=== PATIENT | female | born 1950 | race Caucasian/White ===

== ENCOUNTER 2019-08-31 13:02 | Inpatient (IN) | payer MEDICARE ==
[~2019-08-31] VITALS: Ht 172.7 cm; Wt 81.4 kg
[2019-08-31 13:49] LABS: BASO # 0.1 x10^3/uL (0.0-0.2); BASO % 1 % (0-3); EOS # 0.1 x10^3/uL (0.0-0.7); EOS % 1 % (0-3); HEMATOCRIT 40.6 % (36.0-47.0); HEMOGLOBIN 13.7 g/dL (12.0-15.5); LYMPH # 3.9 x10^3/uL (1.0-4.8); LYMPH % 36 % (24-48); MEAN CORPUSCULAR HEMOGLOBIN 31 pg (25-35); MEAN CORPUSCULAR HGB CONC 34 g/dL (31-37); MEAN CORPUSCULAR VOLUME 92 fL (79-100); MONO # 0.7 x10^3/uL (0.0-1.1); MONO % 7 % (0-9); NEUT # 5.9 x10^3uL (1.8-7.7); NEUT % 55 % (31-73); PLATELET COUNT 260 x10^3/uL (140-400); RED BLOOD COUNT 4.43 x10^6/uL (3.50-5.40); RED CELL DISTRIBUTION WIDTH 13.1 % (11.5-14.5); WHITE BLOOD COUNT 10.7 x10^3/uL (4.0-11.0)
[2019-08-31 13:56] LABS: AMPHETAMINE/METHAMPHETAMINE NEG (NEG); BARBITURATES NEG (NEG); BENZODIAZEPINES NEG (NEG); CANNABINOIDS NEG (NEG); COCAINE NEG (NEG); METHADONE NEG (NEG); OPIATES NEG (NEG); PHENCYCLIDINE NEG (NEG)
[2019-08-31 13:58] LABS: CALCIUM 10.3 mg/dL (8.5-10.1); CREATININE 0.8 mg/dL (0.6-1.0); GFR 70.9; POTASSIUM 3.7 mmol/L (3.5-5.1)
[2019-08-31 14:02] LABS: ACETAMIN < 2.0 mcg/mL (10-30); ETHANOL < 10 mg/dL (0-10); SALIC 1.2 mg/dL (2.8-20.0)
[2019-08-31 14:04] LABS: ALBUMIN 3.9 g/dL (3.4-5.0); ALBUMIN/GLOBULIN RATIO 0.9 (1.0-1.7); MAGNESIUM 2.2 mg/dL (1.8-2.4); TOTAL BILIRUBIN 0.3 mg/dL (0.2-1.0); TOTAL PROTEIN 8.4 g/dL (6.4-8.2)
[2019-08-31 14:05] LABS: BACTERIA,URINE MOD /HPF (0-FEW); BILIRUBIN,URINE NEG (NEG); CLARITY,URINE CLEAR; COLOR,URINE YELLOW; GLUCOSE,URINE NEG (NEG); NITRITE,URINE NEG (NEG); SQUAMOUS EPITHELIAL CELL,UR FEW /LPF; UROBILINOGEN,URINE 0.2 mg/dL (0.2 mg/dL); WBC,URINE 20-40 /HPF (0-4)
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
[2019-08-31] MEDS ORDERED: CIPROFLOXACIN HCL 500 MG TABLET PO ONE (14:30)
--- NOTE | 2019-08-31 15:24 | EKG ---
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
[2019-08-31] MEDS ORDERED: CETI10TA24 PO (16:41)
[2019-08-31] MEDS ORDERED: LEVO50TA5 PO (16:41)
[2019-08-31] MEDS ORDERED: OMEG1CAP50 PO (16:41)
[2019-08-31] MEDS ORDERED: GUAI100L12 PO (16:41)
[2019-08-31] MEDS ORDERED: BISA5TAB4 PO (16:41)
[2019-08-31] MEDS ORDERED: SERT50TA PO (16:41)
[2019-08-31] MEDS ORDERED: LEVE500T56 PO (16:41)
[2019-08-31] MEDS ORDERED: LEVE10007 PO (16:41)
[2019-08-31] MEDS ORDERED: QUET100T4 PO (16:41)
[2019-08-31] MEDS ORDERED: CHOL500021 PO (16:41)
[2019-08-31] MEDS ORDERED: IBUP400T18 PO (16:41)
[2019-08-31] MEDS ORDERED: CLON0.5T4 PO ×2 (16:41)
[2019-08-31] MEDS ORDERED: ALEN70TA6 PO (16:41)
[2019-08-31] MEDS ORDERED: ASPI-630 PO (16:41)
[2019-08-31] MEDS ORDERED: DONE10TA7 PO (16:41)
[2019-08-31] MEDS ORDERED: PRAV40TA2 PO (16:41)
[2019-08-31] MEDS ORDERED: ACET325T21 PO (16:41)
[2019-08-31] MEDS ORDERED: LACO150T PO (16:41)
[2019-08-31] MEDS ORDERED: HYDR25SU18 RC (16:41)
[2019-08-31] MEDS ORDERED: HYPR15DR11 OU (16:41)
[2019-08-31] MEDS ORDERED: LEVO5TAB2 PO (16:41)
[2019-08-31] MEDS ORDERED: SALI10002 MM (16:41)
[2019-08-31] MEDS ORDERED: AMLO5TAB10 PO (16:41)
[2019-08-31] MEDS ORDERED: DOCU-109 PO (16:41)
[2019-08-31 17:45] VITALS: BP 164/75
[2019-08-31] MEDS ORDERED: SALIVA SUBSTITUTION COMBO NO 9 MM PRN (18:00)
[2019-08-31] MEDS ORDERED: guaiFENesin 300 MG/15 ML LIQUID PO PRN (18:00)
[2019-08-31] MEDS ORDERED: clonazePAM 0.5 MG TABLET PO PRN (18:00)
[2019-08-31] MEDS ORDERED: HYDROCORTISONE ACETATE 25 MG SUPP.RECT RC PRN (18:00)
[2019-08-31] MEDS ORDERED: BISACODYL TAB 5 MG TABLET.DR. PO PRN (18:00)
[2019-08-31] MEDS ORDERED: METHYL SALICYLATE/MENTHOL TOPICAL OINTMENT 57GM TUBE. TP PRN (18:15)
[2019-08-31] MEDS ORDERED: MAGNESIUM HYDROXIDE 2,400 MG/30 ML ORAL.SUSP. PO PRN (18:15)
[2019-08-31] MEDS ORDERED: MAG HYDROX/AL HYDROX/SIMETH 30 ML ORAL.SUSP PO PRN (18:15)
[2019-08-31] MEDS: ATORVASTATIN CALCIUM 10 MG TABLET. PO SCH (20:37)
[2019-08-31] MEDS: QUEtiapine 100 MG TABLET. PO SCH (20:38)
[2019-08-31] MEDS: DONEPEZIL HCL 10 MG TABLET PO SCH (20:38)
[2019-08-31] MEDS: levETIRAcetam 500 MG TABLET PO SCH (20:38)
[2019-08-31] MEDS: LACOSAMIDE 50 MG TABLET PO SCH (20:39)
[2019-08-31] MEDS: POLYVINYL ALCOHOL 1.4% OPHTH SOLUTION 15ML BOTTLE. OU SCH (20:39)
--- NOTE | 2019-08-31 20:58 | PDOC ---
Exam Note: Danny Note: Please also refer to the separate dictated note~for this date of service dictated separately. Discussed the patient with Nursing staff reviewed the chart.~Reviewed interim history and current functioning. Reviewed vital signs,~Labs/ Radiology~and current medications noted below. Continue current treatment with the changes noted in the dictated addendum note Assessment: Vital Signs/I&O: Vital Signs Date Time Temp Pulse Resp B/P (MAP) Pulse Ox O2 Delivery O2 Flow Rate FiO2 08/31/19 17:45 97.3 63 18 164/75 (104) 96 Room Air Labs: Laboratory Tests Test 08/31/19 13:27 08/31/19 13:35 White Blood Count 10.7 x10^3/uL (4.0-11.0) Red Blood Count 4.43 x10^6/uL (3.50-5.40) Hemoglobin 13.7 g/dL (12.0-15.5) Hematocrit 40.6 % (36.0-47.0) Mean Corpuscular Volume 92 fL (79-100) Mean Corpuscular Hemoglobin 31 pg (25-35) Mean Corpuscular Hemoglobin Concent 34 g/dL (31-37) Red Cell Distribution Width 13.1 % (11.5-14.5) Platelet Count 260 x10^3/uL (140-400) Neutrophils (%) (Auto) 55 % (31-73) Lymphocytes (%) (Auto) 36 % (24-48) Monocytes (%) (Auto) 7 % (0-9) Eosinophils (%) (Auto) 1 % (0-3) Basophils (%) (Auto) 1 % (0-3) Neutrophils # (Auto) 5.9 x10^3uL (1.8-7.7) Lymphocytes # (Auto) 3.9 x10^3/uL (1.0-4.8) Monocytes # (Auto) 0.7 x10^3/uL (0.0-1.1) Eosinophils # (Auto) 0.1 x10^3/uL (0.0-0.7) Basophils # (Auto) 0.1 x10^3/uL (0.0-0.2) Sodium Level 141 mmol/L (136-145) Potassium Level 3.7 mmol/L (3.5-5.1) Chloride Level 102 mmol/L (98-107) Carbon Dioxide Level 26 mmol/L (21-32) Anion Gap 13 (6-14) Blood Urea Nitrogen 21 mg/dL (7-20) H Creatinine 0.8 mg/dL (0.6-1.0) Estimated GFR (Cockcroft-Gault) 70.9 BUN/Creatinine Ratio 26 (6-20) H Glucose Level 112 mg/dL (70-99) H Calcium Level 10.3 mg/dL (8.5-10.1) H Magnesium Level 2.2 mg/dL (1.8-2.4) Total Bilirubin 0.3 mg/dL (0.2-1.0) Aspartate Amino Transferase (AST) 24 U/L (15-37) Alanine Aminotransferase (ALT) 27 U/L (14-59) Alkaline Phosphatase 83 U/L (46-116) Total Protein 8.4 g/dL (6.4-8.2) H Albumin 3.9 g/dL (3.4-5.0) Albumin/Globulin Ratio 0.9 (1.0-1.7) L Salicylates Level 1.2 mg/dL (2.8-20.0) L Salicylate Last Dose Date Unknown Salicylate Last Dose Time Unknown Acetaminophen Level < 2.0 mcg/mL (10-30) L Acetaminophen Last Dose Date Unknown Acetaminophen Last Dose Time Unknown Ethyl Alcohol Level < 10 mg/dL (0-10) Urine Collection Type Unknown Urine Color Yellow Urine Clarity Clear Urine pH 7.0 Urine Specific [place] 1.015 Urine Protein Neg (NEG-TRACE) Urine Glucose (UA) Neg mg/dL (NEG) Urine Ketones (Stick) Neg mg/dL (NEG) Urine Blood Neg (NEG) Urine Nitrite Neg (NEG) Urine Bilirubin Neg (NEG) Urine Urobilinogen Dipstick 0.2 mg/dL (0.2 mg/dL) Urine Leukocyte Esterase Small (NEG) Urine RBC 1-2 /HPF (0-2) Urine WBC 20-40 /HPF (0-4) Urine Squamous Epithelial Cells Few /LPF Urine Bacteria Mod /HPF (0-FEW) Urine Opiates Screen Neg (NEG) Urine Methadone Screen Neg (NEG) Urine Barbiturates Neg (NEG) Urine Phencyclidine Screen Neg (NEG) Urine Amphetamine/Methamphetamine Neg (NEG) Urine Benzodiazepines Screen Neg (NEG) Urine Cocaine Screen Neg (NEG) Urine Cannabinoids Screen Neg (NEG) Urine Ethyl Alcohol Neg (NEG) Current Medications: Meds: Current Medications Medications (Trade) Dose Ordered Sig/Disha Route PRN Reason Start Time Stop Time Status Last Admin Dose Admin Ciprofloxacin (Cipro) 500 mg 1X ONCE PO 08/31/19 14:30 08/31/19 14:45 DC 08/31/19 14:30 Docusate Sodium (Colace) 100 mg BID PO 08/31/19 21:00 08/31/19 20:38 Donepezil HCl (Aricept) 10 mg HS PO 08/31/19 21:00 08/31/19 20:38 Quetiapine Fumarate (SEROquel) 100 mg QHS PO 08/31/19 21:00 08/31/19 20:38 Artificial Tears (Artificial Tears) 1 drop BID OU 08/31/19 21:00 08/31/19 20:39 Lacosamide (Vimpat) 150 mg BID PO 08/31/19 21:00 08/31/19 20:39 Levetiracetam (Keppra) 1,000 mg HS PO 08/31/19 21:00 08/31/19 20:38 Atorvastatin Calcium (Lipitor) 10 mg QHS PO 08/31/19 21:00 08/31/19 20:37 I have reviewed the current psychotropics carefully including drug interactions. Risk benefit ratio favors no change other than as noted in my dictated progress note. Diagnosis: Problems: (1) Aggressive behavior (2) Anxiety disorder (3) Mild cognitive impairment (4) Schizoaffective disorder, chronic condition with acute exacerbation (5) Impulse control disorder ELI RAMIREZ MD Aug 31, 2019 20:58
[2019-08-31] MEDS ORDERED: DOCUSATE SODIUM 100 MG CAPSULE PO SCH (21:00)
[2019-08-31] MEDS ORDERED: DOCUSATE SODIUM 100 MG CAPSULE PO PRN (23:45)
[2019-09-01 05:39] VITALS: BP 152/76
[2019-09-01] MEDS: LEVOTHYROXINE 50 MCG TABLET PO SCH (05:40)
[2019-09-01] MEDS ORDERED: LEVOCETIRIZINE DIHYDROCHLORIDE 5 MG PO SCH (09:00)
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
[2019-09-01] MEDS: LACOSAMIDE 50 MG TABLET PO SCH ×2 (11:21→20:22)
[2019-09-01] MEDS: POLYVINYL ALCOHOL 1.4% OPHTH SOLUTION 15ML BOTTLE. OU SCH ×2 (11:21→20:21)
[2019-09-01] MEDS: OMEGA-3 FATTY ACIDS/FISH OIL 1,000 MG CAPSULE. PO SCH (11:22)
[2019-09-01] MEDS: levETIRAcetam 500 MG TABLET PO SCH ×2 (11:22→20:21)
[2019-09-01] MEDS: SERTRALINE 50 MG TABLET. PO SCH (11:22)
[2019-09-01] MEDS: CETIRIZINE HCL 10 MG TABLET PO SCH (11:22)
[2019-09-01] MEDS: clonazePAM 0.5 MG TABLET PO SCH (11:22)
[2019-09-01] MEDS: ASPIRIN 81 MG TAB.CHEW PO SCH (11:22)
[2019-09-01] MEDS: amLODIPine BESYLATE 5 MG TABLET PO SCH (11:23)
[2019-09-01 15:35] VITALS: BP 155/78
[2019-09-01] MEDS ORDERED: CHOLECALCIFEROL (VITAMIN D3) 50,000 UNIT CAPSULE PO SCH (18:15)
[2019-09-01] MEDS: ATORVASTATIN CALCIUM 10 MG TABLET. PO SCH (20:22)
[2019-09-01] MEDS: DONEPEZIL HCL 10 MG TABLET PO SCH (20:22)
[2019-09-01] MEDS: QUEtiapine 100 MG TABLET. PO SCH (20:22)
--- NOTE | 2019-09-01 21:00 | PDOC ---
Exam Note: Danny Note: Please also refer to the separate dictated note~for this date of service dictated separately.~Patient seen individually. Discussed the patient with Nursing staff reviewed the chart.~Reviewed interim history and current functioning. Reviewed vital signs,~Labs/ Radiology~and current medications noted below. Continue current treatment with the changes noted in the dictated addendum note Assessment: Vital Signs/I&O: Vital Signs Date Time Temp Pulse Resp B/P (MAP) Pulse Ox O2 Delivery O2 Flow Rate FiO2 09/01/19 15:35 98.3 59 19 155/78 (103) 99 08/31/19 17:45 Room Air I & O 08/31/19 08/31/19 09/01/19 15:00 23:00 07:00 Intake Total 240 ml Balance 240 ml Current Medications: Meds: Current Medications Medications (Trade) Dose Ordered Sig/Disha Route PRN Reason Start Time Stop Time Status Last Admin Dose Admin Amlodipine Besylate (Norvasc) 5 mg DAILY PO 09/01/19 09:00 09/01/19 11:23 Aspirin (Children'S Aspirin) 81 mg DAILY PO 09/01/19 09:00 09/01/19 11:22 Cetirizine HCl (ZyrTEC) 10 mg DAILY PO 09/01/19 09:00 09/01/19 11:22 Clonazepam (KlonoPIN) 0.5 mg DAILY PO 09/01/19 09:00 09/01/19 11:22 Docusate Sodium (Colace) 100 mg BID PO 08/31/19 21:00 08/31/19 23:35 DC 08/31/19 20:38 Donepezil HCl (Aricept) 10 mg HS PO 08/31/19 21:00 09/01/19 20:22 Levetiracetam (Keppra) 500 mg DAILY PO 09/01/19 09:00 09/01/19 11:22 Levothyroxine Sodium (Synthroid) 50 mcg DAILY06 PO 09/01/19 06:00 09/01/19 05:40 Fish Oil (Fish Oil) 1,000 mg DAILY PO 09/01/19 09:00 09/01/19 11:22 Quetiapine Fumarate (SEROquel) 100 mg QHS PO 08/31/19 21:00 09/01/19 20:22 Sertraline HCl (Zoloft) 75 mg DAILY PO 09/01/19 09:00 09/01/19 11:22 Artificial Tears (Artificial Tears) 1 drop BID OU 08/31/19 21:00 09/01/19 20:21 Lacosamide (Vimpat) 150 mg BID PO 08/31/19 21:00 09/01/19 20:22 Levetiracetam (Keppra) 1,000 mg HS PO 08/31/19 21:00 09/01/19 20:21 Atorvastatin Calcium (Lipitor) 10 mg QHS PO 08/31/19 21:00 09/01/19 20:22 I have reviewed the current psychotropics carefully including drug interactions. Risk benefit ratio favors no change other than as noted in my dictated progress note. Diagnosis: Problems: (1) Aggressive behavior (2) Anxiety disorder (3) Mild cognitive impairment (4) Schizoaffective disorder, chronic condition with acute exacerbation (5) Impulse control disorder ELI RAMIREZ MD Sep 01, 2019 21:00
[2019-09-01 21:06] LABS: THYROXINE 6.3 ug/dL (4.5-12.0)
[2019-09-01 23:06] LABS: HEMOGLOBIN A1C 5.7 % (4.8-5.6)
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
[2019-09-02 05:12] VITALS: BP 144/67
[2019-09-02] MEDS: LEVOTHYROXINE 50 MCG TABLET PO SCH (05:22)
[2019-09-02] MEDS: ACETAMINOPHEN 325 MG TABLET PO PRN (05:23)
[2019-09-02] MEDS: LACOSAMIDE 50 MG TABLET PO SCH ×2 (07:56→19:47)
[2019-09-02] MEDS: CETIRIZINE HCL 10 MG TABLET PO SCH (07:56)
[2019-09-02] MEDS: POLYVINYL ALCOHOL 1.4% OPHTH SOLUTION 15ML BOTTLE. OU SCH ×2 (07:56→21:00)
[2019-09-02] MEDS: amLODIPine BESYLATE 5 MG TABLET PO SCH (07:57)
[2019-09-02] MEDS: clonazePAM 0.5 MG TABLET PO SCH (07:57)
[2019-09-02] MEDS: ASPIRIN 81 MG TAB.CHEW PO SCH (07:57)
[2019-09-02] MEDS: levETIRAcetam 500 MG TABLET PO SCH ×2 (07:57→19:46)
[2019-09-02] MEDS: OMEGA-3 FATTY ACIDS/FISH OIL 1,000 MG CAPSULE. PO SCH (07:57)
[2019-09-02] MEDS: SERTRALINE 50 MG TABLET. PO SCH (07:58)
[2019-09-02] MEDS: CHOLECALCIFEROL (VITAMIN D3) 50,000 UNIT CAPSULE PO SCH (08:05)
[2019-09-02 15:59] VITALS: BP 145/76
[2019-09-02] MEDS: DONEPEZIL HCL 10 MG TABLET PO SCH (19:46)
[2019-09-02] MEDS: ATORVASTATIN CALCIUM 10 MG TABLET. PO SCH (19:46)
[2019-09-02] MEDS: QUEtiapine 100 MG TABLET. PO SCH (19:46)
[2019-09-02] MEDS ORDERED: QUEtiapine 25 MG TABLET. PO ONE (20:15)
--- NOTE | 2019-09-02 21:36 | PDOC ---
Exam Note: Danny Note: Please also refer to the separate dictated note~for this date of service dictated separately.~Patient seen individually. Discussed the patient with Nursing staff reviewed the chart.~Reviewed interim history and current functioning. Reviewed vital signs,~Labs/ Radiology~and current medications noted below. Continue current treatment with the changes noted in the dictated addendum note Assessment: Vital Signs/I&O: Vital Signs Date Time Temp Pulse Resp B/P (MAP) Pulse Ox O2 Delivery O2 Flow Rate FiO2 09/02/19 15:59 98.0 65 16 145/76 (99) 96 08/31/19 17:45 Room Air I & O 09/01/19 09/01/19 09/02/19 15:00 23:00 07:00 Intake Total 720 ml 720 ml Balance 720 ml 720 ml Current Medications: Meds: Current Medications Medications (Trade) Dose Ordered Sig/Disha Route PRN Reason Start Time Stop Time Status Last Admin Dose Admin Vitamin D (Vitamin D3) 50,000 unit WEEKLY PO 09/02/19 09:00 09/02/19 08:05 I have reviewed the current psychotropics carefully including drug interactions. Risk benefit ratio favors no change other than as noted in my dictated progress note. Diagnosis: Problems: (1) Aggressive behavior (2) Anxiety disorder (3) Mild cognitive impairment (4) Schizoaffective disorder, chronic condition with acute exacerbation (5) Impulse control disorder ELI RAMIREZ MD Sep 02, 2019 21:36
--- NOTE | 2019-09-02 22:49 | CONS ---
DATE OF CONSULTATION: 09/01/2019 REFERRING PHYSICIAN: Dr. Pimentel. REASON FOR CONSULTATION: Longstanding history of seizure. HISTORY OF PRESENT ILLNESS: This is a 69-year-old right-handed female who was admitted last night on account of increased symptoms of agitation, depressions, and violent behaviors. Neuro consult was requested because the patient has had a history of seizure disorder since age of 4. According to the patient on the day of admission, she had "small seizure", described as jerking movement of the right upper extremity, lasted a few minutes. The patient did recall the event. She did not have any postictal confusion, disorientation, loss of consciousness, bowel or bladder incontinence. The etiology of her seizure is uncertain, but she thinks the seizure resulted from head injuries and brain damage. She has been followed by a neurologist at [facility] a few years back, . She has been on anticonvulsant of Keppra and Vimpat. According to the patient, last EEG performed several years ago and was normal. Her seizure usually described as "small type", consistent of jerky movements of the right upper extremity and sometimes left upper extremity, lasted few minutes without significant postictal confusion or disorientation. The patient usually did recall the events. The patient has had a longstanding history of multiple psychiatric problems, but recently at the [facility], she became violent, agitated and verbally appropriate and belligerent towards the staff. She has been admitted to the psych floor several times, but because of failure of the outpatient psychiatric care, the patient was transferred into the [facility] for further evaluation and care. PAST MEDICAL HISTORY: Significant for history of seizure disorder as described above, probably due to brain and head injuries, osteoporosis, history of osteoarthritis, and early dementia. PAST SURGICAL HISTORY: Significant osteoarthritis, hypertension, hypothyroidism, hyperlipidemia. PAST PSYCHIATRIC HISTORY: Anxiety, bipolar disorder, schizoaffective disorders. FAMILY HISTORY: Noncontributory. SOCIAL HISTORY: The patient is a [facility] resident for the last 10 years. She has been wheelchair confined secondary to frequent falls last few years. She is a former smoker. She denies alcohol drinking or illicit drug use. REVIEW OF SYSTEMS: A 10-point review of system was performed as mentioned above in history of present illness, otherwise unremarkable. CURRENT MEDICATIONS: Fosamax, vitamin D3, sertraline, fish oil, Keppra 500 mg twice daily 500 mg a.m. and 1000 mg at bedtime, Vimpat 150 mg daily. Levothyroxine as mentioned 50 mcg daily, Artificial Tears, Seroquel 100 mg daily, donepezil 10 mg at bedtime, Motrin 400 mg p.r.n. for pain, clonazepam 0.5 mg b.i.d. p.r.n. for anxiety and Tylenol 650 mg q.4 hours p.r.n. for pain. ALLERGIES: ADHESIVE TAPE, BACITRACIN, ETHER, NEOMYCIN, POLYMYXIN B, AND PROPOXYPHENE. PHYSICAL EXAMINATION: GENERAL: A well-developed, well-nourished female, not in acute distress. She weighs 77.6 kilos. VITAL SIGNS: Blood pressure 152/76, respiratory rate 16, pulse is 63, temperature 98.4, and oxygen saturation 95% on room air. HEENT: Normocephalic, atraumatic, otherwise unremarkable. NECK: Supple. Negative for carotid bruit, lymphadenopathy or thyromegaly. LUNGS: Clear to A and P. CARDIOVASCULAR: Regular rate and rhythm, normal S1, S2. There is no S3, S4 or murmurs. ABDOMEN: Soft. Bowel sounds positive. EXTREMITIES: Negative for cyanosis, clubbing, or pitting edema. NEUROLOGICAL: MENTAL STATUS: The patient is alert and oriented x 3. Speech is fluent. There is no language dysfunction. Memory, judgment, and abstracting thinking are fair. The patient denies hallucination or delusion. CRANIAL NERVES: Visual francis are full. The pupils are reactive to light and accommodation. The extraocular movements are intact. There is no nystagmus. There is no facial motor or sensory deficit. Hearing is intact bilaterally. The palate is elevated symmetrically. Sternocleidomastoid muscles are powerful bilaterally. The patient shrugs her shoulders symmetrically, protrudes her tongue in the midline without fasciculation or atrophy. MOTOR EXAMINATION: No focal muscle bulk was seen. The tone is normal. The strength is 5/5 throughout. SENSORY EXAMINATION: Revealed normal pinprick, light touch, vibratory and position senses. Deep tendon reflexes were symmetric and hypoactive with absent Achilles responses bilaterally. GAIT: The patient uses a wheelchair for ambulation, the stance is unsteady. LABORATORY DATA: CBC revealed white blood cells of 10.7 thousand, hemoglobin 13.7, hematocrit 40.6, and platelet count 260,000. Chemistry revealed sodium of 141, potassium 3.7, chloride 102, CO2 25, BUN 21, creatinine 0.8, glucose is 112. Hemoglobin A1c is 5.7, normal magnesium and iron. Lipid profile reveals high triglyceride at 310 with high cholesterol at 241 with high LDL at 124. Normal vitamin B12 at 502 with normal thyroid profile. Urinalysis revealed small urinary leukocyte esterase with white blood cells of 20-40 and moderate bacteria. Urine drug screen is negative and PRP is nonreactive and Treponema pallidum antibodies nonreactive. IMPRESSION: 1. Longstanding history of seizure described as a simple partial seizure and sometimes complex partial seizure, presented with jerky movements of the upper extremity without complete loss of consciousness, bowel or bladder incontinence or postictal confusion. 2. Multiple medical problems includes hypertension, hyperlipidemia, hypothyroidism, osteoporosis. 3. Multiple psychiatric problems include bipolar disorders, anxiety disorders, schizoaffective disorders with intermittent psychotic features. RECOMMENDATIONS: 1. We will continue with current management with current anticonvulsants, Keppra and Vimpat. 2. Continue with current medical and psychiatric care. M Elvin WEEMS MD DR: LEON/stephenie JOB#: [id number] / [id number]
--- NOTE | 2019-09-03 03:45 | PN ---
DATE: 09/01/2019 PSYCHIATRIC PROGRESS NOTE This late entry 09/01/2019 covers elements not covered in my initial note. SUBJECTIVE: I met with the patient evening of 09/01/2019. The patient slept 4-1/4 hours previous night per BLANCA Davis. She has had no behaviors, remains confused, redirectable, somewhat withdrawn in the evening. REVIEW OF SYSTEMS: No CV, , pulmonary, eye system symptoms on review. Gait unsteady, in wheelchair. Reliability poor. MENTAL STATUS EXAM: Oriented to herself. Insight, judgment, recent and remote memory, attention, concentration, fund of knowledge poor, consistent with her diagnosis mentioned in my initial note. PLAN: No change from initial note. MAN Gil RAMIREZ MD DR: LEIDY/stephenie JOB#: [id number] / [id number]
--- NOTE | 2019-09-03 03:48 | PN ---
DATE: 09/01/2019 PSYCHIATRIC PROGRESS NOTE This late entry 09/01/2019 covers elements not covered in my initial note. SUBJECTIVE: I met with the patient evening of 09/01/2019. The patient slept 8 hours previous night. She remains somewhat withdrawn, anxious with some twitching of facial muscles and we have consulted Dr. Castro. She does have a history of seizure disorder an neurology consult will be helpful. REVIEW OF SYSTEMS: Ambulation impaired, in wheelchair. No CV, , pulmonary, eye system symptoms on review. MENTAL STATUS EXAM: Reasonably oriented. Speech is coherent, abstraction fair, computation impaired, language function intact, attention span short. Mood and affect remain somewhat anxious, labile. LABORATORY DATA: Reviewed. IMPRESSION: Schizoaffective disorder, bipolar type, mixed with psychotic features; anxiety disorder, unspecified. PLAN: The patient states she was having active hallucinations before she came here and was started on Seroquel, which seemed to help the hallucinations, but she still has vague feelings of having something on her body, which makes her more agitated. Her urine has reflex to culture and this probably also account for some of her intermittent agitation. We will continue to adjust her psychotropics and treat the UTI if this is positive and Neurology consult as noted above. ELI RAMIREZ MD DR: LEIDY/stephenie JOB#: [id number] / [id number]
[2019-09-03] MEDS: LEVOTHYROXINE 50 MCG TABLET PO SCH (05:52)
[2019-09-03 06:40] VITALS: BP 145/80
[2019-09-03] MEDS: OMEGA-3 FATTY ACIDS/FISH OIL 1,000 MG CAPSULE. PO SCH (08:25)
[2019-09-03] MEDS: ASPIRIN 81 MG TAB.CHEW PO SCH (08:25)
[2019-09-03] MEDS: amLODIPine BESYLATE 5 MG TABLET PO SCH (08:25)
[2019-09-03] MEDS: SERTRALINE 50 MG TABLET. PO SCH (08:25)
[2019-09-03] MEDS: CETIRIZINE HCL 10 MG TABLET PO SCH (08:25)
[2019-09-03] MEDS: clonazePAM 0.5 MG TABLET PO SCH (08:25)
[2019-09-03] MEDS: levETIRAcetam 500 MG TABLET PO SCH ×2 (08:25→20:05)
[2019-09-03] MEDS: LACOSAMIDE 50 MG TABLET PO SCH ×2 (08:26→20:06)
[2019-09-03] MEDS: POLYVINYL ALCOHOL 1.4% OPHTH SOLUTION 15ML BOTTLE. OU SCH ×2 (08:26→20:04)
[2019-09-03 15:42] VITALS: BP 146/75
--- NOTE | 2019-09-03 16:30 | PN ---
DATE: 09/02/2019 PSYCHIATRIC PROGRESS NOTE This late entry 09/02/2019 covers the elements not covered in my initial note. SUBJECTIVE: I met with the patient in the evening. Per nursing report by Makenna RN, the patient slept 8 hours previous night. She has been cooperative with medications, had some tremors, and has been seen by Dr. aCstro, Neurology. REVIEW OF SYSTEMS: Ambulation impaired, in wheelchair. No CV, , pulmonary, eye system symptoms on review. MENTAL STATUS EXAM: Oriented to herself and situation. Speech has some latency, coherent. Abstraction fair, computation impaired, language function intact. Mood and affect, somewhat anxious, depressed at times. No suicidal ideation. The patient states the active auditory hallucination she was having in the past, seem to have been improved since she started the Seroquel. She complains of having some vague tactile hallucinations, feeling things on her skin all over her body. She has been seen by Dr. Castro, Neurology. Remains on Vimpat and Keppra for her seizures. LABORATORY DATA: Reviewed. IMPRESSION: Schizoaffective disorder, bipolar type, mixed with psychotic features; anxiety disorder, unspecified. PLAN: Increase Seroquel to 125 mg at bedtime. Maintain Klonopin p.r.n., Zoloft 75 mg a day, Aricept 10 mg a day. Rest unchanged. MAN Gil RAMIREZ MD DR: LEIDY/stephenie JOB#: [id number] / [id number]
[2019-09-03] MEDS: DONEPEZIL HCL 10 MG TABLET PO SCH (20:04)
[2019-09-03] MEDS: QUEtiapine 100 MG TABLET. PO SCH (20:05)
[2019-09-03] MEDS: ATORVASTATIN CALCIUM 10 MG TABLET. PO SCH (20:05)
[2019-09-03] MEDS: QUEtiapine 25 MG TABLET. PO SCH (20:06)
--- NOTE | 2019-09-03 20:45 | PDOC ---
Exam Note: Danny Note: Please also refer to the separate dictated note~for this date of service dictated separately.~Patient seen individually. Discussed the patient with Nursing staff reviewed the chart.~Reviewed interim history and current functioning. Reviewed vital signs,~Labs/ Radiology~and current medications noted below. Continue current treatment with the changes noted in the dictated addendum note Assessment: Vital Signs/I&O: Vital Signs Date Time Temp Pulse Resp B/P (MAP) Pulse Ox O2 Delivery O2 Flow Rate FiO2 09/03/19 15:42 98.0 69 20 146/75 (98) 98 08/31/19 17:45 Room Air I & O 09/02/19 09/02/19 09/03/19 15:00 23:00 07:00 Intake Total 960 ml 720 ml Balance 960 ml 720 ml Current Medications: Meds: Current Medications Medications (Trade) Dose Ordered Sig/Disha Route PRN Reason Start Time Stop Time Status Last Admin Dose Admin Quetiapine Fumarate (SEROquel) 100 mg QHS PO 09/03/19 21:00 09/03/19 20:05 Quetiapine Fumarate (SEROquel) 25 mg QHS PO 09/03/19 21:00 09/03/19 20:06 I have reviewed the current psychotropics carefully including drug interactions. Risk benefit ratio favors no change other than as noted in my dictated progress note. Diagnosis: Problems: (1) Aggressive behavior (2) Anxiety disorder (3) Mild cognitive impairment (4) Schizoaffective disorder, chronic condition with acute exacerbation (5) Impulse control disorder ELI RAMIREZ MD Sep 03, 2019 20:45
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
[2019-09-04] MEDS: LEVOTHYROXINE 50 MCG TABLET PO SCH (05:16)
[2019-09-04 05:49] VITALS: BP 115/68
[2019-09-04] MEDS: ALENDRONATE SODIUM 35 MG TABLET PO SCH (08:36)
[2019-09-04] MEDS: ASPIRIN 81 MG TAB.CHEW PO SCH (08:37)
[2019-09-04] MEDS: levETIRAcetam 500 MG TABLET PO SCH ×2 (08:37→19:50)
[2019-09-04] MEDS: clonazePAM 0.5 MG TABLET PO SCH (08:37)
[2019-09-04] MEDS: CETIRIZINE HCL 10 MG TABLET PO SCH (08:37)
[2019-09-04] MEDS: amLODIPine BESYLATE 5 MG TABLET PO SCH (08:37)
[2019-09-04] MEDS: OMEGA-3 FATTY ACIDS/FISH OIL 1,000 MG CAPSULE. PO SCH (08:37)
[2019-09-04] MEDS: POLYVINYL ALCOHOL 1.4% OPHTH SOLUTION 15ML BOTTLE. OU SCH ×2 (08:37→19:48)
[2019-09-04] MEDS: SERTRALINE 50 MG TABLET. PO SCH (08:38)
[2019-09-04] MEDS: LACOSAMIDE 50 MG TABLET PO SCH ×2 (08:38→19:49)
[2019-09-04 15:45] VITALS: BP 158/75
[2019-09-04] MEDS: QUEtiapine 100 MG TABLET. PO SCH (19:49)
[2019-09-04] MEDS: CEFDINIR 300 MG CAPSULE PO SCH (19:49)
[2019-09-04] MEDS: ATORVASTATIN CALCIUM 10 MG TABLET. PO SCH (19:49)
[2019-09-04] MEDS: QUEtiapine 25 MG TABLET. PO SCH (19:49)
[2019-09-04] MEDS: LACTOBACILLUS RHAMNOSUS GG 1 CAPSULE. PO SCH (19:50)
[2019-09-04] MEDS: DONEPEZIL HCL 10 MG TABLET PO SCH (19:50)
--- NOTE | 2019-09-04 21:06 | PDOC ---
Exam Note: Danny Note: Please also refer to the separate dictated note~for this date of service dictated separately.~Patient seen individually. Discussed the patient with Nursing staff reviewed the chart.~Reviewed interim history and current functioning. Reviewed vital signs,~Labs/ Radiology~and current medications noted below. Continue current treatment with the changes noted in the dictated addendum note Assessment: Vital Signs/I&O: Vital Signs Date Time Temp Pulse Resp B/P (MAP) Pulse Ox O2 Delivery O2 Flow Rate FiO2 09/04/19 15:45 97.2 52 19 158/75 (102) 96 Room Air I & O 09/03/19 09/03/19 09/04/19 15:00 23:00 07:00 Intake Total 600 ml 240 ml Balance 600 ml 240 ml Current Medications: Meds: Current Medications Medications (Trade) Dose Ordered Sig/Disha Route PRN Reason Start Time Stop Time Status Last Admin Dose Admin Alendronate Sodium (Fosamax) 70 mg WEEKLYAC PO 09/04/19 07:00 09/04/19 08:36 Cefdinir (Omnicef) 300 mg BID PO 09/04/19 21:00 09/11/19 21:00 09/04/19 19:49 Lactobacillus Rhamnosus (Culturelle) 1 cap BID PO 09/04/19 21:00 09/04/19 19:50 I have reviewed the current psychotropics carefully including drug interactions. Risk benefit ratio favors no change other than as noted in my dictated progress note. Diagnosis: Problems: (1) Aggressive behavior (2) Anxiety disorder (3) Mild cognitive impairment (4) Schizoaffective disorder, chronic condition with acute exacerbation (5) Impulse control disorder ELI RAMIREZ MD Sep 04, 2019 21:05
--- NOTE | 2019-09-04 22:33 | PN ---
DATE: 09/03/2019 PSYCHIATRIC PROGRESS NOTE This late entry 09/03/2019 covers elements not covered in my initial note. SUBJECTIVE: I met with the patient evening of 09/03/2019. The patient slept 8 hours previous night per BLANCA Tolentino. She has been pleasant. No seizure episodes noted. Cooperative with medications. REVIEW OF SYSTEMS: Ambulation impaired, in wheelchair. No CV, , pulmonary, eye, ENT system symptoms on review. MENTAL STATUS EXAM: Oriented to herself and situation. Speech has some latency, coherent. Abstraction fair, computation impaired, language function intact, attention span short. Mood and affect improved. LABORATORY DATA: Reviewed. IMPRESSION: Unchanged from initial note. PLAN: Continue current psychotropics. Seroquel has been increased to 125 mg at bedtime. Rest unchanged. MAN Gil RAMIREZ MD DR: LEIDY/stephenie JOB#: [id number] / [id number]
[2019-09-05 05:35] VITALS: BP 145/73
[2019-09-05] MEDS: LEVOTHYROXINE 50 MCG TABLET PO SCH (05:36)
[2019-09-05] MEDS: LACTOBACILLUS RHAMNOSUS GG 1 CAPSULE. PO SCH ×2 (08:52→20:10)
[2019-09-05] MEDS: CETIRIZINE HCL 10 MG TABLET PO SCH (08:52)
[2019-09-05] MEDS: LACOSAMIDE 50 MG TABLET PO SCH ×2 (08:52→20:11)
[2019-09-05] MEDS: CEFDINIR 300 MG CAPSULE PO SCH ×2 (08:52→20:10)
[2019-09-05] MEDS: OMEGA-3 FATTY ACIDS/FISH OIL 1,000 MG CAPSULE. PO SCH (08:52)
[2019-09-05] MEDS: SERTRALINE 50 MG TABLET. PO SCH (08:52)
[2019-09-05] MEDS: POLYVINYL ALCOHOL 1.4% OPHTH SOLUTION 15ML BOTTLE. OU SCH ×2 (08:53→20:10)
[2019-09-05] MEDS: levETIRAcetam 500 MG TABLET PO SCH ×2 (08:53→20:11)
[2019-09-05] MEDS: ASPIRIN 81 MG TAB.CHEW PO SCH (08:53)
[2019-09-05] MEDS: clonazePAM 0.5 MG TABLET PO SCH (08:58)
[2019-09-05] MEDS: amLODIPine BESYLATE 5 MG TABLET PO SCH (08:59)
[2019-09-05 15:43] VITALS: BP 159/71
[2019-09-05] MEDS: QUEtiapine 50 MG TABLET. PO SCH (20:10)
[2019-09-05] MEDS: ATORVASTATIN CALCIUM 10 MG TABLET. PO SCH (20:10)
[2019-09-05] MEDS: DONEPEZIL HCL 10 MG TABLET PO SCH (20:10)
[2019-09-05] MEDS: QUEtiapine 100 MG TABLET. PO SCH (20:10)
--- NOTE | 2019-09-05 21:11 | PDOC ---
Exam Note: Danny Note: Please also refer to the separate dictated note~for this date of service dictated separately.~Patient seen individually. Discussed the patient with Nursing staff reviewed the chart.~Reviewed interim history and current functioning. Reviewed vital signs,~Labs/ Radiology~and current medications noted below. Continue current treatment with the changes noted in the dictated addendum note Assessment: Vital Signs/I&O: Vital Signs Date Time Temp Pulse Resp B/P (MAP) Pulse Ox O2 Delivery O2 Flow Rate FiO2 09/05/19 15:43 98.0 52 18 159/71 (100) 94 09/04/19 15:45 Room Air I & O 09/04/19 09/04/19 09/05/19 15:00 23:00 07:00 Intake Total 720 ml 600 ml Balance 720 ml 600 ml Current Medications: Meds: Current Medications Medications (Trade) Dose Ordered Sig/Disha Route PRN Reason Start Time Stop Time Status Last Admin Dose Admin Quetiapine Fumarate (SEROquel) 50 mg QHS PO 09/05/19 21:00 09/05/19 20:10 I have reviewed the current psychotropics carefully including drug interactions. Risk benefit ratio favors no change other than as noted in my dictated progress note. Diagnosis: Problems: (1) Aggressive behavior (2) Anxiety disorder (3) Mild cognitive impairment (4) Schizoaffective disorder, chronic condition with acute exacerbation (5) Impulse control disorder ELI RAMIREZ MD Sep 05, 2019 21:11
[2019-09-05] MEDS: MELATONIN 3 MG TABLET PO PRN (21:16)
--- NOTE | 2019-09-05 21:36 | PN ---
DATE: 09/04/2019 PSYCHIATRIC PROGRESS NOTE This late entry 09/04/2019 covers elements not covered in my initial note. SUBJECTIVE: I met with the patient evening of 09/04/2019. The patient slept about 8-1/4 hours previous night, per BLANCA Lizarraga. She has been cooperative, gets a little anxious, still feels there are things all over her body, but feels the voices have subsided. REVIEW OF SYSTEMS: Ambulation impaired, in wheelchair. No CV, , pulmonary, eye system symptoms on review. MENTAL STATUS EXAM: The patient is oriented to herself and situation. Speech is coherent, abstraction fair, computation impaired, language function intact, attention span short. Mood and affect is improved. LABORATORY DATA: Reviewed. IMPRESSION: Unchanged from initial note. PLAN: No change from initial note. MAN Gil RAMIREZ MD DR: LEIDY/stephenie JOB#: [id number] / [id number]
[2019-09-06 05:44] VITALS: BP 121/52
[2019-09-06] MEDS: LEVOTHYROXINE 50 MCG TABLET PO SCH (05:53)
[2019-09-06] MEDS: LACOSAMIDE 50 MG TABLET PO SCH ×2 (08:51→20:50)
[2019-09-06] MEDS: ASPIRIN 81 MG TAB.CHEW PO SCH (08:52)
[2019-09-06] MEDS: LACTOBACILLUS RHAMNOSUS GG 1 CAPSULE. PO SCH ×2 (08:52→20:50)
[2019-09-06] MEDS: amLODIPine BESYLATE 5 MG TABLET PO SCH (08:52)
[2019-09-06] MEDS: levETIRAcetam 500 MG TABLET PO SCH ×2 (08:52→20:50)
[2019-09-06] MEDS: SERTRALINE 50 MG TABLET. PO SCH (08:52)
[2019-09-06] MEDS: CETIRIZINE HCL 10 MG TABLET PO SCH (08:53)
[2019-09-06] MEDS: OMEGA-3 FATTY ACIDS/FISH OIL 1,000 MG CAPSULE. PO SCH (08:53)
[2019-09-06] MEDS: POLYVINYL ALCOHOL 1.4% OPHTH SOLUTION 15ML BOTTLE. OU SCH ×2 (08:53→20:49)
[2019-09-06] MEDS: CEFDINIR 300 MG CAPSULE PO SCH ×2 (08:53→20:49)
[2019-09-06] MEDS: clonazePAM 0.5 MG TABLET PO SCH (09:00)
[2019-09-06 15:48] VITALS: BP 149/63
[2019-09-06] MEDS: QUEtiapine 100 MG TABLET. PO SCH (20:50)
[2019-09-06] MEDS: QUEtiapine 50 MG TABLET. PO SCH (20:50)
[2019-09-06] MEDS: ATORVASTATIN CALCIUM 10 MG TABLET. PO SCH (20:50)
[2019-09-06] MEDS: DONEPEZIL HCL 10 MG TABLET PO SCH (20:50)
--- NOTE | 2019-09-06 21:17 | PN ---
DATE: 09/05/2019 PSYCHIATRIC PROGRESS NOTE This late entry, 09/05, covers elements not covered in my initial note. SUBJECTIVE: I met with the patient evening of 09/05. Per Ryan RN, the patient slept 8-1/2 hours previous night. She has been calm, compliant, still believes there are things on her skin on her body, but the auditory hallucination seemed to have subsided. REVIEW OF SYSTEMS: Ambulation impaired, in wheelchair. No CV, , pulmonary, eye, ENT system symptoms on review. Reliability fair. MENTAL STATUS EXAM: Oriented to herself and situation. Speech is coherent, abstraction fair, computation impaired, language function intact, attention span short. Mood and affect at times somewhat withdrawn, anxious. LABORATORY DATA: Reviewed. IMPRESSION: Bipolar disorder, mixed with psychotic features, in partial remission; anxiety disorder, unspecified; seizure disorder. PLAN: The patient's auditory hallucinations have responded to the Seroquel. We will increase it from 125 mg at bedtime to 150 mg at bedtime for her tactile misperception/hallucinations she is experiencing. Continue Zoloft 75 mg a day, Keppra and Vimpat for her seizures, Klonopin 0.5 mg daily plus b.i.d. p.r.n. anxiety and Aricept 10 mg a day. Adjust further as clinically indicated. MAN Gil RAMIREZ MD DR: LEIDY/stephenie JOB#: [id number] / [id number]
--- NOTE | 2019-09-06 21:51 | PDOC ---
Exam Note: Danny Note: Please also refer to the separate dictated note~for this date of service dictated separately.~Patient seen individually. Discussed the patient with Nursing staff reviewed the chart.~Reviewed interim history and current functioning. Reviewed vital signs,~Labs/ Radiology~and current medications noted below. Continue current treatment with the changes noted in the dictated addendum note Assessment: Vital Signs/I&O: Vital Signs Date Time Temp Pulse Resp B/P (MAP) Pulse Ox O2 Delivery O2 Flow Rate FiO2 09/06/19 15:48 97.7 76 16 149/63 (91) 96 Room Air I & O 09/05/19 09/05/19 09/06/19 15:00 23:00 07:00 Intake Total 840 ml 600 ml Balance 840 ml 600 ml Current Medications: I have reviewed the current psychotropics carefully including drug interactions. Risk benefit ratio favors no change other than as noted in my dictated progress note. Diagnosis: Problems: (1) Aggressive behavior (2) Anxiety disorder (3) Mild cognitive impairment (4) Schizoaffective disorder, chronic condition with acute exacerbation (5) Impulse control disorder ELI RAMIREZ MD Sep 06, 2019 21:51
[2019-09-07] MEDS: LEVOTHYROXINE 50 MCG TABLET PO SCH (05:31)
[2019-09-07 06:16] VITALS: BP 114/61
[2019-09-07] MEDS: LACTOBACILLUS RHAMNOSUS GG 1 CAPSULE. PO SCH ×2 (08:12→19:51)
[2019-09-07] MEDS: ASPIRIN 81 MG TAB.CHEW PO SCH (08:12)
[2019-09-07] MEDS: SERTRALINE 50 MG TABLET. PO SCH (08:12)
[2019-09-07] MEDS: CETIRIZINE HCL 10 MG TABLET PO SCH (08:12)
[2019-09-07] MEDS: levETIRAcetam 500 MG TABLET PO SCH ×2 (08:12→19:53)
[2019-09-07] MEDS: OMEGA-3 FATTY ACIDS/FISH OIL 1,000 MG CAPSULE. PO SCH (08:12)
[2019-09-07] MEDS: CEFDINIR 300 MG CAPSULE PO SCH ×2 (08:12→19:52)
[2019-09-07] MEDS: amLODIPine BESYLATE 5 MG TABLET PO SCH (08:13)
[2019-09-07] MEDS: LACOSAMIDE 50 MG TABLET PO SCH ×2 (08:13→19:53)
[2019-09-07] MEDS: clonazePAM 0.5 MG TABLET PO SCH (08:14)
[2019-09-07] MEDS: POLYVINYL ALCOHOL 1.4% OPHTH SOLUTION 15ML BOTTLE. OU SCH ×2 (08:14→19:51)
[2019-09-07 15:54] VITALS: BP 146/78
[2019-09-07] MEDS: QUEtiapine 100 MG TABLET. PO SCH (19:52)
[2019-09-07] MEDS: QUEtiapine 50 MG TABLET. PO SCH (19:53)
[2019-09-07] MEDS: ATORVASTATIN CALCIUM 10 MG TABLET. PO SCH (19:53)
[2019-09-07] MEDS: DONEPEZIL HCL 10 MG TABLET PO SCH (19:53)
[2019-09-07] MEDS: MELATONIN 3 MG TABLET PO PRN (20:38)
--- NOTE | 2019-09-07 20:50 | PDOC ---
Exam Note: Danny Note: Please also refer to the separate dictated note~for this date of service dictated separately.~Patient seen individually. Discussed the patient with Nursing staff reviewed the chart.~Reviewed interim history and current functioning. Reviewed vital signs,~Labs/ Radiology~and current medications noted below. Continue current treatment with the changes noted in the dictated addendum note Assessment: Vital Signs/I&O: Vital Signs Date Time Temp Pulse Resp B/P (MAP) Pulse Ox O2 Delivery O2 Flow Rate FiO2 09/07/19 15:54 97.8 57 18 146/78 (100) 96 Room Air I & O 09/06/19 09/06/19 09/07/19 15:00 23:00 07:00 Intake Total 720 ml 720 ml Balance 720 ml 720 ml Current Medications: I have reviewed the current psychotropics carefully including drug interactions. Risk benefit ratio favors no change other than as noted in my dictated progress note. Diagnosis: Problems: (1) Aggressive behavior (2) Anxiety disorder (3) Mild cognitive impairment (4) Schizoaffective disorder, chronic condition with acute exacerbation (5) Impulse control disorder ELI RAMIREZ MD Sep 07, 2019 20:50
[2019-09-08] MEDS: ACETAMINOPHEN 325 MG TABLET PO PRN (05:38)
[2019-09-08] MEDS: LEVOTHYROXINE 50 MCG TABLET PO SCH (05:38)
[2019-09-08 05:55] VITALS: BP 121/68
[2019-09-08] MEDS: LACTOBACILLUS RHAMNOSUS GG 1 CAPSULE. PO SCH ×2 (08:15→19:48)
[2019-09-08] MEDS: levETIRAcetam 500 MG TABLET PO SCH ×2 (08:16→19:49)
[2019-09-08] MEDS: clonazePAM 0.5 MG TABLET PO SCH (08:16)
[2019-09-08] MEDS: SERTRALINE 50 MG TABLET. PO SCH (08:16)
[2019-09-08] MEDS: CEFDINIR 300 MG CAPSULE PO SCH ×2 (08:16→19:48)
[2019-09-08] MEDS: IBUPROFEN 400 MG TABLET. PO PRN ×2 (08:16→20:53)
[2019-09-08] MEDS: ASPIRIN 81 MG TAB.CHEW PO SCH (08:17)
[2019-09-08] MEDS: LACOSAMIDE 50 MG TABLET PO SCH ×2 (08:17→19:48)
[2019-09-08] MEDS: OMEGA-3 FATTY ACIDS/FISH OIL 1,000 MG CAPSULE. PO SCH (08:17)
[2019-09-08] MEDS: CETIRIZINE HCL 10 MG TABLET PO SCH (08:17)
[2019-09-08] MEDS: amLODIPine BESYLATE 5 MG TABLET PO SCH (08:18)
[2019-09-08] MEDS: POLYVINYL ALCOHOL 1.4% OPHTH SOLUTION 15ML BOTTLE. OU SCH ×2 (08:20→19:47)
--- NOTE | 2019-09-08 13:12 | PN ---
DATE: 09/06/2019 PSYCHIATRIC PROGRESS NOTE This late entry 09/06/2019 covers elements not covered in my initial note. SUBJECTIVE: I met with the patient evening of 09/06/2019. Per BLANCA Bolton, the patient slept 7-1/4 hours previous night. She has been pleasant, compliant with medications, was on the telephone with her brother in the evening and seemed less anxious overall. As I met with her individually, she still complains of having some tactile hallucinations, feels there are things on her skin and her body, but less intense. REVIEW OF SYSTEMS: Ambulation impaired, in wheelchair. No CV, , pulmonary, eye system symptoms on review. MENTAL STATUS EXAM: Reasonably oriented. Speech is coherent, has some latency. Abstraction fair, computation impaired, language function intact, attention span short. Mood and affect less anxious. No suicidal ideation. LABORATORY DATA: Reviewed. IMPRESSION: Unchanged from initial note. PLAN: No change from initial note. ELI RAMIREZ MD DR: LEIDY/stephenie JOB#: [id number] / [id number]
--- NOTE | 2019-09-08 13:29 | PN ---
DATE: 09/07/2019 PSYCHIATRIC PROGRESS NOTE This late entry 09/07/2019 covers elements not covered in my initial note. SUBJECTIVE: I met with the patient in the evening of 09/07/2019. The patient slept 7-1/4 hours previous night. Per BLANCA Davis, the patient has been doing better and has been attending groups, little more interactive and was in the music group, calm, compliant, more pleasant. REVIEW OF SYSTEMS: Ambulation impaired, in wheelchair. No CV, , pulmonary, eye system symptoms on review. MENTAL STATUS EXAM: Reasonably oriented. Speech is coherent, abstraction fair, computation impaired, language function intact, attention span short. She is less obsessed with feeling things on her body and her skin as I met with her. LABORATORY DATA: Reviewed. IMPRESSION: Schizoaffective disorder, bipolar type, mixed with psychotic features, in partial remission; anxiety disorder, unspecified; seizure disorder. Rest unchanged. PLAN: No change from initial note. ELI RAMIREZ MD DR: LEIDY/stephenie JOB#: [id number] / [id number]
[2019-09-08 16:06] VITALS: BP 149/58
[2019-09-08] MEDS: QUEtiapine 100 MG TABLET. PO SCH (19:48)
[2019-09-08] MEDS: ATORVASTATIN CALCIUM 10 MG TABLET. PO SCH (19:48)
[2019-09-08] MEDS: QUEtiapine 50 MG TABLET. PO SCH (19:48)
[2019-09-08] MEDS: MELATONIN 3 MG TABLET PO PRN (19:49)
[2019-09-08] MEDS: DONEPEZIL HCL 10 MG TABLET PO SCH (19:49)
--- NOTE | 2019-09-08 20:50 | PDOC ---
Exam Note: Danny Note: Please also refer to the separate dictated note~for this date of service dictated separately.~Patient seen individually. Discussed the patient with Nursing staff reviewed the chart.~Reviewed interim history and current functioning. Reviewed vital signs,~Labs/ Radiology~and current medications noted below. Continue current treatment with the changes noted in the dictated addendum note Assessment: Vital Signs/I&O: Vital Signs Date Time Temp Pulse Resp B/P (MAP) Pulse Ox O2 Delivery O2 Flow Rate FiO2 09/08/19 16:06 97.2 60 20 149/58 (88) 96 Room Air I & O 09/07/19 09/07/19 09/08/19 15:00 23:00 07:00 Intake Total 1430 ml 600 ml 240 ml Balance 1430 ml 600 ml 240 ml Current Medications: I have reviewed the current psychotropics carefully including drug interactions. Risk benefit ratio favors no change other than as noted in my dictated progress note. Diagnosis: Problems: (1) Aggressive behavior (2) Anxiety disorder (3) Mild cognitive impairment (4) Schizoaffective disorder, chronic condition with acute exacerbation (5) Impulse control disorder ELI RAMIREZ MD Sep 08, 2019 20:50
[2019-09-09] MEDS: LEVOTHYROXINE 50 MCG TABLET PO SCH (05:34)
[2019-09-09 05:51] VITALS: BP 130/72
[2019-09-09] MEDS: POLYVINYL ALCOHOL 1.4% OPHTH SOLUTION 15ML BOTTLE. OU SCH ×2 (08:01→19:59)
[2019-09-09] MEDS: ASPIRIN 81 MG TAB.CHEW PO SCH (08:01)
[2019-09-09] MEDS: LACTOBACILLUS RHAMNOSUS GG 1 CAPSULE. PO SCH ×2 (08:02→19:52)
[2019-09-09] MEDS: levETIRAcetam 500 MG TABLET PO SCH ×2 (08:02→19:53)
[2019-09-09] MEDS: OMEGA-3 FATTY ACIDS/FISH OIL 1,000 MG CAPSULE. PO SCH (08:02)
[2019-09-09 08:03] LABS: BASO # 0.1 x10^3/uL (0.0-0.2); BASO % 1 % (0-3); EOS # 0.3 x10^3/uL (0.0-0.7); EOS % 3 % (0-3); HEMATOCRIT 40.4 % (36.0-47.0); HEMOGLOBIN 13.3 g/dL (12.0-15.5); LYMPH # 4.4 x10^3/uL (1.0-4.8); LYMPH % 46 % (24-48); MEAN CORPUSCULAR HEMOGLOBIN 31 pg (25-35); MEAN CORPUSCULAR HGB CONC 33 g/dL (31-37); MEAN CORPUSCULAR VOLUME 93 fL (79-100); MONO # 0.9 x10^3/uL (0.0-1.1); MONO % 9 % (0-9); NEUT # 3.9 x10^3uL (1.8-7.7); NEUT % 41 % (31-73); PLATELET COUNT 226 x10^3/uL (140-400); RED BLOOD COUNT 4.35 x10^6/uL (3.50-5.40); RED CELL DISTRIBUTION WIDTH 13.9 % (11.5-14.5); WHITE BLOOD COUNT 9.5 x10^3/uL (4.0-11.0)
[2019-09-09] MEDS: LACOSAMIDE 50 MG TABLET PO SCH ×2 (08:03→19:52)
[2019-09-09] MEDS: amLODIPine BESYLATE 5 MG TABLET PO SCH (08:03)
[2019-09-09] MEDS: CEFDINIR 300 MG CAPSULE PO SCH ×2 (08:03→19:52)
[2019-09-09] MEDS: CETIRIZINE HCL 10 MG TABLET PO SCH (08:04)
[2019-09-09] MEDS: SERTRALINE 50 MG TABLET. PO SCH (08:04)
[2019-09-09] MEDS: CHOLECALCIFEROL (VITAMIN D3) 50,000 UNIT CAPSULE PO SCH (08:09)
[2019-09-09] MEDS: clonazePAM 0.5 MG TABLET PO SCH (08:09)
[2019-09-09 08:14] LABS: ALBUMIN 3.2 g/dL (3.4-5.0); ALBUMIN/GLOBULIN RATIO 0.8 (1.0-1.7); CALCIUM 9.1 mg/dL (8.5-10.1); CREATININE 0.9 mg/dL (0.6-1.0); GFR 61.9; POTASSIUM 4.4 mmol/L (3.5-5.1); TOTAL BILIRUBIN 0.2 mg/dL (0.2-1.0); TOTAL PROTEIN 7.3 g/dL (6.4-8.2)
[2019-09-09 15:20] VITALS: BP 142/72
[2019-09-09] MEDS: IBUPROFEN 400 MG TABLET. PO PRN (19:52)
[2019-09-09] MEDS: MELATONIN 3 MG TABLET PO PRN (19:53)
[2019-09-09] MEDS: QUEtiapine 50 MG TABLET. PO SCH (19:53)
[2019-09-09] MEDS: ATORVASTATIN CALCIUM 10 MG TABLET. PO SCH (19:53)
[2019-09-09] MEDS: QUEtiapine 100 MG TABLET. PO SCH (19:53)
[2019-09-09] MEDS: DONEPEZIL HCL 10 MG TABLET PO SCH (19:53)
--- NOTE | 2019-09-09 20:47 | PDOC ---
Exam Note: Danny Note: Please also refer to the separate dictated note~for this date of service dictated separately.~Patient seen individually. Discussed the patient with Nursing staff reviewed the chart.~Reviewed interim history and current functioning. Reviewed vital signs,~Labs/ Radiology~and current medications noted below. Continue current treatment with the changes noted in the dictated addendum note Assessment: Vital Signs/I&O: Vital Signs Date Time Temp Pulse Resp B/P (MAP) Pulse Ox O2 Delivery O2 Flow Rate FiO2 09/09/19 15:20 97.4 60 18 142/72 (95) 94 09/09/19 05:51 Room Air I & O 09/08/19 09/08/19 09/09/19 15:00 23:00 07:00 Intake Total 720 ml 480 ml Balance 720 ml 480 ml Labs: Laboratory Tests Test 09/09/19 07:54 White Blood Count 9.5 x10^3/uL (4.0-11.0) Red Blood Count 4.35 x10^6/uL (3.50-5.40) Hemoglobin 13.3 g/dL (12.0-15.5) Hematocrit 40.4 % (36.0-47.0) Mean Corpuscular Volume 93 fL (79-100) Mean Corpuscular Hemoglobin 31 pg (25-35) Mean Corpuscular Hemoglobin Concent 33 g/dL (31-37) Red Cell Distribution Width 13.9 % (11.5-14.5) Platelet Count 226 x10^3/uL (140-400) Neutrophils (%) (Auto) 41 % (31-73) Lymphocytes (%) (Auto) 46 % (24-48) Monocytes (%) (Auto) 9 % (0-9) Eosinophils (%) (Auto) 3 % (0-3) Basophils (%) (Auto) 1 % (0-3) Neutrophils # (Auto) 3.9 x10^3uL (1.8-7.7) Lymphocytes # (Auto) 4.4 x10^3/uL (1.0-4.8) Monocytes # (Auto) 0.9 x10^3/uL (0.0-1.1) Eosinophils # (Auto) 0.3 x10^3/uL (0.0-0.7) Basophils # (Auto) 0.1 x10^3/uL (0.0-0.2) Sodium Level 144 mmol/L (136-145) Potassium Level 4.4 mmol/L (3.5-5.1) Chloride Level 108 mmol/L (98-107) H Carbon Dioxide Level 24 mmol/L (21-32) Anion Gap 12 (6-14) Blood Urea Nitrogen 24 mg/dL (7-20) H Creatinine 0.9 mg/dL (0.6-1.0) Estimated GFR (Cockcroft-Gault) 61.9 BUN/Creatinine Ratio 27 (6-20) H Glucose Level 92 mg/dL (70-99) Calcium Level 9.1 mg/dL (8.5-10.1) Total Bilirubin 0.2 mg/dL (0.2-1.0) Aspartate Amino Transferase (AST) 16 U/L (15-37) Alanine Aminotransferase (ALT) 21 U/L (14-59) Alkaline Phosphatase 85 U/L (46-116) Total Protein 7.3 g/dL (6.4-8.2) Albumin 3.2 g/dL (3.4-5.0) L Albumin/Globulin Ratio 0.8 (1.0-1.7) L Current Medications: I have reviewed the current psychotropics carefully including drug interactions. Risk benefit ratio favors no change other than as noted in my dictated progress note. Diagnosis: Problems: (1) Aggressive behavior (2) Anxiety disorder (3) Mild cognitive impairment (4) Schizoaffective disorder, chronic condition with acute exacerbation (5) Impulse control disorder ELI RAMIREZ MD Sep 09, 2019 20:46
[2019-09-10] MEDS: LEVOTHYROXINE 50 MCG TABLET PO SCH (04:45)
[2019-09-10] MEDS: IBUPROFEN 400 MG TABLET. PO PRN ×3 (04:45→19:31)
[2019-09-10 05:36] VITALS: BP 123/73
[2019-09-10] MEDS: ASPIRIN 81 MG TAB.CHEW PO SCH (08:15)
[2019-09-10] MEDS: POLYVINYL ALCOHOL 1.4% OPHTH SOLUTION 15ML BOTTLE. OU SCH ×2 (08:15→19:29)
[2019-09-10] MEDS: LACTOBACILLUS RHAMNOSUS GG 1 CAPSULE. PO SCH ×2 (08:16→19:31)
[2019-09-10] MEDS: OMEGA-3 FATTY ACIDS/FISH OIL 1,000 MG CAPSULE. PO SCH (08:16)
[2019-09-10] MEDS: levETIRAcetam 500 MG TABLET PO SCH ×2 (08:16→19:31)
[2019-09-10] MEDS: clonazePAM 0.5 MG TABLET PO SCH (08:16)
[2019-09-10] MEDS: amLODIPine BESYLATE 5 MG TABLET PO SCH (08:17)
[2019-09-10] MEDS: CEFDINIR 300 MG CAPSULE PO SCH ×2 (08:18→19:30)
[2019-09-10] MEDS: LACOSAMIDE 50 MG TABLET PO SCH ×2 (08:18→19:32)
[2019-09-10] MEDS: CETIRIZINE HCL 10 MG TABLET PO SCH (08:19)
[2019-09-10] MEDS: SERTRALINE 50 MG TABLET. PO SCH (08:19)
[2019-09-10 15:24] VITALS: BP 167/77
[2019-09-10 16:02] LABS: C REACTIVE PROTEIN 3.9 mg/L (0-3.3); URIC ACID 5.2 mg/dL (2.6-6.0)
--- NOTE | 2019-09-10 17:47 | RAD ---
Exam: Right hand 3 views. Right wrist 3 views. INDICATION: Pain no trauma TECHNIQUE: Frontal, lateral and oblique views of the right hand and right wrist Comparisons: None FINDINGS: Hand: Bone mineralization is normal. No acute or healed fractures. Soft tissues are unremarkable. Joint spaces are well-maintained. Wrist: Bone mineralization is normal. No acute or healed fractures. Soft tissues are unremarkable. Joint spaces are well-maintained. IMPRESSION: 1. No acute osseous abnormality of the right hand. 2. No acute osseous abnormality of the right wrist. Electronically signed by: Glenda Adkins MD (09/10/2019 5:44 PM) [facility]
[2019-09-10] MEDS: ATORVASTATIN CALCIUM 10 MG TABLET. PO SCH (19:30)
[2019-09-10] MEDS: MELATONIN 3 MG TABLET PO PRN (19:30)
[2019-09-10] MEDS: QUEtiapine 100 MG TABLET. PO SCH (19:31)
[2019-09-10] MEDS: DONEPEZIL HCL 10 MG TABLET PO SCH (19:32)
[2019-09-10] MEDS: QUEtiapine 50 MG TABLET. PO SCH (19:34)
--- NOTE | 2019-09-10 20:50 | PDOC ---
Exam Note: Danny Note: Please also refer to the separate dictated note~for this date of service dictated separately.~Patient seen individually. Discussed the patient with Nursing staff reviewed the chart.~Reviewed interim history and current functioning. Reviewed vital signs,~Labs/ Radiology~and current medications noted below. Continue current treatment with the changes noted in the dictated addendum note Assessment: Vital Signs/I&O: Vital Signs Date Time Temp Pulse Resp B/P (MAP) Pulse Ox O2 Delivery O2 Flow Rate FiO2 09/10/19 15:24 98.0 61 20 167/77 (107) 97 09/09/19 05:51 Room Air I & O 09/09/19 09/09/19 09/10/19 15:00 23:00 07:00 Intake Total 600 ml 480 ml Balance 600 ml 480 ml Labs: Laboratory Tests Test 09/10/19 15:30 Erythrocyte Sedimentation Rate 45 (0-25) H Uric Acid 5.2 mg/dL (2.6-6.0) C-Reactive Protein 3.9 mg/L (0-3.3) H Current Medications: I have reviewed the current psychotropics carefully including drug interactions. Risk benefit ratio favors no change other than as noted in my dictated progress note. Diagnosis: Problems: (1) Aggressive behavior (2) Anxiety disorder (3) Mild cognitive impairment (4) Schizoaffective disorder, chronic condition with acute exacerbation (5) Impulse control disorder ELI RAMIREZ MD Sep 10, 2019 20:50
--- NOTE | 2019-09-10 23:11 | PN ---
DATE: 09/09/2019 PSYCHIATRIC PROGRESS NOTE. This late entry of 09/09/2019 covers the elements not covered in my initial note. SUBJECTIVE: I met with the patient in the evening of 09/09/2019. The patient slept 7-1/2 hours previous night. She has been fairly cooperative on the unit, less delusional about her tactile hallucinations. REVIEW OF SYSTEMS: Ambulation impaired, in wheelchair. No CV, , pulmonary, eye system symptoms on review. MENTAL STATUS EXAM: Reasonably oriented. Speech is coherent, abstraction fair, computation impaired, language function intact, attention span short. Mood and affect, less anxious, less labile. LABORATORY DATA: Reviewed. IMPRESSION: Unchanged from initial note. PLAN: No change from initial note. ELI RAMIREZ MD DR: LEIDY/stephenie JOB#: [id number] / [id number]
--- NOTE | 2019-09-10 23:34 | PN ---
DATE: 09/08/2019 PSYCHIATRIC PROGRESS NOTE This late entry, 09/08, covers elements not covered in my initial note. SUBJECTIVE: I met with the patient evening of 09/08. Per BLANCA Davis, the patient slept 7-3/4 hours previous night. She has been less anxious, restless, less delusional about things being painted on her skin. REVIEW OF SYSTEMS: Ambulation impaired, in wheelchair. No CV, , pulmonary, eye system symptoms on review. MENTAL STATUS EXAMINATION: Oriented to herself and situation. Speech is coherent, abstraction fair, computation impaired, language function intact. Mood and affect is improved. LABORATORY DATA: Reviewed. IMPRESSION: Unchanged from initial note. PLAN: No change from initial note. MAN Gil RAMIREZ MD DR: LEIDY/stephenie JOB#: [id number] / [id number]
[2019-09-11] MEDS: LEVOTHYROXINE 50 MCG TABLET PO SCH (05:37)
[2019-09-11] MEDS: ALENDRONATE SODIUM 35 MG TABLET PO SCH (05:38)
[2019-09-11 05:55] VITALS: BP 123/68
[2019-09-11] MEDS: POLYVINYL ALCOHOL 1.4% OPHTH SOLUTION 15ML BOTTLE. OU SCH ×2 (08:09→19:57)
[2019-09-11] MEDS: levETIRAcetam 500 MG TABLET PO SCH ×2 (08:10→19:49)
[2019-09-11] MEDS: CEFDINIR 300 MG CAPSULE PO SCH ×2 (08:10→19:48)
[2019-09-11] MEDS: ASPIRIN 81 MG TAB.CHEW PO SCH (08:10)
[2019-09-11] MEDS: LACTOBACILLUS RHAMNOSUS GG 1 CAPSULE. PO SCH ×2 (08:10→19:48)
[2019-09-11] MEDS: OMEGA-3 FATTY ACIDS/FISH OIL 1,000 MG CAPSULE. PO SCH (08:10)
[2019-09-11] MEDS: clonazePAM 0.5 MG TABLET PO SCH (08:10)
[2019-09-11] MEDS: amLODIPine BESYLATE 5 MG TABLET PO SCH (08:10)
[2019-09-11] MEDS: LACOSAMIDE 50 MG TABLET PO SCH ×2 (08:11→19:48)
[2019-09-11] MEDS: CETIRIZINE HCL 10 MG TABLET PO SCH (08:11)
[2019-09-11] MEDS: SERTRALINE 50 MG TABLET. PO SCH (08:11)
[2019-09-11 15:50] VITALS: BP 165/77
[2019-09-11] MEDS: QUEtiapine 100 MG TABLET. PO SCH (19:49)
[2019-09-11] MEDS: DONEPEZIL HCL 10 MG TABLET PO SCH (19:49)
[2019-09-11] MEDS: ATORVASTATIN CALCIUM 10 MG TABLET. PO SCH (19:49)
[2019-09-11] MEDS: QUEtiapine 50 MG TABLET. PO SCH (19:49)
[2019-09-11] MEDS: MELATONIN 3 MG TABLET PO PRN (19:53)
--- NOTE | 2019-09-11 20:45 | PDOC ---
Exam Note: Danyn Note: Please also refer to the separate dictated note~for this date of service dictated separately.~Patient seen individually. Discussed the patient with Nursing staff reviewed the chart.~Reviewed interim history and current functioning. Reviewed vital signs,~Labs/ Radiology~and current medications noted below. Continue current treatment with the changes noted in the dictated addendum note Assessment: Vital Signs/I&O: Vital Signs Date Time Temp Pulse Resp B/P (MAP) Pulse Ox O2 Delivery O2 Flow Rate FiO2 09/11/19 15:50 97.4 56 16 165/77 (106) 94 09/09/19 05:51 Room Air I & O 09/10/19 09/10/19 09/11/19 15:00 23:00 07:00 Intake Total 840 ml 460 ml 100 ml Balance 840 ml 460 ml 100 ml Current Medications: I have reviewed the current psychotropics carefully including drug interactions. Risk benefit ratio favors no change other than as noted in my dictated progress note. Diagnosis: Problems: (1) Aggressive behavior (2) Anxiety disorder (3) Mild cognitive impairment (4) Schizoaffective disorder, chronic condition with acute exacerbation (5) Impulse control disorder ELI RAMIREZ MD Sep 11, 2019 20:45
--- NOTE | 2019-09-11 23:26 | PN ---
DATE: 09/10/2019 PSYCHIATRIC PROGRESS NOTE This late entry 09/10/2019 covers elements not covered in my initial note. SUBJECTIVE: I met with the patient in the evening. The patient slept 8-3/4 hours previous night per Karely. She has had a good day, has a swollen right hand. Labs and x-ray were unremarkable. Reportedly, she scraped her left third toe. REVIEW OF SYSTEMS: Ambulation impaired. No CV, , PULMONARY, EYE system symptoms on review. MENTAL STATUS EXAM: Reasonably oriented. Speech is coherent, abstraction fair, computation impaired, language function intact, attention span short. Mood and affect was improved, tactile, hallucinations are improved. LABORATORY DATA: Reviewed. IMPRESSION: Schizoaffective disorder, bipolar type, mixed with psychotic features, seizure disorder. Rest unchanged. PLAN: Continue current psychotropics. May need to increase Zoloft in due course. Maintain Seroquel, Aricept along with Klonopin p.r.n. and melatonin. ELI RAMIREZ MD DR: LEIDY/stephenie JOB#: [id number] / [id number]
[2019-09-12] MEDS: LEVOTHYROXINE 50 MCG TABLET PO SCH (05:15)
[2019-09-12 06:05] VITALS: BP 126/73
[2019-09-12] MEDS: OMEGA-3 FATTY ACIDS/FISH OIL 1,000 MG CAPSULE. PO SCH (08:42)
[2019-09-12] MEDS: POLYVINYL ALCOHOL 1.4% OPHTH SOLUTION 15ML BOTTLE. OU SCH ×2 (08:42→20:53)
[2019-09-12] MEDS: LACOSAMIDE 50 MG TABLET PO SCH ×2 (08:42→20:53)
[2019-09-12] MEDS: SERTRALINE 100 MG TABLET. PO SCH (08:42)
[2019-09-12] MEDS: levETIRAcetam 500 MG TABLET PO SCH ×2 (08:42→20:54)
[2019-09-12] MEDS: ASPIRIN 81 MG TAB.CHEW PO SCH (08:42)
[2019-09-12] MEDS: CETIRIZINE HCL 10 MG TABLET PO SCH (08:42)
[2019-09-12] MEDS: amLODIPine BESYLATE 5 MG TABLET PO SCH (08:43)
[2019-09-12] MEDS: clonazePAM 0.5 MG TABLET PO SCH (08:43)
[2019-09-12] MEDS: LACTOBACILLUS RHAMNOSUS GG 1 CAPSULE. PO SCH ×2 (08:43→20:53)
[2019-09-12] MEDS: ACETAMINOPHEN 325 MG TABLET PO PRN (08:47)
[2019-09-12 16:11] VITALS: BP 145/74
--- NOTE | 2019-09-12 20:51 | PDOC ---
Exam Note: Danny Note: Please also refer to the separate dictated note~for this date of service dictated separately.~Patient seen individually. Discussed the patient with Nursing staff reviewed the chart.~Reviewed interim history and current functioning. Reviewed vital signs,~Labs/ Radiology~and current medications noted below. Continue current treatment with the changes noted in the dictated addendum note Assessment: Vital Signs/I&O: Vital Signs Date Time Temp Pulse Resp B/P (MAP) Pulse Ox O2 Delivery O2 Flow Rate FiO2 09/12/19 16:11 98.4 60 16 145/74 (97) 97 Room Air I & O 09/11/19 09/11/19 09/12/19 15:00 23:00 07:00 Intake Total 960 ml 480 ml Balance 960 ml 480 ml Current Medications: Meds: Current Medications Medications (Trade) Dose Ordered Sig/Disha Route PRN Reason Start Time Stop Time Status Last Admin Dose Admin Sertraline HCl (Zoloft) 100 mg DAILY PO 09/12/19 09:00 09/12/19 08:42 I have reviewed the current psychotropics carefully including drug interactions. Risk benefit ratio favors no change other than as noted in my dictated progress note. Diagnosis: Problems: (1) Aggressive behavior (2) Anxiety disorder (3) Mild cognitive impairment (4) Schizoaffective disorder, chronic condition with acute exacerbation (5) Impulse control disorder ELI RAMIREZ MD Sep 12, 2019 20:51
[2019-09-12] MEDS: DONEPEZIL HCL 10 MG TABLET PO SCH (20:54)
[2019-09-12] MEDS: QUEtiapine 100 MG TABLET. PO SCH (20:54)
[2019-09-12] MEDS: QUEtiapine 25 MG TABLET. PO SCH (20:54)
[2019-09-12] MEDS: MELATONIN 3 MG TABLET PO PRN (20:54)
[2019-09-12] MEDS: ATORVASTATIN CALCIUM 10 MG TABLET. PO SCH (20:54)
--- NOTE | 2019-09-13 01:58 | PN ---
DATE: 09/11/2019 PSYCHIATRIC PROGRESS NOTE This late entry 09/11/2019 covers elements not covered in my initial note. SUBJECTIVE: I met with the patient evening of 09/11/2019. Per nursing report, the patient slept 8-1/4 hours previous night per Ms. ____. She states she has had some recurrence of tactile hallucinations, feeling there are things on her arms and legs when there is nothing there. She urinated in bed in the morning, was quite agitated in the morning and described by nursing staff as a "rough morning." She was cursing at staff. REVIEW OF SYSTEMS: Ambulation impaired, in wheelchair. No CV, , pulmonary, eye system symptoms on review. Tactile hallucinations as noted above. MENTAL STATUS EXAM: Reasonably oriented. Speech has some latency, coherent. Abstraction fair, computation impaired, language function intact, attention span short. Mood and affect remains intermittently labile. LABORATORY DATA: Reviewed. IMPRESSION: Schizoaffective disorder, bipolar type, mixed with psychotic features; psychotic disorder, unspecified; mild cognitive impairment. Rest unchanged. PLAN: Increase Seroquel from 150 mg at bedtime to 175 mg at bedtime, Zoloft from 75 mg a day to 100 mg a day. The patient remains on Aricept 10 mg a day, Keppra and Vimpat for her seizures, Klonopin 0.5 mg daily plus p.r.n., melatonin at bedtime. Rest unchanged for now. ELI RAMIREZ MD DR: LEIDY/stephenie JOB#: [id number] / [id number]
[2019-09-13 04:57] VITALS: BP 134/72
[2019-09-13] MEDS: LEVOTHYROXINE 50 MCG TABLET PO SCH (05:59)
[2019-09-13] MEDS: ASPIRIN 81 MG TAB.CHEW PO SCH (08:56)
[2019-09-13] MEDS: OMEGA-3 FATTY ACIDS/FISH OIL 1,000 MG CAPSULE. PO SCH (08:56)
[2019-09-13] MEDS: SERTRALINE 100 MG TABLET. PO SCH (08:56)
[2019-09-13] MEDS: POLYVINYL ALCOHOL 1.4% OPHTH SOLUTION 15ML BOTTLE. OU SCH ×2 (08:56→20:57)
[2019-09-13] MEDS: CETIRIZINE HCL 10 MG TABLET PO SCH (08:56)
[2019-09-13] MEDS: levETIRAcetam 500 MG TABLET PO SCH ×2 (08:56→20:56)
[2019-09-13] MEDS: clonazePAM 0.5 MG TABLET PO SCH (08:56)
[2019-09-13] MEDS: LACTOBACILLUS RHAMNOSUS GG 1 CAPSULE. PO SCH ×2 (08:56→20:57)
[2019-09-13] MEDS: LACOSAMIDE 50 MG TABLET PO SCH ×2 (08:56→20:56)
[2019-09-13] MEDS: amLODIPine BESYLATE 5 MG TABLET PO SCH (08:57)
[2019-09-13 15:49] VITALS: BP 155/84
--- NOTE | 2019-09-13 20:47 | PDOC ---
Exam Note: Danny Note: Please also refer to the separate dictated note~for this date of service dictated separately.~Patient seen individually. Discussed the patient with Nursing staff reviewed the chart.~Reviewed interim history and current functioning. Reviewed vital signs,~Labs/ Radiology~and current medications noted below. Continue current treatment with the changes noted in the dictated addendum note Assessment: Vital Signs/I&O: Vital Signs Date Time Temp Pulse Resp B/P (MAP) Pulse Ox O2 Delivery O2 Flow Rate FiO2 09/13/19 15:49 98.6 57 17 155/84 (107) 98 09/13/19 04:57 Room Air I & O 09/12/19 09/12/19 09/13/19 14:59 22:59 06:59 Intake Total 1080 ml 480 ml Balance 1080 ml 480 ml Current Medications: Meds: Current Medications Medications (Trade) Dose Ordered Sig/Disha Route PRN Reason Start Time Stop Time Status Last Admin Dose Admin Quetiapine Fumarate (SEROquel) 75 mg QHS PO 09/12/19 21:00 09/12/19 20:54 I have reviewed the current psychotropics carefully including drug interactions. Risk benefit ratio favors no change other than as noted in my dictated progress note. Diagnosis: Problems: (1) Aggressive behavior (2) Anxiety disorder (3) Mild cognitive impairment (4) Schizoaffective disorder, chronic condition with acute exacerbation (5) Impulse control disorder ELI RAMIREZ MD Sep 13, 2019 20:47
[2019-09-13] MEDS: QUEtiapine 25 MG TABLET. PO SCH (20:56)
[2019-09-13] MEDS: QUEtiapine 100 MG TABLET. PO SCH (20:56)
[2019-09-13] MEDS: MELATONIN 3 MG TABLET PO PRN (20:56)
[2019-09-13] MEDS: ATORVASTATIN CALCIUM 10 MG TABLET. PO SCH (20:57)
[2019-09-13] MEDS: DONEPEZIL HCL 10 MG TABLET PO SCH (20:57)
--- NOTE | 2019-09-13 23:00 | PN ---
DATE: 09/13/2019 PSYCHIATRIC PROGRESS NOTE This late entry 09/12/2019 covers elements not covered in my initial note. SUBJECTIVE: I met with the patient in the evening. Per BLANCA Sanchez, the patient slept 8 hours previous night. She has been interactive, more compliant with medications, but when I met with her, she said she was still having some tactile hallucinations, feeling there were things on her body less so than before. REVIEW OF SYSTEMS: Ambulation impaired, in wheelchair. No CV, , pulmonary, eye system symptoms on review. MENTAL STATUS EXAM: Reasonably oriented. Speech has some latency, coherent. Abstraction fair, computation impaired, language function intact. Mood and affect somewhat withdrawn. LABORATORY DATA: Reviewed. IMPRESSION: Schizoaffective disorder, bipolar type, mixed with psychotic features. Rest unchanged. PLAN: No change from initial note. MAN Gil RAMIREZ MD DR: LEIDY/stephenie JOB#: [id number] / [id number]
[2019-09-14] MEDS: LEVOTHYROXINE 50 MCG TABLET PO SCH (06:02)
[2019-09-14 06:21] VITALS: BP 118/70
[2019-09-14] MEDS: SERTRALINE 100 MG TABLET. PO SCH (08:54)
[2019-09-14] MEDS: LACTOBACILLUS RHAMNOSUS GG 1 CAPSULE. PO SCH ×2 (08:54→19:43)
[2019-09-14] MEDS: levETIRAcetam 500 MG TABLET PO SCH ×2 (08:54→19:43)
[2019-09-14] MEDS: ASPIRIN 81 MG TAB.CHEW PO SCH (08:54)
[2019-09-14] MEDS: POLYVINYL ALCOHOL 1.4% OPHTH SOLUTION 15ML BOTTLE. OU SCH ×2 (08:54→19:44)
[2019-09-14] MEDS: OMEGA-3 FATTY ACIDS/FISH OIL 1,000 MG CAPSULE. PO SCH (08:55)
[2019-09-14] MEDS: clonazePAM 0.5 MG TABLET PO SCH (08:55)
[2019-09-14] MEDS: amLODIPine BESYLATE 5 MG TABLET PO SCH (08:55)
[2019-09-14] MEDS: CETIRIZINE HCL 10 MG TABLET PO SCH (08:55)
[2019-09-14] MEDS: LACOSAMIDE 50 MG TABLET PO SCH ×2 (08:55→19:43)
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
[2019-09-14 16:09] VITALS: BP 147/64
--- NOTE | 2019-09-14 19:36 | PN ---
DATE: 09/13/2019 PSYCHIATRIC PROGRESS NOTE This late entry 09/13/2019 covers elements not covered in my initial note. SUBJECTIVE: I met with the patient in the evening of 09/13/2019. Per BLANCA Sanchez, the patient slept 7-1/4 hours previous night. She has been calm, pleasant, cooperative, states that tactile hallucinations, feeling something on her body is better. REVIEW OF SYSTEMS: Ambulation impaired, in wheelchair. No CV, , pulmonary, eye, ENT system symptoms on review. MENTAL STATUS EXAM: Reasonably oriented. Speech is coherent, abstraction fair, computation impaired, language function intact, attention span short. Mood and affect is improved, less labile, anxious. LABORATORY DATA: Reviewed. IMPRESSION: Schizoaffective disorder, bipolar type features, in partial remission; anxiety disorder, unspecified. PLAN: Continue Seroquel 175 mg at bedtime, Zoloft 100 mg a day. Rest unchanged. Consider transition to a lower level of care in the next day or two. ELI RAMIREZ MD DR: LEIDY/stephenie JOB#: [id number] / [id number]
[2019-09-14] MEDS: QUEtiapine 100 MG TABLET. PO SCH (19:43)
[2019-09-14] MEDS: ATORVASTATIN CALCIUM 10 MG TABLET. PO SCH (19:43)
[2019-09-14] MEDS: DONEPEZIL HCL 10 MG TABLET PO SCH (19:43)
[2019-09-14] MEDS: QUEtiapine 25 MG TABLET. PO SCH (19:43)
--- NOTE | 2019-09-14 20:58 | PDOC ---
Exam Note: Danny Note: Please also refer to the separate dictated note~for this date of service dictated separately.~Patient seen individually. Discussed the patient with Nursing staff reviewed the chart.~Reviewed interim history and current functioning. Reviewed vital signs,~Labs/ Radiology~and current medications noted below. Continue current treatment with the changes noted in the dictated addendum note Assessment: Vital Signs/I&O: Vital Signs Date Time Temp Pulse Resp B/P (MAP) Pulse Ox O2 Delivery O2 Flow Rate FiO2 09/14/19 16:09 98.3 54 16 147/64 (91) 97 09/14/19 06:21 Room Air I & O 09/13/19 09/13/19 09/14/19 15:00 23:00 07:00 Intake Total 960 ml 480 ml Balance 960 ml 480 ml Current Medications: I have reviewed the current psychotropics carefully including drug interactions. Risk benefit ratio favors no change other than as noted in my dictated progress note. Diagnosis: Problems: (1) UTI (urinary tract infection) (2) Aggressive behavior (3) Anxiety disorder (4) Mild cognitive impairment (5) Schizoaffective disorder, chronic condition with acute exacerbation (6) Impulse control disorder ELI RAMIREZ MD Sep 14, 2019 20:58
[2019-09-15] MEDS ORDERED: QUET50TA PO (01:02)
[2019-09-15] MEDS ORDERED: MELA3TAB43 PO (01:19)
[2019-09-15] MEDS ORDERED: MAG30ORA2 PO (01:20)
[2019-09-15] MEDS ORDERED: MAGN400O7 PO (01:20)
[2019-09-15] MEDS ORDERED: LACT1CAP21 PO (01:21)
[2019-09-15] MEDS ORDERED: METH28OI2 TP (01:22)
[2019-09-15] MEDS: LEVOTHYROXINE 50 MCG TABLET PO SCH (05:29)
[2019-09-15 06:07] VITALS: BP 159/75
[2019-09-15 08:19] VITALS: BP 159/75
[2019-09-15] MEDS: clonazePAM 0.5 MG TABLET PO SCH (08:19)
[2019-09-15] MEDS: LACOSAMIDE 50 MG TABLET PO SCH (08:19)
[2019-09-15] MEDS: CETIRIZINE HCL 10 MG TABLET PO SCH (08:19)
[2019-09-15] MEDS: amLODIPine BESYLATE 5 MG TABLET PO SCH (08:19)
[2019-09-15] MEDS: LACTOBACILLUS RHAMNOSUS GG 1 CAPSULE. PO SCH (08:19)
[2019-09-15] MEDS: ASPIRIN 81 MG TAB.CHEW PO SCH (08:19)
[2019-09-15] MEDS: POLYVINYL ALCOHOL 1.4% OPHTH SOLUTION 15ML BOTTLE. OU SCH (08:19)
[2019-09-15] MEDS: OMEGA-3 FATTY ACIDS/FISH OIL 1,000 MG CAPSULE. PO SCH (08:20)
[2019-09-15] MEDS: levETIRAcetam 500 MG TABLET PO SCH (08:20)
[2019-09-15] MEDS: SERTRALINE 100 MG TABLET. PO SCH (08:20)
--- NOTE | 2019-09-15 20:55 | PDOC ---
Exam Note: Danny Note: Please also refer to the separate dictated note~for this date of service dictated separately.~Patient seen individually. Discussed the patient with Nursing staff reviewed the chart.~Reviewed interim history and current functioning. Reviewed vital signs,~Labs/ Radiology~and current medications noted below. Continue current treatment with the changes noted in the dictated addendum note Assessment: Vital Signs/I&O: Vital Signs Date Time Temp Pulse Resp B/P (MAP) Pulse Ox O2 Delivery O2 Flow Rate FiO2 09/15/19 08:19 76 159/75 09/15/19 06:07 97.8 16 95 09/14/19 06:21 Room Air I & O 09/14/19 09/14/19 09/15/19 15:00 23:00 07:00 Intake Total 960 ml 240 ml 240 ml Balance 960 ml 240 ml 240 ml Current Medications: I have reviewed the current psychotropics carefully including drug interactions. Risk benefit ratio favors no change other than as noted in my dictated progress note. Diagnosis: Problems: (1) Anxiety disorder (2) Mild cognitive impairment (3) Schizoaffective disorder, chronic condition with acute exacerbation (4) Impulse control disorder ELI RAMIREZ MD Sep 15, 2019 20:55
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
--- NOTE | 2019-09-15 22:22 | PN ---
DATE: 09/14/2019 PSYCHIATRIC PROGRESS NOTE This late entry 09/14/2019 covers the elements not covered in my initial note. SUBJECTIVE: I met with the patient in the evening of 09/14/2019 and staffed at a treatment team meeting with the entire team in the morning. The patient is sleeping average 7 hours. Overall, much more cooperative. Psychotic symptoms with auditory hallucinations are improved, but she still complains of some tactile hallucinations as I questioned her at length in the evening. REVIEW OF SYSTEMS: Ambulation impaired, in wheelchair. No CV, , pulmonary, eye system symptoms on review. Reliability is fair. MENTAL STATUS EXAM: Reasonably oriented. Speech is coherent, has some latency. Abstraction fair, computation impaired, language function intact. Mood and affect is less labile. LABORATORY DATA: Reviewed. IMPRESSION: Unchanged from initial note. PLAN: No change from initial note, but her Seroquel may need to be increased once she returns to the [facility] with the symptoms persist. Tentative discharge on 09/15/2019. ELI RAMIREZ MD DR: LEIDY/stephenie JOB#: [id number] / [id number]
[2019-09-23] MEDS ORDERED: CHOLECALCIFEROL (VITAMIN D3) 50,000 UNIT CAPSULE PO SCH (09:00)
== END 2019-09-15 15:09 | DRG 885 ==
LOC: ER 13:02 → GEROPSY 17:33
PROVIDERS: ADMIT Psychiatry & Neurology Psychiatry; ATTEND Psychiatry & Neurology Psychiatry
DX: F31.64 Bipolar disorder, current episode mixed, severe, with psychotic features (principal); G40.209 Localization-related (focal) (partial) symptomatic epilepsy and epileptic syndromes with complex partial seizures, not intractable, without status epilepticus; N39.0 Urinary tract infection, site not specified; K21.9 Gastro-esophageal reflux disease without esophagitis; M19.90 Unspecified osteoarthritis, unspecified site; F03.90 Unspecified dementia, unspecified severity, without behavioral disturbance, psychotic disturbance, mood disturbance, and anxiety; F41.9 Anxiety disorder, unspecified; E03.9 Hypothyroidism, unspecified; E78.5 Hyperlipidemia, unspecified; M81.0 Age-related osteoporosis without current pathological fracture; H04.129 Dry eye syndrome of unspecified lacrimal gland; I10 Essential (primary) hypertension; F63.9 Impulse disorder, unspecified; F79 Unspecified intellectual disabilities; K59.09 Other constipation; R13.10 Dysphagia, unspecified; Z91.81 History of falling; Z99.3 Dependence on wheelchair; Z87.891 Personal history of nicotine dependence; Z91.048 Other nonmedicinal substance allergy status; Z88.8 Allergy status to other drugs, medicaments and biological substances
CPT/HCPCS: 36415; 73110; 73130; 80053; 80061; 80307; 80329; 81001; 82306; 82607; 83036; 83540; 83550; 83735; 84436; 84443; 84480; 84550; 85025; 85651; 86140; 86592; 87086; 87186; 93005; G0480; 82003; 97110; 97116; 97535; 99285-25

== ENCOUNTER 2021-12-17 13:47 | Inpatient (IN) | payer MEDICARE, MEDICAID ==
[~2021-12-17] VITALS: Ht 172.7 cm; Wt 90.5 kg
--- NOTE | 2021-12-17 13:45 | NUR ---
Admission Note with Justification for Admission to [facility] Patient admitted to [facility] for protective oversight for emergency stabilization of acute psychiatric crisis. Pt admitted from: [facility] Mode of arrival: Secure Transport Accompanied By: Secure Transport Precipitating behaviors that initiated intake and admission: expresses she doesn't like "this Felicia", agitation, screaming, crying hysterically, labile, mood, expresses she hopes the staff "fucking ", depressed, anxious, name calling, threatening to punch peer Description of failure of out patient attempts at stabilization in previous setting list behavior and medication trials: increased meds, out pt psychiatry, clonazepam, remeron, seroquel, zoloft, redirection Behaviors and assessment findings upon admission: Pt very pleasant and cooperative upon admission. She is A&Ox4, states "this is my 7th day of crying. I see a commercial, I cry. I look at my roommate, I cry. I'm so tired of crying!" Pt denies pain, depression, SI & HI, though she reports that she gets angry easier and "attempts to scare people" into letting her get her way. Skin is intact. Pt expressed her excitement in coming back to our facility as she "knows all the aids here and the food is 10x better." She became upset when she learned she would have to stay on the admissions hallway for a few days before she was able to participate in group therapy and go to the dining room for meals. Pt accepted our new policies d/t COVID. Will continue to monitor. Plan: Admit for protective oversight for adjustment and stabilization of medications, behaviors and mood. Intense treatment regimen including groups, medication adjustments, therapy, consistent regimen for ADL's, self care, and sleep hygiene. Daily monitoring by Inpatient staff, Psychiatry, and Medical Physician.
[~2021-12-17 13:47] MED LIST: ACET325T21 PO; ALEN70TA71 PO; AMLO-186 PO; ASPI-630 PO; BISA5TAB4 PO; CETI10TA74 PO; CHOL500021 PO; CLON0.5T4 PO; DOCU-109 PO; DONE10TA7 PO; GUAI100L12 PO; HYDR25SU18 RC; HYPR15DR11 OU; IBUP400T18 PO; LACO150T PO; LACT1CAP21 PO; LEVE10007 PO; LEVE500T56 PO; LEVO50TA5 PO; LEVO5TAB2 PO; MAG30ORA2 PO; MAGN400O7 PO; MELA3TAB43 PO; METH28OI2 TP; OMEG1CAP50 PO; PRAV40TA2 PO; QUET100T4 PO; QUET50TA3 PO; SALI10002 MM; SERT50TA PO
[2021-12-17] MEDS ORDERED: MAG HYDROX/AL HYDROX/SIMETH 30 ML ORAL.SUSP PO PRN ×2 (14:15→16:30)
[2021-12-17] MEDS ORDERED: MAGNESIUM HYDROXIDE 2,400 MG/30 ML ORAL.SUSP. PO PRN ×2 (14:15→16:30)
[2021-12-17] MEDS ORDERED: ACETAMINOPHEN 325 MG TABLET PO PRN (14:15)
[2021-12-17] MEDS ORDERED: METHYL SALICYLATE/MENTHOL TOPICAL OINTMENT 57GM TUBE. TP PRN (14:15)
[2021-12-17 14:29] VITALS: BP 156/76
[2021-12-17] MEDS ORDERED: QUET100T4 PO (14:38)
[2021-12-17] MEDS ORDERED: LACO200T PO (14:38)
[2021-12-17] MEDS ORDERED: CHOL500021 PO (14:38)
[2021-12-17] MEDS ORDERED: MIRT-37 PO (14:38)
[2021-12-17] MEDS ORDERED: IBUP400T18 PO (14:38)
[2021-12-17] MEDS ORDERED: LOSA50TA86 PO (14:38)
[2021-12-17] MEDS ORDERED: LORA10TA3 PO (14:38)
[2021-12-17] MEDS ORDERED: METH114C3 TP (14:38)
[2021-12-17] MEDS ORDERED: LOPE2TAB27 PO (14:38)
[2021-12-17 14:59] LABS: BACTERIA,URINE 0 /HPF (0-FEW); CLARITY,URINE CLEAR; COLOR,URINE YELLOW; GLUCOSE,URINE NEG (NEG); NITRITE,URINE NEG (NEG); RBC,URINE 0 /HPF (0-2); SQUAMOUS EPITHELIAL CELL,UR FEW /LPF; UROBILINOGEN,URINE 0.2 mg/dL (0.2 mg/dL); WBC,URINE OCC /HPF (0-4)
[2021-12-17 15:48] LABS: BASO % 1 % (0-3); EOS # 0.4 x10^3/uL (0.0-0.7); EOS % 4 % (0-3); HEMATOCRIT 40.2 % (36.0-47.0); HEMOGLOBIN 13.5 g/dL (12.0-15.5); LYMPH # 3.9 x10^3/uL (1.0-4.8); LYMPH % 39 % (24-48); MEAN CORPUSCULAR HEMOGLOBIN 32 pg (25-35); MEAN CORPUSCULAR HGB CONC 34 g/dL (31-37); MEAN CORPUSCULAR VOLUME 95 fL (79-100); MONO # 0.8 x10^3/uL (0.0-1.1); MONO % 8 % (0-9); NEUT # 4.9 x10^3uL (1.8-7.7); NEUT % 49 % (31-73); PLATELET COUNT 251 x10^3/uL (140-400); RED BLOOD COUNT 4.25 x10^6/uL (3.50-5.40); RED CELL DISTRIBUTION WIDTH 13.1 % (11.5-14.5)
[2021-12-17 16:00] LABS: ALBUMIN 3.6 g/dL (3.4-5.0); ALBUMIN/GLOBULIN RATIO 0.8 (1.0-1.7); CALCIUM 9.6 mg/dL (8.5-10.1); GFR 54.5; MAGNESIUM 2.2 mg/dL (1.8-2.4); POTASSIUM 4.3 mmol/L (3.5-5.1); TOTAL BILIRUBIN 0.3 mg/dL (0.2-1.0); TOTAL PROTEIN 7.9 g/dL (6.4-8.2)
[2021-12-17] MEDS ORDERED: MENTHOL TP PRN (16:30)
[2021-12-17] MEDS ORDERED: clonazePAM 0.5 MG TABLET PO PRN (16:30)
[2021-12-17] MEDS ORDERED: CAMPHOR TP PRN (16:30)
[2021-12-17] MEDS ORDERED: BISACODYL TAB 5 MG TABLET.DR. PO PRN (16:30)
[2021-12-17] MEDS ORDERED: METHYL SALICYLATE TP PRN (16:30)
[2021-12-17] MEDS ORDERED: LOPERAMIDE 2 MG CAPSULE PO PRN (17:00)
[2021-12-17] MEDS ORDERED: MELATONIN 3 MG TABLET PO PRN (17:00)
[2021-12-17] MEDS: DONEPEZIL HCL 10 MG TABLET PO SCH (21:21)
[2021-12-17] MEDS: LACTOBACILLUS RHAMNOSUS GG 1 CAPSULE. PO SCH (21:21)
[2021-12-17] MEDS: POLYVINYL ALCOHOL/POVIDONE/PF OPHTH SOLUTION DROPERETTE. OU SCH (21:21)
[2021-12-17] MEDS: ATORVASTATIN CALCIUM 10 MG TABLET. PO SCH (21:22)
[2021-12-17] MEDS: clonazePAM 0.5 MG TABLET PO SCH (21:22)
[2021-12-17] MEDS: MIRTAZAPINE 15 MG TABLET PO SCH (21:22)
[2021-12-17] MEDS: LACOSAMIDE 50 MG TABLET PO SCH (21:24)
[2021-12-17] MEDS: QUEtiapine 100 MG TABLET. PO SCH (21:24)
[2021-12-17] MEDS: levETIRAcetam 500 MG TABLET PO SCH (21:25)
--- NOTE | 2021-12-17 21:33 | PDOC ---
Exam Note: Danny Note: Please also refer to the separate dictated note~for this date of service dictated separately.~Patient seen individually. Discussed the patient with Nursing staff reviewed the chart.~Reviewed interim history and current functioning. Reviewed vital signs,~Labs/ Radiology~and current medications noted below. Continue current treatment with the changes noted in the dictated addendum note Assessment: Vital Signs/I&O: Vital Signs Date Time Temp Pulse Resp B/P (MAP) Pulse Ox O2 Delivery O2 Flow Rate FiO2 12/17/21 14:29 97.1 60 20 156/76 (102) 95 Room Air Labs: Laboratory Tests Test 12/17/21 14:00 12/17/21 15:33 Urine Collection Type Unknown Urine Color Yellow Urine Clarity Clear Urine pH 6.0 Urine Specific [place] 1.010 Urine Protein Neg (NEG-TRACE) Urine Glucose (UA) Neg mg/dL (NEG) Urine Ketones (Stick) Neg mg/dL (NEG) Urine Blood Neg (NEG) Urine Nitrite Neg (NEG) Urine Bilirubin Neg (NEG) Urine Urobilinogen Dipstick 0.2 mg/dL (0.2 mg/dL) Urine Leukocyte Esterase Neg (NEG) Urine RBC 0 /HPF (0-2) Urine WBC Occ /HPF (0-4) Urine Squamous Epithelial Cells Few /LPF Urine Bacteria 0 /HPF (0-FEW) White Blood Count 10.0 x10^3/uL (4.0-11.0) Red Blood Count 4.25 x10^6/uL (3.50-5.40) Hemoglobin 13.5 g/dL (12.0-15.5) Hematocrit 40.2 % (36.0-47.0) Mean Corpuscular Volume 95 fL (79-100) Mean Corpuscular Hemoglobin 32 pg (25-35) Mean Corpuscular Hemoglobin Concent 34 g/dL (31-37) Red Cell Distribution Width 13.1 % (11.5-14.5) Platelet Count 251 x10^3/uL (140-400) Neutrophils (%) (Auto) 49 % (31-73) Lymphocytes (%) (Auto) 39 % (24-48) Monocytes (%) (Auto) 8 % (0-9) Eosinophils (%) (Auto) 4 % (0-3) H Basophils (%) (Auto) 1 % (0-3) Neutrophils # (Auto) 4.9 x10^3uL (1.8-7.7) Lymphocytes # (Auto) 3.9 x10^3/uL (1.0-4.8) Monocytes # (Auto) 0.8 x10^3/uL (0.0-1.1) Eosinophils # (Auto) 0.4 x10^3/uL (0.0-0.7) Basophils # (Auto) 0.0 x10^3/uL (0.0-0.2) D-Dimer (Samantha) 0.44 mg/L (0.00-0.50) Sodium Level 137 mmol/L (136-145) Potassium Level 4.3 mmol/L (3.5-5.1) Chloride Level 103 mmol/L (98-107) Carbon Dioxide Level 28 mmol/L (21-32) Anion Gap 6 (6-14) Blood Urea Nitrogen 25 mg/dL (7-20) H Creatinine 1.0 mg/dL (0.6-1.0) Estimated GFR (Cockcroft-Gault) 54.5 BUN/Creatinine Ratio 25 (6-20) H Glucose Level 99 mg/dL (70-99) Calcium Level 9.6 mg/dL (8.5-10.1) Magnesium Level 2.2 mg/dL (1.8-2.4) Total Bilirubin 0.3 mg/dL (0.2-1.0) Aspartate Amino Transferase (AST) 18 U/L (15-37) Alanine Aminotransferase (ALT) 28 U/L (14-59) Alkaline Phosphatase 78 U/L (46-116) Total Protein 7.9 g/dL (6.4-8.2) Albumin 3.6 g/dL (3.4-5.0) Albumin/Globulin Ratio 0.8 (1.0-1.7) L Current Medications: Meds: Current Medications Medications (Trade) Dose Ordered Sig/Disha Route PRN Reason Start Time Stop Time Status Last Admin Dose Admin Clonazepam (KlonoPIN) 0.5 mg BID PO 12/17/21 21:00 12/17/21 21:22 Donepezil HCl (Aricept) 10 mg HS PO 12/17/21 21:00 12/17/21 21:21 Levetiracetam (Keppra) 1,500 mg BID PO 12/17/21 21:00 12/17/21 21:25 Mirtazapine (Remeron) 15 mg QHS PO 12/17/21 21:00 12/17/21 21:22 Quetiapine Fumarate (SEROquel) 150 mg QHS PO 12/17/21 21:00 12/17/21 21:24 Artificial Tears (Refresh Classic) 1 drop BID OU 12/17/21 21:00 12/17/21 21:21 Lacosamide (Vimpat) 200 mg BID PO 12/17/21 21:00 12/17/21 21:24 Lactobacillus Rhamnosus (Culturelle) 1 cap BID PO 12/17/21 21:00 12/17/21 21:21 Atorvastatin Calcium (Lipitor) 10 mg HS PO 12/17/21 21:00 12/17/21 21:22 I have reviewed the current psychotropics carefully including drug interactions. Risk benefit ratio favors no change other than as noted in my dictated progress note. Diagnosis: Problems: (1) Anxiety disorder (2) Mild cognitive impairment (3) Schizoaffective disorder, chronic condition with acute exacerbation (4) Impulse control disorder ELI RAMIREZ MD Dec 17, 2021 21:32
--- NOTE | 2021-12-17 22:25 | HP ---
DATE OF SERVICE: 12/17/2021 ADMIT DATE: 12/17/2021 PSYCHIATRIC ADMISSION HISTORY/EVALUATION This note covers elements not covered in my initial note, 12/17. I met with the patient on the evening of 12/17 for this evaluation. Previously discussed with nursing staff, BLANCA Luis and prior to that with creative services coordinator, Mariluz Canales to review information from [facility] in [place], [place]. IDENTIFYING DATA: The patient is a 71-year-old female referred to us from the above long term by her primary care physician on account of an acute exacerbation of her schizoaffective disorder versus bipolar disorder with psychotic features. She has been agitated, screaming, crying hysterically, depressed, expressed that she does not like the way she is "this Felicia." She has a labile mood, was making statement that she hopes the staff "fucking ." She is depressed, anxious, name calling, threatening to punch a peer. She had failed outpatient psychiatric interventions and she had been hospitalized here once before about 2 years back. Behaviors were deemed dangerous, unmanageable at the facility resulting in this referral. CHIEF COMPLAINT: "I just can't stop crying. I am depressed." HISTORY OF PRESENT ILLNESS: The patient has a history of bipolar disorder versus schizoaffective disorder, bipolar type. She has been stable for the last 2 years since she was last inpatient here with us, but over the past several days, she has had worsening mood swings, crying, paranoid, agitated, aggressive, disruptive with sleep and appetite changes, marked insomnia, threatening behaviors as noted above. No active homicidal ideation. Cognitively, she is reasonably intact. PAST PSYCHIATRIC HISTORY: As above. MEDICAL HISTORY: GERD, dysphagia, chronic constipation, seizure disorder, hypothyroidism, hyperlipidemia, hypertension, osteoporosis. CURRENT PSYCHOTROPICS: Keppra 1500 mg b.i.d., Aricept 10 mg a day, Klonopin 0.5 mg daily, Remeron 15 mg at bedtime, Seroquel 100 mg a.m. and 150 at bedtime, lacosamide 200 mg b.i.d., Zoloft 125 mg a day. FAMILY HISTORY: Noncontributory. SOCIAL HISTORY: No history of alcohol, drug abuse, physical, sexual, elder abuse history is noted. She is not known to be a perpetrator. REACTION TO HOSPITALIZATION: The patient is accepting of this. ASSETS: Supportive living at the above long term. REVIEW OF SYSTEMS: Ambulation impaired, in wheelchair. No CV, , pulmonary, eye, ENT system symptoms on review. CODE STATUS: She is a full code. ACCU-CHEKS: None. DIET: Regular. Takes medications whole. Ambulates in wheelchair, self propels, transfer, assist 1 person. MENTAL STATUS EXAM: The patient is oriented to herself, situation. Speech is coherent, has some latency. Abstraction fair. Computation impaired. Language function intact. Attention span short. Mood and affect labile, depressed, anxious. She is quite distractible. No active suicidal or homicidal ideation. LABORATORY DATA: Reviewed. IMPRESSION: Schizoaffective disorder, bipolar type, mixed, with psychotic features versus bipolar 1 disorder, depressed, with psychotic features; anxiety disorder, unspecified; impulse control disorder, unspecified. Rest as above. PLAN: Admit to Geropsychiatry Unit at [facility]. I will see the patient daily individually from a psychiatric standpoint, medical followup, Dr. Stearns/Dr. Krishnan. Continue patient on her current psychotropics. Observe baseline. Obtain records from her last hospitalization to determine what psychotropics did best for her stabilization for the bipolar disorder. We will adjust psychotropics thereafter. ESTIMATED LENGTH OF STAY: 10-12 days. DISPOSITION PLANS: Back to long term when stable. NISA DR: Juliet TID: [id number]
[2021-12-18 01:09] LABS: THYROXINE 5.3 ug/dL (4.5-12.0)
[2021-12-18 03:10] LABS: HEMOGLOBIN A1C 6.5 % (4.8-5.6)
--- NOTE | 2021-12-18 03:27 | NUR ---
Felicia was in a w/c in the hallway when med pass and assessment were completed. She was alert, oriented x 4, denied pain. Denied SI/HI thoughts. Pleasant affect. Stated she was tired and ready for bed. Compliant in taking HS medications. While two staff assisted Felicia to the bathroom, pt's legs gave out and was lowered to the floor. Assisted back to bed without issue. Addendum: 12/18/21 at 0605 by DORY MANCERA RN Pt requested Motrin for knee pain rated 5/10. Given at 0550.
[2021-12-18] MEDS: IBUPROFEN 200 MG TABLET PO PRN ×2 (05:46→06:01)
[2021-12-18] MEDS: LEVOTHYROXINE 50 MCG TABLET PO SCH (06:11)
[2021-12-18 06:33] VITALS: BP 166/73
[2021-12-18] MEDS: CETIRIZINE HCL 10 MG TABLET PO SCH (07:53)
[2021-12-18] MEDS: LACTOBACILLUS RHAMNOSUS GG 1 CAPSULE. PO SCH ×2 (07:53→20:54)
[2021-12-18] MEDS: levETIRAcetam 500 MG TABLET PO SCH ×2 (07:53→20:54)
[2021-12-18] MEDS: ASPIRIN CHEWABLE 81 MG TABLET. PO SCH (07:53)
[2021-12-18] MEDS: IBUPROFEN 400 MG TABLET. PO SCH (07:53)
[2021-12-18] MEDS: clonazePAM 0.5 MG TABLET PO SCH ×2 (07:54→20:54)
[2021-12-18] MEDS: LACOSAMIDE 50 MG TABLET PO SCH ×2 (07:54→20:54)
[2021-12-18] MEDS: QUEtiapine 100 MG TABLET. PO SCH ×2 (07:54→20:53)
[2021-12-18] MEDS: SERTRALINE 50 MG TABLET. PO SCH (07:54)
[2021-12-18] MEDS: POLYVINYL ALCOHOL/POVIDONE/PF OPHTH SOLUTION DROPERETTE. OU SCH ×3 (07:54→20:53)
[2021-12-18] MEDS: OMEGA-3 FATTY ACIDS/FISH OIL 1,000 MG CAPSULE. PO SCH (07:55)
[2021-12-18] MEDS: LOSARTAN 50 MG TABLET. PO SCH (07:55)
[2021-12-18] MEDS: amLODIPine BESYLATE 10 MG TABLET PO SCH (07:55)
--- NOTE | 2021-12-18 09:05 | NUR ---
Pt A&Ox4, denies SI/HI/VH/AH/pain when asked. She is compliant with whole medications and is receptive to education provided. She is absent of disruptive behaviors on the unit. She presents as a good role model for her peers; encouraging others to to follow unit rules, to follow requests from staff, and she has even been observed encouraging resistant peers to be medication compliant. Pt enjoys listening to music on the tablet. Plan of care continues, will pass to next shift.
--- NOTE | 2021-12-18 10:14 | NUR ---
WEEKLY ACTIVITY THERAPY NOTE Date of Admission: 12/18/21 Date of AT Assessment: TBD Precipitating behaviors that initiated intake and admission:expresses she doesn't like "this Felicia", agitation, screaming, crying hysterically, labile, mood, expresses she hopes the staff "fucking ", depressed, anxious, name calling, threatening to punch peer Goal aimed: TBD Initial Goal: TBD Weekly progress towards goal: NA Group participation level:NA Weekly highlights: arrived on [facility] Behaviors observed: Plan: meet/assess pt Beneficial adaptations: TBD
--- NOTE | 2021-12-18 11:40 | NUR ---
ACTIVITY THERAPY ASSESSMENT completed based on notes, observation and interview. Pt was in the hallway amongst peers and staff. Pt was pleasant and social during assessment. Pt ambulates with a wheelchair at all times. SANDWICH AND DRINK CART OPERATOR oriented pt to unit and also talked about her previous stay. Pt was aware of her surroundings and structure of unit from her previous admission. Pt was able to answer orientation questions accurately and said that she was here because "I wasn't feeling like myself." Pt said she enjoys coloring(adult coloring books), helping others, socializing, and bingo. Pt talked about her facilities child care centre director and how she kept things like medicine cups and newspapers for her to use for activities. Pt did not report any stress during assessment but said to cope with stress she just cries. Pt said that she had cried for seven days straight. She also vignesh with stress by talking to others. Pt reports that she has a good support system at her facility and has people to talk to there. Pt was listening to music on the chris and had requested coloring pages earlier this morning. Pt was content with the leisure items she had. Per notes pt is compliant and cooperative with staff. Initial goal aimed to support socialization and engagement. Pt will participate in at least five Activity Therapy sessions per week.
--- NOTE | 2021-12-18 12:55 | NUR ---
Treatment team update: Pt is eating 25% of meals and slept roughly 5 hours. Pt is A/O x 4, pleasant, calm and cooperative with all assessments. Pt remembers a significant number of staff from her previous stay and asked if they will be working with her during this stay. SW and Activities will complete her assessment later today or tomorrow. ELOS for the end of next week or the early part of the week after.
[2021-12-18 15:42] VITALS: BP 141/62
[2021-12-18] MEDS: DONEPEZIL HCL 10 MG TABLET PO SCH (20:53)
[2021-12-18] MEDS: MIRTAZAPINE 15 MG TABLET PO SCH (20:54)
[2021-12-18] MEDS: ATORVASTATIN CALCIUM 10 MG TABLET. PO SCH (20:54)
[2021-12-18 20:57] LABS: CHOLESTEROL/HDL RATIO 5.2; HDLC 46 mg/dL (40-60); TRIGLYCERIDES 597 mg/dL (0-150); VLDLC 119 mg/dL (0-40)
[2021-12-18 20:58] LABS: THYROID STIM HORMONE (TSH) 1.328 uIU/mL (0.358-3.740)
--- NOTE | 2021-12-18 22:09 | PDOC ---
Exam Note: Danny Note: Please also refer to the separate dictated note~for this date of service dictated separately.~Patient seen individually. Discussed the patient with Nursing staff reviewed the chart.~Reviewed interim history and current functioning. Reviewed vital signs,~Labs/ Radiology~and current medications noted below. Continue current treatment with the changes noted in the dictated addendum note Assessment: Vital Signs/I&O: Vital Signs Date Time Temp Pulse Resp B/P (MAP) Pulse Ox O2 Delivery O2 Flow Rate FiO2 12/18/21 15:42 98.1 68 16 141/62 (88) 99 12/18/21 06:33 Room Air I & O 12/17/21 12/17/21 12/18/21 15:00 23:00 07:00 Intake Total 180 ml Balance 180 ml Current Medications: Meds: Current Medications Medications (Trade) Dose Ordered Sig/Disha Route PRN Reason Start Time Stop Time Status Last Admin Dose Admin Amlodipine Besylate (Norvasc) 10 mg DAILY PO 12/18/21 09:00 12/18/21 07:55 Aspirin (Aspirin Chewable) 81 mg DAILY PO 12/18/21 09:00 12/18/21 07:53 Ibuprofen (Motrin) 400 mg DAILY PO 12/18/21 09:00 12/18/21 07:53 Levothyroxine Sodium (Synthroid) 50 mcg DAILY06 PO 12/18/21 06:00 12/18/21 06:11 Losartan Potassium (Cozaar) 75 mg DAILY PO 12/18/21 09:00 12/18/21 07:55 Quetiapine Fumarate (SEROquel) 100 mg DAILY PO 12/18/21 09:00 12/18/21 07:54 Sertraline HCl (Zoloft) 125 mg DAILY PO 12/18/21 09:00 12/18/21 07:54 Cetirizine HCl (ZyrTEC) 10 mg DAILY PO 12/18/21 09:00 12/18/21 07:53 Fish Oil (Fish Oil) 2,000 mg DAILY PO 12/18/21 09:00 12/18/21 07:55 I have reviewed the current psychotropics carefully including drug interactions. Risk benefit ratio favors no change other than as noted in my dictated progress note. Diagnosis: Problems: (1) Schizoaffective disorder, bipolar type (2) Bipolar disorder, current episode mixed, severe, with psychotic features (3) Anxiety disorder (4) Mild cognitive impairment (5) Schizoaffective disorder, chronic condition with acute exacerbation (6) Impulse control disorder ELI RAMIREZ MD Dec 18, 2021 22:09
--- NOTE | 2021-12-18 23:42 | NUR ---
Pt sitting up in w/c in the hallway when approached. Pt A/O x4, calm, pleasant, and interactive. Pt cooperative with assessment and compliant with medications administered whole. No adverse behaviors noted thus far this shift.
--- NOTE | 2021-12-19 00:46 | CONS ---
DATE OF CONSULTATION: 12/18/2021 ATTENDING PHYSICIAN: Dr. Ramirez We are asked to see this patient for medical consultation. HISTORY OF PRESENT ILLNESS: The patient is a 71-year-old female well known to us. She was here in the inpatient unit about 2 years ago. She has underlying dementia with schizoaffective disorder. She is having some agitation, screaming and crying. No suicidal ideation, but she has talked about hoping the staff would let her . She was here for adjustment of her medication. PAST MEDICAL HISTORY: Significant for the dementia, gastroesophageal reflux disease, dysphagia, chronic constipation, history of seizure disorder, schizoaffective disorder, bipolar disorder and hypothyroidism, on replacement. ALLERGIES: SHE HAS SEVERAL ALLERGIES INCLUDING ADHESIVE TAPE, BACITRACIN, ETHER, NEOMYCIN, POLYMYXIN AND DARVOCET, MANY OF THESE MEDS ARE NO LONGER AVAILABLE. CURRENT SCHEDULED MEDICINE: Includes acetaminophen, amlodipine, Artificial Tears, aspirin, Lipitor, Dulcolax, Zyrtec, Klonopin, Aricept, fish oil, ibuprofen, Vimpat, lactobacillus, Keppra, Synthroid, loperamide, losartan, magnesium hydroxide, Remeron, Seroquel, Zoloft, and vitamin D. SOCIAL HISTORY: She is a nonsmoker, nondrinker. FAMILY HISTORY: Unobtainable. REVIEW OF SYSTEMS: Unobtainable. PHYSICAL EXAMINATION: GENERAL: When I saw her, this is a pleasant elderly female who was cooperative. VITAL SIGNS: Initial vital signs showed a blood pressure of 156/76 mmHg, pulse is 60 and regular. She was afebrile, oxygen saturation 95% on room air. HEENT: Head is without trauma. The pupils are reactive. Sclerae nonicteric. Oropharynx clear. NECK: Supple. No stridor. LUNGS: Otherwise clear to auscultation. CARDIOVASCULAR: Regular heart tones. No obvious gallops. Peripheral pulses are palpable and full. ABDOMEN: Obese, protuberant. No guarding or rebound tenderness. EXTREMITIES: Show trace edema. NEUROLOGIC: Pleasantly confused, but cooperative. SKIN: Warm and dry. PERTINENT LABORATORY STUDIES: The hemoglobin is 13.5 g/dL with a white count of 10,000. Electrolytes were within normal range. The creatinine is 1.0 mg percent. Hemoglobin A1c is 6.5. Transaminases are all normal. Urinalysis was clear. ASSESSMENT: 1. This 71-year-old female has some behavioral issues related to her dementia. 2. History of schizoaffective disorder. 3. Gastroesophageal reflux disease. 4. Hypothyroidism, on replacement. 5. Bipolar 2 disorder. RECOMMENDATIONS: 1. This patient is stable from medical standpoint. 2. I reviewed her medications and these should be continued without any changes. Thank you again for asking me to see the patient in consultation. We should gladly follow along during her inpatient stay. GEENA DR: Socrates TID: [id number] CC: ELI RAMIREZ MD
[2021-12-19] MEDS: LEVOTHYROXINE 50 MCG TABLET PO SCH (05:23)
[2021-12-19 07:01] VITALS: BP 136/60
--- NOTE | 2021-12-19 08:57 | PDOC ---
Exam Note: Danny Note: This note is a late entry for 12/18/2021 covers elements not covered in my initial note. Subjective: The patient was reviewed at treatment team meeting individually in the morning on 12/18/2021 with Annmarie Chavez, Mariluz Koroma, and Melody aMn (director social service), Erna, activity therapy, and Cherelle RIOS, discussed and reviewed the chart. The patient slept 6-3/4 hours previous night. The patient is alert and oriented reasonably, somewhat pleasant at night. She has a history of seizure disorder. Discussed with Margo RIOS in the evening. I met with her in the hallway outside her room. Review of Systems: No CV, , pulmonary, eye, ENT system symptoms on review. She is in a wheelchair. Mental Status Exam: Patient is oriented to x4. Speech coherent. Abstraction fair. Computation impaired. Language function intact. Attention span fair. Mood and affect improved, less labile. No suicidal or homicidal ideation. Laboratory Data: Reviewed. Impression: Bipolar disorder, depressed with psychotic features. Schizoaffective disorder, bipolar type, mixed with psychotic features. Anxiety disorder unspecified. Impulse control disorder unspecified. Plan: Continue current psychotropics unchanged. Reviewed drug interactions, risk-benefit ratio. I have reviewed discharge medications from the last time she was here. At that time she was stabilized on Klonopin 0.5 mg twice a day instead of current once a day and the rest medications were the same as present including Aricept 10 mg a day, Keppra 1500 mg twice a day, Remeron 15 mg at night, Seroquel 100 mg daily, 150 mg at night. Also currently she is on Zoloft 125 mg day and discharge from our service 2 years ago she was on Zoloft 50 mg a day. Additionally she is on Lacosamide 200 mg b.i.d. now which is new. We will continue to monitor her moods and behaviors. Adjust psychotropics as clinically indicated. Assessment: Vital Signs/I&O: Vital Signs Date Time Temp Pulse Resp B/P (MAP) Pulse Ox O2 Delivery O2 Flow Rate FiO2 12/19/21 07:01 97.9 61 18 136/60 (85) 92 Room Air I & O 12/18/21 12/18/21 12/19/21 15:00 23:00 07:00 Intake Total 840 ml 600 ml Balance 840 ml 600 ml Current Medications: Meds: Current Medications Medications (Trade) Dose Ordered Sig/Disha Route PRN Reason Start Time Stop Time Status Last Admin Dose Admin Amlodipine Besylate (Norvasc) 10 mg DAILY PO 12/18/21 09:00 12/18/21 07:55 Aspirin (Aspirin Chewable) 81 mg DAILY PO 12/18/21 09:00 12/18/21 07:53 Ibuprofen (Motrin) 400 mg DAILY PO 12/18/21 09:00 12/18/21 07:53 Losartan Potassium (Cozaar) 75 mg DAILY PO 12/18/21 09:00 12/18/21 07:55 Quetiapine Fumarate (SEROquel) 100 mg DAILY PO 12/18/21 09:00 12/18/21 07:54 Sertraline HCl (Zoloft) 125 mg DAILY PO 12/18/21 09:00 12/18/21 07:54 Cetirizine HCl (ZyrTEC) 10 mg DAILY PO 12/18/21 09:00 12/18/21 07:53 Fish Oil (Fish Oil) 2,000 mg DAILY PO 12/18/21 09:00 12/18/21 07:55 I have reviewed the current psychotropics carefully including drug interactions. Risk benefit ratio favors no change other than as noted in my dictated progress note. Diagnosis: Problems: (1) Schizoaffective disorder, bipolar type (2) Bipolar disorder, current episode mixed, severe, with psychotic features (3) Anxiety disorder (4) Mild cognitive impairment (5) Schizoaffective disorder, chronic condition with acute exacerbation (6) Impulse control disorder ELI RAMIREZ MD Dec 19, 2021 08:57
[2021-12-19] MEDS: levETIRAcetam 500 MG TABLET PO SCH ×2 (10:39→20:33)
[2021-12-19] MEDS: ASPIRIN CHEWABLE 81 MG TABLET. PO SCH (10:39)
[2021-12-19] MEDS: LOSARTAN 50 MG TABLET. PO SCH (10:40)
[2021-12-19] MEDS: clonazePAM 0.5 MG TABLET PO SCH ×2 (10:40→20:33)
[2021-12-19] MEDS: QUEtiapine 100 MG TABLET. PO SCH ×2 (10:40→20:34)
[2021-12-19] MEDS: SERTRALINE 50 MG TABLET. PO SCH (10:40)
[2021-12-19] MEDS: LACOSAMIDE 50 MG TABLET PO SCH ×2 (10:40→20:33)
[2021-12-19] MEDS: CETIRIZINE HCL 10 MG TABLET PO SCH (10:41)
[2021-12-19] MEDS: POLYVINYL ALCOHOL/POVIDONE/PF OPHTH SOLUTION DROPERETTE. OU SCH ×2 (10:41→20:33)
[2021-12-19] MEDS: amLODIPine BESYLATE 10 MG TABLET PO SCH (10:41)
[2021-12-19] MEDS: LACTOBACILLUS RHAMNOSUS GG 1 CAPSULE. PO SCH ×2 (10:41→20:33)
[2021-12-19] MEDS: OMEGA-3 FATTY ACIDS/FISH OIL 1,000 MG CAPSULE. PO SCH (10:41)
[2021-12-19] MEDS: IBUPROFEN 400 MG TABLET. PO SCH (10:41)
--- NOTE | 2021-12-19 12:15 | NUR ---
PSYCHOSOCIAL ASSESSMENT ADMISSION DATE: 12/17/21 CONTACT INFORMATION: DPOA/Guardian Contact Name: Aristeo Kyle Contact Address: [place], [place] Contact Phone #: ETHNIC ORIGIN: REASONS FOR ADMISSION: ADDITIONAL ADMISSION COMMENTS: According to the intake, pt expressed that she doesn't "like this Felicia", agitated, screaming, crying hysterically, labile mood, expresses she hopes the staff "fucking ", depressed, anxious, name calling and threatening to punch a peer REASON FOR ADMISSION IN PATIENT/FAMILY'S OWN WORDS: "She does this when she needs a break. She keeps it up and they will kick her out". PATIENT/FAMILY EXPECTATIONS FOR ADMISSION: Medication and behavioral management LIVING SITUATION: Patient lives with: Shelter Other living arrangements: Contact Name: [facility] Contact Address: [facility] [address] [facility]; [place] [address] Contact Phone #: Contact Fax #: FAMILY RELATIONS: Marital Status: Single # of Marriages: 0 # of Children: 0 [facility] Family Support: Cooperative Involved in DC Planning Additional Comments r/t Family: Pt has never been dn does not have any children. Pt brother does report that pt had episodes of promiscuity in high school, but other than that, no major relationships or dating history noted. SIGNIFICANT PSYCHIATRIC/MEDICAL HISTORY: Psychiatric/Treatment History: [facility], years before it became a museum. From there she spent quite a bit of time in a [facility]. Pt has hx of Dementia, MDD, Anxiety, and Schizoaffective D/O Pertinent Family History: Pt brother reports that their maternal grandmother committed suicide. He believes this caused depression in his mother, but she never dealt with hit as she was continuously "dealing with Felicia". HISTORICAL DATA: Childhood Environment: Stressful Supportive Childhood Environment Additional Comments: Pt was born and raised in [place], as a "normal child". Pt had tonsilitis with a high fever but no concerns at that time. Then roughly around the age of 7 pt had a clothing line pole fall her and hit her head. Behavioral changes were noted, as well as pt began to have seizures. Pt mother stayed at home to care for her and her father owned a clothing store. Pt brother reports that he was they were very protective of her after that incident. Both parents have passed, and her brother Aristeo has DPOA for pt. Trauma History: None Is Trauma: Additional Comments: None that pt brother is aware. Drug Abuse History last 12 months: No Comment: PERSONAL HISTORY: Vocational history: Pt has never worked due to her ongoing behaviors. service: N Pt father was a ([employer]) Confucianism background: None Sexual orientation: heterosexual Educational Level: Pt was in and out of school with her behaviors. At one point and time, pt attended the [employer] [facility] [place], [place]. Pt during school had multiple "psych stays" and pt brother is not sure if she finished. Past/Present Interests/Hobbies: Nothing. "she never had a life enough to know what she liked or didn't like". Financial support/resources: SS Disability Monthly income: Person handling finances: Pt brother cares for pt finances Do you have a history of legal problems: N Cultural considerations: None SOCIAL RELATIONSHIPS-CURRENT/PAST: Psychiatrist: Dr. Mcelroy PCP: Dr. Pierre Counselor/Therapist: None Veterans' Administration: None Support Group: None Corrections Caseworker/Silk Blocker: Mylene at [facility] Other relationships: staff at [facility] STRENGTHS & WEAKNESSES: Patient's strengths: Good family support Good verbal skills Approachable Other patient strengths: Patient's weaknesses: Impulsive Other patient weaknesses: long hx of behaviors/mental health PRELIMINARY PLAN OF TREATMENT: Preliminary plan: Dec. Anxiety/Panic Dec. Symp. Depression Improved Social Skills Medication Stabilization Dec. Outbursts Other preliminary treatment comments: DISCHARGE PLANNING: Discharge planning/disposition: Shelter Additional discharge needs identified: Potential need for behavioral plan for return to [facility] ADDITIONAL INFORMATION: Other Pertinent Data: PSA was completed by the previous admission in September 11, 2019. SW to contact pt brother to follow up on updates and also contact [facility] with updates.
[2021-12-19 17:22] VITALS: BP 142/65
[2021-12-19] MEDS: NYSTATIN TOPICAL POWDER 15GM BOTTLE. TP SCH (20:33)
[2021-12-19] MEDS: DONEPEZIL HCL 10 MG TABLET PO SCH (20:33)
[2021-12-19] MEDS: ATORVASTATIN CALCIUM 10 MG TABLET. PO SCH (20:33)
[2021-12-19] MEDS: MIRTAZAPINE 15 MG TABLET PO SCH (20:34)
--- NOTE | 2021-12-19 21:40 | PDOC ---
Exam Note: Danny Note: Please also refer to the separate dictated note~for this date of service dictated separately.~Patient seen individually. Discussed the patient with Nursing staff reviewed the chart.~Reviewed interim history and current functioning. Reviewed vital signs,~Labs/ Radiology~and current medications noted below. Continue current treatment with the changes noted in the dictated addendum note Assessment: Vital Signs/I&O: Vital Signs Date Time Temp Pulse Resp B/P (MAP) Pulse Ox O2 Delivery O2 Flow Rate FiO2 12/19/21 17:22 97.5 61 20 142/65 (90) 93 12/19/21 07:01 Room Air I & O 12/18/21 12/18/21 12/19/21 15:00 23:00 07:00 Intake Total 840 ml 600 ml Balance 840 ml 600 ml Current Medications: Meds: Current Medications Medications (Trade) Dose Ordered Sig/Disha Route PRN Reason Start Time Stop Time Status Last Admin Dose Admin Acetaminophen (Tylenol) 650 mg PRN Q6HRS PRN PO MILD PAIN / TEMP > 100.3'F 12/17/21 14:15 Cancel Multi-Ingredient Ointment (Analgesic [place]) 1 paz PRN QID PRN TP MUSCLE PAIN 12/17/21 14:15 Al Hydroxide/Mg Hydroxide (Mylanta Plus Xs) 15 ml PRN AFTMEALHC PRN PO DYSPEPSIA 12/17/21 14:15 Cancel Magnesium Hydroxide (Milk Of Magnesia) 2,400 mg PRN QHS PRN PO CONSTIPATION 12/17/21 14:15 Cancel Acetaminophen (Tylenol) 650 mg PRN Q4HRS PRN PO MILD PAIN / TEMP > 100.3'F 12/17/21 16:30 Amlodipine Besylate (Norvasc) 10 mg DAILY PO 12/18/21 09:00 12/19/21 10:41 Aspirin (Aspirin Chewable) 81 mg DAILY PO 12/18/21 09:00 12/19/21 10:39 Bisacodyl (Dulcolax Tab) 10 mg PRN DAILY PRN PO 2ND CHOICE CONSTIPATION 12/17/21 16:30 Vitamin D (Vitamin D3) 50,000 unit QMONTH PO 12/21/21 09:00 Vitamin D (Vitamin D3) 50,000 unit QMONTH PO 01/16/22 09:00 UNV Clonazepam (KlonoPIN) 0.5 mg BID PO 12/17/21 21:00 12/19/21 20:33 Clonazepam (KlonoPIN) 0.5 mg PRN DAILY PRN PO SEIZURE 12/17/21 16:30 Donepezil HCl (Aricept) 10 mg HS PO 12/17/21 21:00 12/19/21 20:33 Ibuprofen (Motrin) 200 mg PRN DAILY PRN PO INFLAMMATION/MOD PAIN 12/17/21 17:00 12/18/21 05:46 Ibuprofen (Motrin) 400 mg DAILY PO 12/18/21 09:00 12/19/21 10:41 Levetiracetam (Keppra) 1,500 mg BID PO 12/17/21 21:00 12/19/21 20:33 Levothyroxine Sodium (Synthroid) 50 mcg DAILY06 PO 12/18/21 06:00 12/19/21 05:23 Losartan Potassium (Cozaar) 75 mg DAILY PO 12/18/21 09:00 12/19/21 10:40 Al Hydroxide/Mg Hydroxide (Mylanta Plus Xs) 30 ml PRN Q6HRS PRN PO DYSPEPSIA 12/17/21 16:30 Magnesium Hydroxide (Milk Of Magnesia) 2,400 mg PRN QHS PRN PO 1ST CHOICE CONSTIPATION 12/17/21 16:30 Mirtazapine (Remeron) 15 mg QHS PO 12/17/21 21:00 12/19/21 20:34 Quetiapine Fumarate (SEROquel) 100 mg DAILY PO 12/18/21 09:00 12/19/21 10:40 Quetiapine Fumarate (SEROquel) 150 mg QHS PO 12/17/21 21:00 12/19/21 20:34 Sertraline HCl (Zoloft) 125 mg DAILY PO 12/18/21 09:00 12/19/21 10:40 Artificial Tears (Refresh Classic) 1 drop BID OU 12/17/21 21:00 12/19/21 20:33 Lacosamide (Vimpat) 200 mg BID PO 12/17/21 21:00 12/19/21 20:33 Lactobacillus Rhamnosus (Culturelle) 1 cap BID PO 12/17/21 21:00 12/19/21 20:33 Loperamide HCl (Imodium) 2 mg PRN Q6HRS PRN PO LOOSE STOOLS 12/17/21 17:00 Cetirizine HCl (ZyrTEC) 10 mg DAILY PO 12/18/21 09:00 12/19/21 10:41 Melatonin (Melatonin) 6 mg PRN QHS PRN PO INSOMNIA 12/17/21 17:00 Non-Formulary Medication (Methyl Salicylate/Menth/ Camph (Muscle Rub Ultra Str Cream)) 114 gm BID PRN TP MUSCLE PAIN 12/17/21 16:30 UNV Atorvastatin Calcium (Lipitor) 10 mg HS PO 12/17/21 21:00 12/19/21 20:33 Fish Oil (Fish Oil) 2,000 mg DAILY PO 12/18/21 09:00 12/19/21 10:41 Nystatin (Nystop) 1 paz BID TP 12/19/21 21:00 12/19/21 20:33 Current Medications Medications (Trade) Dose Ordered Sig/Disha Route PRN Reason Start Time Stop Time Status Last Admin Dose Admin Nystatin (Nystop) 1 paz BID TP 12/19/21 21:00 12/19/21 20:33 I have reviewed the current psychotropics carefully including drug interactions. Risk benefit ratio favors no change other than as noted in my dictated progress note. Diagnosis: Problems: (1) Schizoaffective disorder, bipolar type (2) Bipolar disorder, current episode mixed, severe, with psychotic features (3) Anxiety disorder (4) Mild cognitive impairment (5) Impulse control disorder ELI RAMIREZ MD Dec 19, 2021 21:40
--- NOTE | 2021-12-20 00:54 | NUR ---
Pt sitting quietly in her w/c in the hallway when approached. Pt A/O x4, calm, pleasant, and appropriate. Pt cooperative with assessment and compliant with medications administered whole. No adverse behaviors noted thus far this shift.
[2021-12-20] MEDS: LEVOTHYROXINE 50 MCG TABLET PO SCH (05:30)
[2021-12-20 06:22] VITALS: BP 102/61
--- NOTE | 2021-12-20 09:07 | PDOC ---
Exam Note: Danny Note: This note is a late entry for 12/19/2021 covers elements not covered in my initial note. Subjective: The patient was seen individually on 12/19/2021, discussed and reviewed the chart with Milana RIOS. The patient slept 7 hours previous night. The patient has been fairly cooperative, spends much time in bed but this evening as I met with her she was in the hallway, listening to country music on the iPad provided to her. Review of Systems: No CV, , pulmonary, eye, ENT system symptoms on review. Ambulation impaired, in wheelchair. Mental Status Exam: Patient is reasonably oriented. Speech coherent. Abstraction fair. Computation impaired. Language function intact. Mood and affect improved. No suicidal or homicidal ideation. Laboratory Data: Reviewed. Impression: Bipolar disorder, depressed with psychotic features. Schizoaffective disorder, bipolar type, mixed with psychotic features. Anxiety disorder unspecified. Impulse control disorder unspecified. Plan: Continue current psychotropics unchanged. Reviewed drug interactions, risk-benefit ratio. We may add BuSpar for anxiety but for now she is doing quite well. Assessment: Vital Signs/I&O: Vital Signs Date Time Temp Pulse Resp B/P (MAP) Pulse Ox O2 Delivery O2 Flow Rate FiO2 12/20/21 06:22 97.8 57 16 102/61 (75) 92 12/19/21 07:01 Room Air I & O 12/19/21 12/19/21 12/20/21 15:00 23:00 07:00 Intake Total 490 ml 600 ml Balance 490 ml 600 ml Current Medications: Meds: Current Medications Medications (Trade) Dose Ordered Sig/Disha Route PRN Reason Start Time Stop Time Status Last Admin Dose Admin Nystatin (Nystop) 1 paz BID TP 12/19/21 21:00 12/19/21 20:33 I have reviewed the current psychotropics carefully including drug interactions. Risk benefit ratio favors no change other than as noted in my dictated progress note. Diagnosis: Problems: (1) Schizoaffective disorder, bipolar type (2) Bipolar disorder, current episode mixed, severe, with psychotic features (3) Anxiety disorder (4) Mild cognitive impairment (5) Impulse control disorder ELI RAMIREZ MD Dec 20, 2021 09:07
[2021-12-20] MEDS: POLYVINYL ALCOHOL/POVIDONE/PF OPHTH SOLUTION DROPERETTE. OU SCH ×2 (09:15→20:47)
[2021-12-20] MEDS: LACTOBACILLUS RHAMNOSUS GG 1 CAPSULE. PO SCH ×2 (09:16→20:47)
[2021-12-20] MEDS: OMEGA-3 FATTY ACIDS/FISH OIL 1,000 MG CAPSULE. PO SCH (09:16)
[2021-12-20] MEDS: LACOSAMIDE 50 MG TABLET PO SCH ×2 (09:16→20:47)
[2021-12-20] MEDS: clonazePAM 0.5 MG TABLET PO SCH ×2 (09:17→20:47)
[2021-12-20] MEDS: ASPIRIN CHEWABLE 81 MG TABLET. PO SCH (09:17)
[2021-12-20] MEDS: IBUPROFEN 400 MG TABLET. PO SCH (09:18)
[2021-12-20] MEDS: CETIRIZINE HCL 10 MG TABLET PO SCH (09:18)
[2021-12-20] MEDS: QUEtiapine 100 MG TABLET. PO SCH ×2 (09:18→20:48)
[2021-12-20] MEDS: NYSTATIN TOPICAL POWDER 15GM BOTTLE. TP SCH ×2 (09:19→20:47)
[2021-12-20] MEDS: SERTRALINE 50 MG TABLET. PO SCH (09:19)
[2021-12-20] MEDS: amLODIPine BESYLATE 10 MG TABLET PO SCH (09:20)
[2021-12-20] MEDS: levETIRAcetam 500 MG TABLET PO SCH ×2 (09:21→20:47)
[2021-12-20] MEDS: LOSARTAN 50 MG TABLET. PO SCH (09:23)
--- NOTE | 2021-12-20 15:39 | TX PLAN ---
Interdisciplinary Tx Plan Admission Information Dec 17, 2021 at 13:47 Legal Status (on Admission): Voluntary DPOA/Guardian Name: Aristeo Kyle Contact Other Contact Name: [facility] Other Contact Verified Code Status: Full Code Allergies: Coded Allergies: adhesive tape (Verified Allergy, Unknown, 08/31/19) bacitracin (Verified Allergy, Unknown, 08/31/19) ether (Verified Allergy, Unknown, 08/31/19) neomycin (Verified Allergy, Unknown, 08/31/19) polymyxin B (Verified Allergy, Unknown, 08/31/19) propoxyphene (Verified Allergy, Unknown, 08/31/19) Diagnoses Primary Diagnosis: Schizoaffective D/O, Bipolar type Reasons for Admission: Agitated, Depressed, Anxiety/Panic, Poor impulse co ntrol, Other Problem in Patient's Words: "She does this when she needs a break. She keeps it up and they will kick her out". Additional Admission Comments: According to the intake, pt expressed that she doesn't "like this Felicia", agitated, screaming, crying hysterically, labile mood, expresses she hopes the staff "fucking ", depressed, anxious, name calling and threatening to punch a peer Problems Active Problems: Attention-seeking Inactive Problems: Medication compliant Pleasant Interactive Pt Strengths/Limitations Ability for [place]: Poor Cognitive Functioning/Ability: Fair Communication Skills/Ability: Fair Financial Resources: Fair Insight/Judgement: Poor Intellectual Ability: Fair Physical Health: Fair Social Skills: Poor Stability in Family: Fair Stability in School/Work: Poor Verbal Skills: Fair Discharge Criteria Discharge Criteria: No need for close observ., Adequate arrangements @DC, Improved behavior, Improved mood/thought Preliminary Discharge Plan Preliminary DC Plan: [facility] Special Precautions Fall Risk: Moderate Initial D/C Plan Pt to return to [facility] Identified Discharge Needs: Potential need for behavioral plan for return to [facility] Currently Utilized Resources Currently Utilized Resources/P: PCP, Psychiatrist Identified Problems/Hx/Goals Objectives/Short-Term Goals Short Term Goals: Dec. Anxiety/Panic, Dec. Outbursts, Dec. Symp. Depression, Improved Social Skills, Medication Stabilization Short Term Goals in Patient's: N/A Interventions/Frequency Staff Interventions/Frequency&: Psychiatrist to assess pt at least 3x per week for medication management. Social work to assess pt t least 2x per week to identify barriers to care and finalize dc plans. Nursing to assess medication effects, behavior modification and complete 15 minute checks daily. Encourage participation in group activities (if applicable) or 1:1 engagement based off Activity Dept goals. History Vocational History: Pt has never worked due to her ongoing behaviors. Education: Pt was in and out of school with her behaviors. At one point and time, pt attended the [employer] [place], [place]. Pt during school had multiple "psych stays" and pt brother is not sure if she finished. Community Follow-up PCP, Psychiatry Treatment Plan Explained Patient/Mold Breaker had this treatment plan explained to him/her as indicated by the signature below and has been given the opportunity to ask questions and make suggestions: Date: Patient/Mold Breaker Signature: Patient/Mold Breaker Decline: No (Pt brother is active in pt care.) JAMES BOLIVAR Dec 20, 2021 15:39
[2021-12-20 15:46] VITALS: BP 126/88
--- NOTE | 2021-12-20 17:31 | NUR ---
pt transferred to room 205 this shift from 226. pt was compliant with all meds and cooperative. no behaviors noted
[2021-12-20] MEDS: MIRTAZAPINE 15 MG TABLET PO SCH (20:47)
[2021-12-20] MEDS: ATORVASTATIN CALCIUM 10 MG TABLET. PO SCH (20:47)
[2021-12-20] MEDS: DONEPEZIL HCL 10 MG TABLET PO SCH (20:47)
--- NOTE | 2021-12-20 21:51 | PDOC ---
Exam Note: Danny Note: Please also refer to the separate dictated note~for this date of service dictated separately.~Patient seen individually. Discussed the patient with Nursing staff reviewed the chart.~Reviewed interim history and current functioning. Reviewed vital signs,~Labs/ Radiology~and current medications noted below. Continue current treatment with the changes noted in the dictated addendum note Assessment: Vital Signs/I&O: Vital Signs Date Time Temp Pulse Resp B/P (MAP) Pulse Ox O2 Delivery O2 Flow Rate FiO2 12/20/21 15:46 98.6 67 16 126/88 (101) 94 12/19/21 07:01 Room Air I & O 12/19/21 12/19/21 12/20/21 15:00 23:00 07:00 Intake Total 490 ml 600 ml Balance 490 ml 600 ml Labs: Laboratory Tests Test 12/20/21 15:10 POC SARS CoV-2 Antigen Negative (NEGATIVE) Current Medications: Meds: Laboratory Tests Test 12/20/21 15:10 POC SARS CoV-2 Antigen Negative Current Medications Medications (Trade) Dose Ordered Sig/Disha Route PRN Reason Start Time Stop Time Status Last Admin Dose Admin Acetaminophen (Tylenol) 650 mg PRN Q6HRS PRN PO MILD PAIN / TEMP > 100.3'F 12/17/21 14:15 Cancel Multi-Ingredient Ointment (Analgesic [place]) 1 paz PRN QID PRN TP MUSCLE PAIN 12/17/21 14:15 Al Hydroxide/Mg Hydroxide (Mylanta Plus Xs) 15 ml PRN AFTMEALHC PRN PO DYSPEPSIA 12/17/21 14:15 Cancel Magnesium Hydroxide (Milk Of Magnesia) 2,400 mg PRN QHS PRN PO CONSTIPATION 12/17/21 14:15 Cancel Acetaminophen (Tylenol) 650 mg PRN Q4HRS PRN PO MILD PAIN / TEMP > 100.3'F 12/17/21 16:30 Amlodipine Besylate (Norvasc) 10 mg DAILY PO 12/18/21 09:00 12/20/21 09:20 Aspirin (Aspirin Chewable) 81 mg DAILY PO 12/18/21 09:00 12/20/21 09:17 Bisacodyl (Dulcolax Tab) 10 mg PRN DAILY PRN PO 2ND CHOICE CONSTIPATION 12/17/21 16:30 Vitamin D (Vitamin D3) 50,000 unit QMONTH PO 12/21/21 09:00 Vitamin D (Vitamin D3) 50,000 unit QMONTH PO 01/16/22 09:00 UNV Clonazepam (KlonoPIN) 0.5 mg BID PO 12/17/21 21:00 12/20/21 20:47 Clonazepam (KlonoPIN) 0.5 mg PRN DAILY PRN PO SEIZURE 12/17/21 16:30 Donepezil HCl (Aricept) 10 mg HS PO 12/17/21 21:00 12/20/21 20:47 Ibuprofen (Motrin) 200 mg PRN DAILY PRN PO INFLAMMATION/MOD PAIN 12/17/21 17:00 12/18/21 05:46 Ibuprofen (Motrin) 400 mg DAILY PO 12/18/21 09:00 12/20/21 09:18 Levetiracetam (Keppra) 1,500 mg BID PO 12/17/21 21:00 12/20/21 20:47 Levothyroxine Sodium (Synthroid) 50 mcg DAILY06 PO 12/18/21 06:00 12/20/21 05:30 Losartan Potassium (Cozaar) 75 mg DAILY PO 12/18/21 09:00 12/20/21 09:23 Al Hydroxide/Mg Hydroxide (Mylanta Plus Xs) 30 ml PRN Q6HRS PRN PO DYSPEPSIA 12/17/21 16:30 Magnesium Hydroxide (Milk Of Magnesia) 2,400 mg PRN QHS PRN PO 1ST CHOICE CONSTIPATION 12/17/21 16:30 Mirtazapine (Remeron) 15 mg QHS PO 12/17/21 21:00 12/20/21 20:47 Quetiapine Fumarate (SEROquel) 100 mg DAILY PO 12/18/21 09:00 12/20/21 09:18 Quetiapine Fumarate (SEROquel) 150 mg QHS PO 12/17/21 21:00 12/20/21 20:48 Sertraline HCl (Zoloft) 125 mg DAILY PO 12/18/21 09:00 12/20/21 09:19 Artificial Tears (Refresh Classic) 1 drop BID OU 12/17/21 21:00 12/20/21 20:47 Lacosamide (Vimpat) 200 mg BID PO 12/17/21 21:00 12/20/21 20:47 Lactobacillus Rhamnosus (Culturelle) 1 cap BID PO 12/17/21 21:00 12/20/21 20:47 Loperamide HCl (Imodium) 2 mg PRN Q6HRS PRN PO LOOSE STOOLS 12/17/21 17:00 Cetirizine HCl (ZyrTEC) 10 mg DAILY PO 12/18/21 09:00 12/20/21 09:18 Melatonin (Melatonin) 6 mg PRN QHS PRN PO INSOMNIA 12/17/21 17:00 Non-Formulary Medication (Methyl Salicylate/Menth/ Camph (Muscle Rub Ultra Str Cream)) 114 gm BID PRN TP MUSCLE PAIN 12/17/21 16:30 UNV Atorvastatin Calcium (Lipitor) 10 mg HS PO 12/17/21 21:00 12/20/21 20:47 Fish Oil (Fish Oil) 2,000 mg DAILY PO 12/18/21 09:00 12/20/21 09:16 Nystatin (Nystop) 1 paz BID TP 12/19/21 21:00 12/20/21 20:47 I have reviewed the current psychotropics carefully including drug interactions. Risk benefit ratio favors no change other than as noted in my dictated progress note. Diagnosis: Problems: (1) Schizoaffective disorder, bipolar type (2) Bipolar disorder, current episode mixed, severe, with psychotic features (3) Anxiety disorder (4) Mild cognitive impairment (5) Impulse control disorder ELI RAMIREZ MD Dec 20, 2021 21:51
--- NOTE | 2021-12-20 22:20 | NUR ---
Pt up in hallway, sitting quietly when approached. Pt A/O x4, calm, pleasant, and appropriate. Pt cooperative with assessment and compliant with medications administered whole. No disruptive behaviors noted thus far this shift.
[2021-12-21] MEDS: IBUPROFEN 200 MG TABLET PO PRN (00:32)
[2021-12-21] MEDS: LEVOTHYROXINE 50 MCG TABLET PO SCH (05:50)
[2021-12-21 06:20] VITALS: BP 137/67
[2021-12-21] MEDS: IBUPROFEN 400 MG TABLET. PO SCH (08:42)
[2021-12-21] MEDS: levETIRAcetam 500 MG TABLET PO SCH ×2 (08:43→20:54)
[2021-12-21] MEDS: ASPIRIN CHEWABLE 81 MG TABLET. PO SCH (08:43)
[2021-12-21] MEDS: LOSARTAN 50 MG TABLET. PO SCH (08:43)
[2021-12-21] MEDS: SERTRALINE 50 MG TABLET. PO SCH (08:43)
[2021-12-21] MEDS: LACTOBACILLUS RHAMNOSUS GG 1 CAPSULE. PO SCH ×2 (08:44→20:54)
[2021-12-21] MEDS: CETIRIZINE HCL 10 MG TABLET PO SCH (08:44)
[2021-12-21] MEDS: NYSTATIN TOPICAL POWDER 15GM BOTTLE. TP SCH ×2 (08:44→20:54)
[2021-12-21] MEDS: amLODIPine BESYLATE 10 MG TABLET PO SCH (08:44)
[2021-12-21] MEDS: OMEGA-3 FATTY ACIDS/FISH OIL 1,000 MG CAPSULE. PO SCH (08:44)
[2021-12-21] MEDS: clonazePAM 0.5 MG TABLET PO SCH ×2 (08:44→20:56)
[2021-12-21] MEDS: QUEtiapine 100 MG TABLET. PO SCH ×2 (08:45→20:54)
[2021-12-21] MEDS: POLYVINYL ALCOHOL/POVIDONE/PF OPHTH SOLUTION DROPERETTE. OU SCH ×2 (08:45→20:56)
[2021-12-21] MEDS ORDERED: CHOLECALCIFEROL (VITAMIN D3) 50,000 UNIT CAPSULE PO SCH (09:00)
[2021-12-21] MEDS: LACOSAMIDE 50 MG TABLET PO SCH ×2 (09:00→20:57)
--- NOTE | 2021-12-21 10:37 | NUR ---
Nursing note PT in dinning room, verbalized no pain and was able to state her birthday and the date of today. Assessments done, medications administered per doctors orders. PT eating breakfast and verbalized no other needs. Wheelchair lucked.
[2021-12-21 15:41] VITALS: BP 133/73
[2021-12-21] MEDS: ATORVASTATIN CALCIUM 10 MG TABLET. PO SCH (20:54)
[2021-12-21] MEDS: MIRTAZAPINE 15 MG TABLET PO SCH (20:54)
[2021-12-21] MEDS: DONEPEZIL HCL 10 MG TABLET PO SCH (20:54)
--- NOTE | 2021-12-21 21:31 | PDOC ---
Exam Note: Danny Note: Please also refer to the separate dictated note~for this date of service dictated separately.~Patient seen individually. Discussed the patient with Nursing staff reviewed the chart.~Reviewed interim history and current functioning. Reviewed vital signs,~Labs/ Radiology~and current medications noted below. Continue current treatment with the changes noted in the dictated addendum note Assessment: Vital Signs/I&O: Vital Signs Date Time Temp Pulse Resp B/P (MAP) Pulse Ox O2 Delivery O2 Flow Rate FiO2 12/21/21 15:41 98.6 56 18 133/73 (93) 93 Room Air I & O 12/20/21 12/20/21 12/21/21 15:00 23:00 07:00 Intake Total 840 ml 720 ml Balance 840 ml 720 ml Current Medications: Meds: Current Medications Medications (Trade) Dose Ordered Sig/Disha Route PRN Reason Start Time Stop Time Status Last Admin Dose Admin Acetaminophen (Tylenol) 650 mg PRN Q6HRS PRN PO MILD PAIN / TEMP > 100.3'F 12/17/21 14:15 Cancel Multi-Ingredient Ointment (Analgesic [place]) 1 paz PRN QID PRN TP MUSCLE PAIN 12/17/21 14:15 Al Hydroxide/Mg Hydroxide (Mylanta Plus Xs) 15 ml PRN AFTMEALHC PRN PO DYSPEPSIA 12/17/21 14:15 Cancel Magnesium Hydroxide (Milk Of Magnesia) 2,400 mg PRN QHS PRN PO CONSTIPATION 12/17/21 14:15 Cancel Acetaminophen (Tylenol) 650 mg PRN Q4HRS PRN PO MILD PAIN / TEMP > 100.3'F 12/17/21 16:30 Amlodipine Besylate (Norvasc) 10 mg DAILY PO 12/18/21 09:00 12/21/21 08:44 Aspirin (Aspirin Chewable) 81 mg DAILY PO 12/18/21 09:00 12/21/21 08:43 Bisacodyl (Dulcolax Tab) 10 mg PRN DAILY PRN PO 2ND CHOICE CONSTIPATION 12/17/21 16:30 Vitamin D (Vitamin D3) 50,000 unit QMONTH PO 12/21/21 09:00 12/21/21 08:42 Vitamin D (Vitamin D3) 50,000 unit QMONTH PO 01/16/22 09:00 UNV Clonazepam (KlonoPIN) 0.5 mg BID PO 12/17/21 21:00 12/21/21 20:56 Clonazepam (KlonoPIN) 0.5 mg PRN DAILY PRN PO SEIZURE 12/17/21 16:30 Donepezil HCl (Aricept) 10 mg HS PO 12/17/21 21:00 12/21/21 20:54 Ibuprofen (Motrin) 200 mg PRN DAILY PRN PO INFLAMMATION/MOD PAIN 12/17/21 17:00 12/21/21 00:32 Ibuprofen (Motrin) 400 mg DAILY PO 12/18/21 09:00 12/21/21 08:42 Levetiracetam (Keppra) 1,500 mg BID PO 12/17/21 21:00 12/21/21 20:54 Levothyroxine Sodium (Synthroid) 50 mcg DAILY06 PO 12/18/21 06:00 12/21/21 05:50 Losartan Potassium (Cozaar) 75 mg DAILY PO 12/18/21 09:00 12/21/21 08:43 Al Hydroxide/Mg Hydroxide (Mylanta Plus Xs) 30 ml PRN Q6HRS PRN PO DYSPEPSIA 12/17/21 16:30 Magnesium Hydroxide (Milk Of Magnesia) 2,400 mg PRN QHS PRN PO 1ST CHOICE CONSTIPATION 12/17/21 16:30 Mirtazapine (Remeron) 15 mg QHS PO 12/17/21 21:00 12/21/21 20:54 Quetiapine Fumarate (SEROquel) 100 mg DAILY PO 12/18/21 09:00 12/21/21 08:45 Quetiapine Fumarate (SEROquel) 150 mg QHS PO 12/17/21 21:00 12/21/21 20:54 Sertraline HCl (Zoloft) 125 mg DAILY PO 12/18/21 09:00 12/21/21 20:53 DC 12/21/21 08:43 Artificial Tears (Refresh Classic) 1 drop BID OU 12/17/21 21:00 12/21/21 20:56 Lacosamide (Vimpat) 200 mg BID PO 12/17/21 21:00 12/21/21 20:57 Lactobacillus Rhamnosus (Culturelle) 1 cap BID PO 12/17/21 21:00 12/21/21 20:54 Loperamide HCl (Imodium) 2 mg PRN Q6HRS PRN PO LOOSE STOOLS 12/17/21 17:00 Cetirizine HCl (ZyrTEC) 10 mg DAILY PO 12/18/21 09:00 12/21/21 08:44 Melatonin (Melatonin) 6 mg PRN QHS PRN PO INSOMNIA 12/17/21 17:00 Non-Formulary Medication (Methyl Salicylate/Menth/ Camph (Muscle Rub Ultra Str Cream)) 114 gm BID PRN TP MUSCLE PAIN 12/17/21 16:30 UNV Atorvastatin Calcium (Lipitor) 10 mg HS PO 12/17/21 21:00 12/21/21 20:54 Fish Oil (Fish Oil) 2,000 mg DAILY PO 12/18/21 09:00 12/21/21 08:44 Nystatin (Nystop) 1 paz BID TP 12/19/21 21:00 12/21/21 20:54 Sertraline HCl (Zoloft) 150 mg DAILY PO 12/22/21 09:00 Current Medications Medications (Trade) Dose Ordered Sig/Disha Route PRN Reason Start Time Stop Time Status Last Admin Dose Admin Vitamin D (Vitamin D3) 50,000 unit QMONTH PO 12/21/21 09:00 12/21/21 08:42 I have reviewed the current psychotropics carefully including drug interactions. Risk benefit ratio favors no change other than as noted in my dictated progress note. Diagnosis: Problems: (1) Schizoaffective disorder, bipolar type (2) Bipolar disorder, current episode mixed, severe, with psychotic features (3) Anxiety disorder (4) Mild cognitive impairment (5) Impulse control disorder ELI RAMIREZ MD December 21, 2021 21:31
--- NOTE | 2021-12-21 23:58 | NUR ---
Pt located in the hallway this evening. Pt calm, cooperative and very pleasant. A/O x4. Compliant with whole medications. Pt states that she is here because she is crying all of the time. Pt states that she is not depressed; she just cries for no reason. States that she is not the "normal Felicia" right now.
[2021-12-22] MEDS: IBUPROFEN 200 MG TABLET PO PRN (00:11)
[2021-12-22] MEDS: LEVOTHYROXINE 50 MCG TABLET PO SCH (06:05)
[2021-12-22 06:11] VITALS: BP 160/72
--- NOTE | 2021-12-22 06:49 | PDOC ---
Exam Note: Danny Note: This note is a late entry for 12/20/2021 covers elements not covered in my initial note. Subjective: The patient was seen individually on 12/20/2021, discussed and reviewed the chart with Margo RIOS. The patient slept 6 hours previous night. The patient has been pleasant, cooperative, not aggressive, minimizes being depressed. Review of Systems: No CV, , pulmonary, eye, ENT system symptoms on review. Ambulation impaired, in wheelchair. Mental Status Exam: Patient is reasonably oriented. Speech coherent. Abstraction fair. Computation impaired. Language function intact. Mood and affect improved. No suicidal or homicidal ideation. Laboratory Data: Reviewed. Impression: Bipolar disorder, depressed with psychotic features. Schizoaffective disorder, bipolar type, mixed with psychotic features. Anxiety disorder unspecified. Impulse control disorder unspecified. Plan: Continue current psychotropics unchanged. Reviewed drug interactions, risk-benefit ratio. We may consider increasing Zoloft if depressive symptoms are evident. Assessment: Vital Signs/I&O: Vital Signs Date Time Temp Pulse Resp B/P (MAP) Pulse Ox O2 Delivery O2 Flow Rate FiO2 12/22/21 06:11 96.9 58 18 160/72 (101) 91 12/21/21 15:41 Room Air I & O 0 12/21/21 12/21/21 12/22/21 14:59 22:59 06:59 Intake Total 600 ml 720 ml Balance 600 ml 720 ml Current Medications: Meds: Current Medications Medications (Trade) Dose Ordered Sig/Disha Route PRN Reason Start Time Stop Time Status Last Admin Dose Admin Vitamin D (Vitamin D3) 50,000 unit QMONTH PO 12/21/21 09:00 12/21/21 08:42 I have reviewed the current psychotropics carefully including drug interactions. Risk benefit ratio favors no change other than as noted in my dictated progress note. Diagnosis: Problems: (1) Schizoaffective disorder, bipolar type (2) Bipolar disorder, current episode mixed, severe, with psychotic features (3) Anxiety disorder (4) Mild cognitive impairment (5) Impulse control disorder ELI RAMIREZ MD December 22, 2021 06:49
--- NOTE | 2021-12-22 07:02 | PDOC ---
Exam Note: Danny Note: This note is a late entry for 12/21/2021 covers elements not covered in my initial note. Subjective: The patient was seen individually on 12/21/2021, discussed and reviewed the chart with Shelley RIOS. The patient slept 7 hours previous night. The patient is compliant with her medications, calm, admits to having crying spells at times for no reason. Nursing staff have not observed it. I met with her at length in the hallway. Review of Systems: No CV, , pulmonary, eye, ENT system symptoms on review. Ambulation impaired, in wheelchair. Mental Status Exam: Patient is reasonably oriented. Speech coherent. Abstraction fair. Computation impaired. Language function intact. Mood and affect improved. No suicidal or homicidal ideation. Laboratory Data: Reviewed. Impression: Bipolar disorder, depressed with psychotic features. Schizoaffective disorder, bipolar type, mixed with psychotic features. Anxiety disorder unspecified. Impulse control disorder unspecified. Plan: Continue current psychotropics unchanged. Reviewed drug interactions, risk-benefit ratio. We will increase Zoloft to 150 mg a day consequent to her mood symptoms. Assessment: Vital Signs/I&O: Vital Signs Date Time Temp Pulse Resp B/P (MAP) Pulse Ox O2 Delivery O2 Flow Rate FiO2 12/22/21 06:11 96.9 58 18 160/72 (101) 91 12/21/21 15:41 Room Air I & O 12/21/21 12/21/21 12/22/21 15:00 23:00 07:00 Intake Total 600 ml 720 ml Balance 600 ml 720 ml Current Medications: Meds: Current Medications Medications (Trade) Dose Ordered Sig/Disha Route PRN Reason Start Time Stop Time Status Last Admin Dose Admin Vitamin D (Vitamin D3) 50,000 unit QMONTH PO 12/21/21 09:00 12/21/21 08:42 I have reviewed the current psychotropics carefully including drug interactions. Risk benefit ratio favors no change other than as noted in my dictated progress note. Diagnosis: Problems: (1) Schizoaffective disorder, bipolar type (2) Bipolar disorder, current episode mixed, severe, with psychotic features (3) Anxiety disorder (4) Mild cognitive impairment (5) Impulse control disorder ELI RAMIREZ MD December 22, 2021 07:02
[2021-12-22] MEDS: IBUPROFEN 400 MG TABLET. PO SCH (08:30)
[2021-12-22] MEDS: ASPIRIN CHEWABLE 81 MG TABLET. PO SCH (08:30)
[2021-12-22] MEDS: amLODIPine BESYLATE 10 MG TABLET PO SCH (08:30)
[2021-12-22] MEDS: levETIRAcetam 500 MG TABLET PO SCH ×2 (08:30→20:59)
[2021-12-22] MEDS: LACTOBACILLUS RHAMNOSUS GG 1 CAPSULE. PO SCH ×2 (08:30→20:59)
[2021-12-22] MEDS: QUEtiapine 100 MG TABLET. PO SCH ×2 (08:31→21:02)
[2021-12-22] MEDS: SERTRALINE 50 MG TABLET. PO SCH (08:31)
[2021-12-22] MEDS: LACOSAMIDE 50 MG TABLET PO SCH ×2 (08:31→21:02)
[2021-12-22] MEDS: CETIRIZINE HCL 10 MG TABLET PO SCH (08:31)
[2021-12-22] MEDS: LOSARTAN 50 MG TABLET. PO SCH (08:31)
[2021-12-22] MEDS: clonazePAM 0.5 MG TABLET PO SCH ×2 (08:31→21:00)
[2021-12-22] MEDS: POLYVINYL ALCOHOL/POVIDONE/PF OPHTH SOLUTION DROPERETTE. OU SCH ×2 (08:32→20:59)
[2021-12-22] MEDS: NYSTATIN TOPICAL POWDER 15GM BOTTLE. TP SCH ×2 (08:32→21:02)
[2021-12-22] MEDS: OMEGA-3 FATTY ACIDS/FISH OIL 1,000 MG CAPSULE. PO SCH (08:32)
--- NOTE | 2021-12-22 10:48 | NUR ---
Nursing note: Pt in dining room at time of AM med pass and assessment. She is pleasant, med compliant and cooperative. She c/o pain in her waist and knees that is relieved with scheduled ibuprofen. Pt denies having any other concerns. She is currently sitting quietly in the day room. Will continue to monitor.
[2021-12-22 15:41] VITALS: BP 167/82
--- NOTE | 2021-12-22 16:20 | NUR ---
SW met with pt to see how she felt she was doing overall. Pt reports that she spoke with her brother who told her that if she continued this behavior, [facility] have no option but to kick her out. Pt got sad and stated "I don't want to go anywhere else". SW confirmed that this was not a decision made lightly, but they cannot maintain her if she continues to display these behaviors. SW questioned if it was staff, other residents or what makes her act out. Pt stated that she just wasn't feeling herself; especially after she and a peer had a verbal altercation. "She called me an old bitch and I told her 'no, I'm a young bitch" followed by a laugh. SW questioned if pt had a counselor to meet with and she noted that she used to but was not sure why it stopped. She would be willing to see a counselor again. Pt also stated that they doctor she sees noted that she may need a new antidepressant and she is fine with that as well. SW noted that she would be talking to her brother Aristeo and the facility to see what options are available to hopefully make pt return to them successful.
[2021-12-22] MEDS: DONEPEZIL HCL 10 MG TABLET PO SCH (20:59)
[2021-12-22] MEDS: MIRTAZAPINE 15 MG TABLET PO SCH (21:00)
[2021-12-22] MEDS: ATORVASTATIN CALCIUM 10 MG TABLET. PO SCH (21:00)
--- NOTE | 2021-12-22 21:33 | PDOC ---
Exam Note: Danny Note: Please also refer to the separate dictated note~for this date of service dictated separately.~Patient seen individually. Discussed the patient with Nursing staff reviewed the chart.~Reviewed interim history and current functioning. Reviewed vital signs,~Labs/ Radiology~and current medications noted below. Continue current treatment with the changes noted in the dictated addendum note Assessment: Vital Signs/I&O: Vital Signs Date Time Temp Pulse Resp B/P (MAP) Pulse Ox O2 Delivery O2 Flow Rate FiO2 12/22/21 15:41 97.5 62 16 167/82 (110) 94 12/21/21 15:41 Room Air I & O 12/21/21 12/21/21 12/22/21 15:00 23:00 07:00 Intake Total 600 ml 720 ml Balance 600 ml 720 ml Current Medications: Meds: Current Medications Medications (Trade) Dose Ordered Sig/Disha Route PRN Reason Start Time Stop Time Status Last Admin Dose Admin Acetaminophen (Tylenol) 650 mg PRN Q6HRS PRN PO MILD PAIN / TEMP > 100.3'F 12/17/21 14:15 Cancel Multi-Ingredient Ointment (Analgesic [place]) 1 paz PRN QID PRN TP MUSCLE PAIN 12/17/21 14:15 Al Hydroxide/Mg Hydroxide (Mylanta Plus Xs) 15 ml PRN AFTMEALHC PRN PO DYSPEPSIA 12/17/21 14:15 Cancel Magnesium Hydroxide (Milk Of Magnesia) 2,400 mg PRN QHS PRN PO CONSTIPATION 12/17/21 14:15 Cancel Acetaminophen (Tylenol) 650 mg PRN Q4HRS PRN PO MILD PAIN / TEMP > 100.3'F 12/17/21 16:30 Amlodipine Besylate (Norvasc) 10 mg DAILY PO 12/18/21 09:00 12/22/21 08:30 Aspirin (Aspirin Chewable) 81 mg DAILY PO 12/18/21 09:00 12/22/21 08:30 Bisacodyl (Dulcolax Tab) 10 mg PRN DAILY PRN PO 2ND CHOICE CONSTIPATION 12/17/21 16:30 Vitamin D (Vitamin D3) 50,000 unit QMONTH PO 12/21/21 09:00 12/21/21 08:42 Vitamin D (Vitamin D3) 50,000 unit QMONTH PO 01/16/22 09:00 UNV Clonazepam (KlonoPIN) 0.5 mg BID PO 12/17/21 21:00 12/22/21 21:00 Clonazepam (KlonoPIN) 0.5 mg PRN DAILY PRN PO SEIZURE 12/17/21 16:30 Donepezil HCl (Aricept) 10 mg HS PO 12/17/21 21:00 12/22/21 20:59 Ibuprofen (Motrin) 200 mg PRN DAILY PRN PO INFLAMMATION/MOD PAIN 12/17/21 17:00 12/22/21 00:11 Ibuprofen (Motrin) 400 mg DAILY PO 12/18/21 09:00 12/22/21 08:30 Levetiracetam (Keppra) 1,500 mg BID PO 12/17/21 21:00 12/22/21 20:59 Levothyroxine Sodium (Synthroid) 50 mcg DAILY06 PO 12/18/21 06:00 12/22/21 06:05 Losartan Potassium (Cozaar) 75 mg DAILY PO 12/18/21 09:00 12/22/21 08:31 Al Hydroxide/Mg Hydroxide (Mylanta Plus Xs) 30 ml PRN Q6HRS PRN PO DYSPEPSIA 12/17/21 16:30 Magnesium Hydroxide (Milk Of Magnesia) 2,400 mg PRN QHS PRN PO 1ST CHOICE CONSTIPATION 12/17/21 16:30 Mirtazapine (Remeron) 15 mg QHS PO 12/17/21 21:00 12/22/21 21:00 Quetiapine Fumarate (SEROquel) 100 mg DAILY PO 12/18/21 09:00 12/22/21 08:31 Quetiapine Fumarate (SEROquel) 150 mg QHS PO 12/17/21 21:00 12/22/21 21:02 Sertraline HCl (Zoloft) 125 mg DAILY PO 12/18/21 09:00 12/21/21 20:53 DC 12/21/21 08:43 Artificial Tears (Refresh Classic) 1 drop BID OU 12/17/21 21:00 12/22/21 20:59 Lacosamide (Vimpat) 200 mg BID PO 12/17/21 21:00 12/22/21 21:02 Lactobacillus Rhamnosus (Culturelle) 1 cap BID PO 12/17/21 21:00 12/22/21 20:59 Loperamide HCl (Imodium) 2 mg PRN Q6HRS PRN PO LOOSE STOOLS 12/17/21 17:00 Cetirizine HCl (ZyrTEC) 10 mg DAILY PO 12/18/21 09:00 12/22/21 08:31 Melatonin (Melatonin) 6 mg PRN QHS PRN PO INSOMNIA 12/17/21 17:00 Non-Formulary Medication (Methyl Salicylate/Menth/ Camph (Muscle Rub Ultra Str Cream)) 114 gm BID PRN TP MUSCLE PAIN 12/17/21 16:30 UNV Atorvastatin Calcium (Lipitor) 10 mg HS PO 12/17/21 21:00 12/22/21 21:00 Fish Oil (Fish Oil) 2,000 mg DAILY PO 12/18/21 09:00 12/22/21 08:32 Nystatin (Nystop) 1 paz BID TP 12/19/21 21:00 12/22/21 21:02 Sertraline HCl (Zoloft) 150 mg DAILY PO 12/22/21 09:00 12/22/21 08:31 Current Medications Medications (Trade) Dose Ordered Sig/Disha Route PRN Reason Start Time Stop Time Status Last Admin Dose Admin Sertraline HCl (Zoloft) 150 mg DAILY PO 12/22/21 09:00 12/22/21 08:31 I have reviewed the current psychotropics carefully including drug interactions. Risk benefit ratio favors no change other than as noted in my dictated progress note. Diagnosis: Problems: (1) Schizoaffective disorder, bipolar type (2) Bipolar disorder, current episode mixed, severe, with psychotic features (3) Anxiety disorder (4) Mild cognitive impairment (5) Impulse control disorder ELI RAMIREZ MD December 22, 2021 21:33
[2021-12-23] MEDS: ACETAMINOPHEN 325 MG TABLET PO PRN (01:03)
--- NOTE | 2021-12-23 01:12 | NUR ---
Felicia was sitting in the dining room for med pass and assessment. She was alert, pleasant and cooperative. Rated pain in knees 5/10. Compliant in taking HS medications. Woke up in the night complaining of knee and hip pain rated 7/10 after using the restroom and was given Tylenol 650 mg at 0103. Resting quietly at this time.
[2021-12-23] MEDS: LEVOTHYROXINE 50 MCG TABLET PO SCH (06:10)
[2021-12-23 06:11] VITALS: BP 137/73
[2021-12-23] MEDS: CETIRIZINE HCL 10 MG TABLET PO SCH (08:30)
[2021-12-23] MEDS: amLODIPine BESYLATE 10 MG TABLET PO SCH (08:30)
[2021-12-23] MEDS: levETIRAcetam 500 MG TABLET PO SCH ×2 (08:30→20:08)
[2021-12-23] MEDS: QUEtiapine 100 MG TABLET. PO SCH ×2 (08:30→20:09)
[2021-12-23] MEDS: ASPIRIN CHEWABLE 81 MG TABLET. PO SCH (08:30)
[2021-12-23] MEDS: SERTRALINE 50 MG TABLET. PO SCH (08:30)
[2021-12-23] MEDS: LACTOBACILLUS RHAMNOSUS GG 1 CAPSULE. PO SCH ×2 (08:31→20:08)
[2021-12-23] MEDS: IBUPROFEN 400 MG TABLET. PO SCH (08:31)
[2021-12-23] MEDS: LOSARTAN 50 MG TABLET. PO SCH (08:31)
[2021-12-23] MEDS: OMEGA-3 FATTY ACIDS/FISH OIL 1,000 MG CAPSULE. PO SCH (08:31)
[2021-12-23] MEDS: clonazePAM 0.5 MG TABLET PO SCH ×2 (08:31→20:08)
[2021-12-23] MEDS: POLYVINYL ALCOHOL/POVIDONE/PF OPHTH SOLUTION DROPERETTE. OU SCH ×2 (08:32→20:08)
[2021-12-23] MEDS: NYSTATIN TOPICAL POWDER 15GM BOTTLE. TP SCH ×2 (08:32→20:07)
[2021-12-23] MEDS: LACOSAMIDE 50 MG TABLET PO SCH ×2 (08:32→20:08)
--- NOTE | 2021-12-23 10:03 | PDOC ---
Exam Note: Danny Note: This note is a late entry for 12/22/2021 covers elements not covered in my initial note. Subjective: The patient was seen individually on 12/22/2021, discussed and reviewed the chart with Candace RIOS. The patient slept 7-1/4 hours previous night. Overall she has done much better, much less depressed. No crying spells, verbal, interactive, smiling as I met with her. Review of Systems: Ambulation impaired, in wheelchair. No CV, , pulmonary, eye, ENT system symptoms on review. Mental Status Exam: Patient is well oriented. Speech is little pressured at times, anxious. Abstraction fair. Computation impaired. Language function intact. Attention span short. Mood and affect improved. No suicidal or homicidal ideation. Laboratory Data: Reviewed. Impression: Bipolar disorder, depressed with psychotic features. Schizoaffective disorder, bipolar type, mixed with psychotic features. Anxiety disorder unspecified. Impulse control disorder unspecified. Plan: Continue current psychotropics unchanged. Reviewed drug interactions, risk-benefit ratio. Assessment: Vital Signs/I&O: Vital Signs Date Time Temp Pulse Resp B/P (MAP) Pulse Ox O2 Delivery O2 Flow Rate FiO2 12/23/21 08:31 65 137/73 12/23/21 06:11 97.8 18 90 Room Air I & O 12/22/21 12/22/21 12/23/21 15:00 23:00 07:00 Intake Total 840 ml 390 ml Balance 840 ml 390 ml Current Medications: I have reviewed the current psychotropics carefully including drug interactions. Risk benefit ratio favors no change other than as noted in my dictated progress note. Diagnosis: Problems: (1) Schizoaffective disorder, bipolar type (2) Bipolar disorder, current episode mixed, severe, with psychotic features (3) Anxiety disorder (4) Mild cognitive impairment (5) Impulse control disorder ELI RAMIREZ MD December 23, 2021 10:03
--- NOTE | 2021-12-23 10:54 | NUR ---
Nursing note: Pt in dining room at time of AM med pass and assessment. She is pleasant, med compliant and cooperative. She c/o pain in her waist and knees that is relieved by scheduled ibuprofen. Pt has been very social with her roommate and peers. She is currently in the day room for group. Will continue to monitor.
[2021-12-23] MEDS: MIRTAZAPINE 15 MG TABLET PO SCH (20:08)
[2021-12-23] MEDS: DONEPEZIL HCL 10 MG TABLET PO SCH (20:08)
[2021-12-23] MEDS: ATORVASTATIN CALCIUM 10 MG TABLET. PO SCH (20:08)
--- NOTE | 2021-12-23 21:44 | PDOC ---
Exam Note: Danny Note: Please also refer to the separate dictated note~for this date of service dictated separately.~Patient seen individually. Discussed the patient with Nursing staff reviewed the chart.~Reviewed interim history and current functioning. Reviewed vital signs,~Labs/ Radiology~and current medications noted below. Continue current treatment with the changes noted in the dictated addendum note Assessment: Vital Signs/I&O: Vital Signs Date Time Temp Pulse Resp B/P (MAP) Pulse Ox O2 Delivery O2 Flow Rate FiO2 12/23/21 08:31 65 137/73 12/23/21 06:11 97.8 18 90 Room Air I & O 12/22/21 12/22/21 12/23/21 15:00 23:00 07:00 Intake Total 840 ml 390 ml Balance 840 ml 390 ml Current Medications: Meds: Current Medications Medications (Trade) Dose Ordered Sig/Disha Route PRN Reason Start Time Stop Time Status Last Admin Dose Admin Acetaminophen (Tylenol) 650 mg PRN Q6HRS PRN PO MILD PAIN / TEMP > 100.3'F 12/17/21 14:15 Cancel Multi-Ingredient Ointment (Analgesic [place]) 1 paz PRN QID PRN TP MUSCLE PAIN 12/17/21 14:15 Al Hydroxide/Mg Hydroxide (Mylanta Plus Xs) 15 ml PRN AFTMEALHC PRN PO DYSPEPSIA 12/17/21 14:15 Cancel Magnesium Hydroxide (Milk Of Magnesia) 2,400 mg PRN QHS PRN PO CONSTIPATION 12/17/21 14:15 Cancel Acetaminophen (Tylenol) 650 mg PRN Q4HRS PRN PO MILD PAIN / TEMP > 100.3'F 12/17/21 16:30 12/23/21 01:03 Amlodipine Besylate (Norvasc) 10 mg DAILY PO 12/18/21 09:00 12/23/21 08:30 Aspirin (Aspirin Chewable) 81 mg DAILY PO 12/18/21 09:00 12/23/21 08:30 Bisacodyl (Dulcolax Tab) 10 mg PRN DAILY PRN PO 2ND CHOICE CONSTIPATION 12/17/21 16:30 Vitamin D (Vitamin D3) 50,000 unit QMONTH PO 12/21/21 09:00 12/21/21 08:42 Vitamin D (Vitamin D3) 50,000 unit QMONTH PO 01/16/22 09:00 UNV Clonazepam (KlonoPIN) 0.5 mg BID PO 12/17/21 21:00 12/23/21 20:08 Clonazepam (KlonoPIN) 0.5 mg PRN DAILY PRN PO SEIZURE 12/17/21 16:30 Donepezil HCl (Aricept) 10 mg HS PO 12/17/21 21:00 12/23/21 20:08 Ibuprofen (Motrin) 200 mg PRN DAILY PRN PO INFLAMMATION/MOD PAIN 12/17/21 17:00 12/22/21 00:11 Ibuprofen (Motrin) 400 mg DAILY PO 12/18/21 09:00 12/23/21 08:31 Levetiracetam (Keppra) 1,500 mg BID PO 12/17/21 21:00 12/23/21 20:08 Levothyroxine Sodium (Synthroid) 50 mcg DAILY06 PO 12/18/21 06:00 12/23/21 06:10 Losartan Potassium (Cozaar) 75 mg DAILY PO 12/18/21 09:00 12/23/21 08:31 Al Hydroxide/Mg Hydroxide (Mylanta Plus Xs) 30 ml PRN Q6HRS PRN PO DYSPEPSIA 12/17/21 16:30 Magnesium Hydroxide (Milk Of Magnesia) 2,400 mg PRN QHS PRN PO 1ST CHOICE CONSTIPATION 12/17/21 16:30 Mirtazapine (Remeron) 15 mg QHS PO 12/17/21 21:00 12/23/21 20:08 Quetiapine Fumarate (SEROquel) 100 mg DAILY PO 12/18/21 09:00 12/23/21 08:30 Quetiapine Fumarate (SEROquel) 150 mg QHS PO 12/17/21 21:00 12/23/21 20:09 Sertraline HCl (Zoloft) 125 mg DAILY PO 12/18/21 09:00 12/21/21 20:53 DC 12/21/21 08:43 Artificial Tears (Refresh Classic) 1 drop BID OU 12/17/21 21:00 12/23/21 20:08 Lacosamide (Vimpat) 200 mg BID PO 12/17/21 21:00 12/23/21 20:08 Lactobacillus Rhamnosus (Culturelle) 1 cap BID PO 12/17/21 21:00 12/23/21 20:08 Loperamide HCl (Imodium) 2 mg PRN Q6HRS PRN PO LOOSE STOOLS 12/17/21 17:00 Cetirizine HCl (ZyrTEC) 10 mg DAILY PO 12/18/21 09:00 12/23/21 08:30 Melatonin (Melatonin) 6 mg PRN QHS PRN PO INSOMNIA 12/17/21 17:00 Non-Formulary Medication (Methyl Salicylate/Menth/ Camph (Muscle Rub Ultra Str Cream)) 114 gm BID PRN TP MUSCLE PAIN 12/17/21 16:30 UNV Atorvastatin Calcium (Lipitor) 10 mg HS PO 12/17/21 21:00 12/23/21 20:08 Fish Oil (Fish Oil) 2,000 mg DAILY PO 12/18/21 09:00 12/23/21 08:31 Nystatin (Nystop) 1 paz BID TP 12/19/21 21:00 12/23/21 20:07 Sertraline HCl (Zoloft) 150 mg DAILY PO 12/22/21 09:00 12/23/21 08:30 I have reviewed the current psychotropics carefully including drug interactions. Risk benefit ratio favors no change other than as noted in my dictated progress note. Diagnosis: Problems: (1) Schizoaffective disorder, bipolar type (2) Bipolar disorder, current episode mixed, severe, with psychotic features (3) Anxiety disorder (4) Mild cognitive impairment (5) Impulse control disorder ELI RAMIREZ MD December 23, 2021 21:44
--- NOTE | 2021-12-23 22:32 | NUR ---
Pt sitting up in w/c in the hallway when approached. Pt calm, pleasant, and appropriate. Pt cooperative with assessment and compliant with medications administered whole. Pt did become irritable with staff during her shower because she perceived it taking staff too long to get her into the shower.
[2021-12-24] MEDS: LEVOTHYROXINE 50 MCG TABLET PO SCH (05:37)
[2021-12-24 05:58] VITALS: BP 123/68
--- NOTE | 2021-12-24 06:18 | PDOC ---
Exam Note: Danny Note: This note is a late entry for 12/23/2021 covers elements not covered in my initial note. Subjective: The patient was seen individually on 12/23/2021, discussed and reviewed the chart with Candace RIOS. The patient slept 7 hours previous night. She put herself on the floor last night though when I questioned her on it she denied it. The patient was hearing country music through her iPad. Review of Systems: Ambulation impaired, in wheelchair. No CV, , pulmonary, eye, ENT system symptoms on review. Mental Status Exam: Patient is well oriented. Speech is little pressured at times, anxious. Abstraction fair. Computation impaired. Language function intact. Attention span short. Mood and affect improved. No suicidal or homicidal ideation. Laboratory Data: Reviewed. Impression: Bipolar disorder, depressed with psychotic features. Schizoaffective disorder, bipolar type, mixed with psychotic features. Anxiety disorder unspecified. Impulse control disorder unspecified. Plan: Continue current psychotropics unchanged. Reviewed drug interactions, risk-benefit ratio. Assessment: Vital Signs/I&O: Vital Signs Date Time Temp Pulse Resp B/P (MAP) Pulse Ox O2 Delivery O2 Flow Rate FiO2 12/24/21 05:58 97.4 72 18 123/68 (86) 91 Room Air I & O 12/23/21 12/23/21 12/24/21 15:00 23:00 07:00 Intake Total 960 ml 720 ml Balance 960 ml 720 ml Labs: Laboratory Tests Test 12/23/21 13:40 POC SARS CoV-2 Antigen Negative (NEGATIVE) Current Medications: I have reviewed the current psychotropics carefully including drug interactions. Risk benefit ratio favors no change other than as noted in my dictated progress note. Diagnosis: Problems: (1) Schizoaffective disorder, bipolar type (2) Bipolar disorder, current episode mixed, severe, with psychotic features (3) Anxiety disorder (4) Mild cognitive impairment (5) Impulse control disorder ELI RAMIREZ MD December 24, 2021 06:18
[2021-12-24 06:42] LABS: BASO # 0.1 x10^3/uL (0.0-0.2); BASO % 1 % (0-3); EOS # 0.4 x10^3/uL (0.0-0.7); EOS % 4 % (0-3); HEMATOCRIT 36.7 % (36.0-47.0); HEMOGLOBIN 12.4 g/dL (12.0-15.5); LYMPH # 4.1 x10^3/uL (1.0-4.8); LYMPH % 41 % (24-48); MEAN CORPUSCULAR HEMOGLOBIN 32 pg (25-35); MEAN CORPUSCULAR HGB CONC 34 g/dL (31-37); MEAN CORPUSCULAR VOLUME 95 fL (79-100); MONO # 0.9 x10^3/uL (0.0-1.1); MONO % 10 % (0-9); NEUT # 4.5 x10^3uL (1.8-7.7); NEUT % 45 % (31-73); PLATELET COUNT 219 x10^3/uL (140-400); RED BLOOD COUNT 3.88 x10^6/uL (3.50-5.40); RED CELL DISTRIBUTION WIDTH 13.2 % (11.5-14.5)
[2021-12-24 06:52] LABS: ALBUMIN 3.1 g/dL (3.4-5.0); ALBUMIN/GLOBULIN RATIO 0.8 (1.0-1.7); CALCIUM 9.3 mg/dL (8.5-10.1); CREATININE 0.9 mg/dL (0.6-1.0); GFR 61.5; POTASSIUM 4.2 mmol/L (3.5-5.1); TOTAL BILIRUBIN 0.3 mg/dL (0.2-1.0)
[2021-12-24] MEDS: levETIRAcetam 500 MG TABLET PO SCH ×2 (08:25→20:13)
[2021-12-24] MEDS: NYSTATIN TOPICAL POWDER 15GM BOTTLE. TP SCH ×2 (08:25→20:13)
[2021-12-24] MEDS: POLYVINYL ALCOHOL/POVIDONE/PF OPHTH SOLUTION DROPERETTE. OU SCH ×2 (08:25→20:13)
[2021-12-24] MEDS: CETIRIZINE HCL 10 MG TABLET PO SCH (08:25)
[2021-12-24] MEDS: LACOSAMIDE 50 MG TABLET PO SCH ×2 (08:26→20:13)
[2021-12-24] MEDS: OMEGA-3 FATTY ACIDS/FISH OIL 1,000 MG CAPSULE. PO SCH (08:26)
[2021-12-24] MEDS: SERTRALINE 50 MG TABLET. PO SCH (08:26)
[2021-12-24] MEDS: clonazePAM 0.5 MG TABLET PO SCH ×2 (08:26→20:13)
[2021-12-24] MEDS: IBUPROFEN 400 MG TABLET. PO SCH (08:26)
[2021-12-24] MEDS: QUEtiapine 100 MG TABLET. PO SCH ×2 (08:26→20:13)
[2021-12-24] MEDS: ASPIRIN CHEWABLE 81 MG TABLET. PO SCH (08:27)
[2021-12-24] MEDS: LOSARTAN 50 MG TABLET. PO SCH (08:27)
[2021-12-24] MEDS: amLODIPine BESYLATE 10 MG TABLET PO SCH (08:27)
[2021-12-24] MEDS: LACTOBACILLUS RHAMNOSUS GG 1 CAPSULE. PO SCH ×2 (08:27→20:13)
--- NOTE | 2021-12-24 09:46 | NUR ---
Nursing note: Pt in dining room at time of AM med pass and assessment. She is pleasant, med compliant and cooperative. Pt has been very social with her roommate and peers. She is currently in the day room watching TV. Will continue to monitor.
[2021-12-24 16:05] VITALS: BP 140/71
[2021-12-24] MEDS: MIRTAZAPINE 15 MG TABLET PO SCH (20:13)
[2021-12-24] MEDS: ATORVASTATIN CALCIUM 10 MG TABLET. PO SCH (20:13)
[2021-12-24] MEDS: DONEPEZIL HCL 10 MG TABLET PO SCH (20:13)
--- NOTE | 2021-12-24 21:33 | PDOC ---
Exam Note: Danny Note: Please also refer to the separate dictated note~for this date of service dictated separately.~Patient seen individually. Discussed the patient with Nursing staff reviewed the chart.~Reviewed interim history and current functioning. Reviewed vital signs,~Labs/ Radiology~and current medications noted below. Continue current treatment with the changes noted in the dictated addendum note Assessment: Vital Signs/I&O: Vital Signs Date Time Temp Pulse Resp B/P (MAP) Pulse Ox O2 Delivery O2 Flow Rate FiO2 12/24/21 16:05 98.3 60 20 140/71 (94) 93 Room Air I & O 12/23/21 12/23/21 12/24/21 15:00 23:00 07:00 Intake Total 960 ml 720 ml Balance 960 ml 720 ml Labs: Laboratory Tests Test 12/24/21 06:09 White Blood Count 10.0 x10^3/uL (4.0-11.0) Red Blood Count 3.88 x10^6/uL (3.50-5.40) Hemoglobin 12.4 g/dL (12.0-15.5) Hematocrit 36.7 % (36.0-47.0) Mean Corpuscular Volume 95 fL (79-100) Mean Corpuscular Hemoglobin 32 pg (25-35) Mean Corpuscular Hemoglobin Concent 34 g/dL (31-37) Red Cell Distribution Width 13.2 % (11.5-14.5) Platelet Count 219 x10^3/uL (140-400) Neutrophils (%) (Auto) 45 % (31-73) Lymphocytes (%) (Auto) 41 % (24-48) Monocytes (%) (Auto) 10 % (0-9) H Eosinophils (%) (Auto) 4 % (0-3) H Basophils (%) (Auto) 1 % (0-3) Neutrophils # (Auto) 4.5 x10^3uL (1.8-7.7) Lymphocytes # (Auto) 4.1 x10^3/uL (1.0-4.8) Monocytes # (Auto) 0.9 x10^3/uL (0.0-1.1) Eosinophils # (Auto) 0.4 x10^3/uL (0.0-0.7) Basophils # (Auto) 0.1 x10^3/uL (0.0-0.2) Sodium Level 142 mmol/L (136-145) Potassium Level 4.2 mmol/L (3.5-5.1) Chloride Level 105 mmol/L (98-107) Carbon Dioxide Level 28 mmol/L (21-32) Anion Gap 9 (6-14) Blood Urea Nitrogen 29 mg/dL (7-20) H Creatinine 0.9 mg/dL (0.6-1.0) Estimated GFR (Cockcroft-Gault) 61.5 BUN/Creatinine Ratio 32 (6-20) H Glucose Level 103 mg/dL (70-99) H Calcium Level 9.3 mg/dL (8.5-10.1) Total Bilirubin 0.3 mg/dL (0.2-1.0) Aspartate Amino Transferase (AST) 16 U/L (15-37) Alanine Aminotransferase (ALT) 28 U/L (14-59) Alkaline Phosphatase 70 U/L (46-116) Total Protein 7.0 g/dL (6.4-8.2) Albumin 3.1 g/dL (3.4-5.0) L Albumin/Globulin Ratio 0.8 (1.0-1.7) L Current Medications: Meds: Laboratory Tests Test 12/24/21 06:09 White Blood Count 10.0 x10^3/uL Red Blood Count 3.88 x10^6/uL Hemoglobin 12.4 g/dL Hematocrit 36.7 % Mean Corpuscular Volume 95 fL Mean Corpuscular Hemoglobin 32 pg Mean Corpuscular Hemoglobin Concent 34 g/dL Red Cell Distribution Width 13.2 % Platelet Count 219 x10^3/uL Neutrophils (%) (Auto) 45 % Lymphocytes (%) (Auto) 41 % Monocytes (%) (Auto) 10 % Eosinophils (%) (Auto) 4 % Basophils (%) (Auto) 1 % Neutrophils # (Auto) 4.5 x10^3uL Lymphocytes # (Auto) 4.1 x10^3/uL Monocytes # (Auto) 0.9 x10^3/uL Eosinophils # (Auto) 0.4 x10^3/uL Basophils # (Auto) 0.1 x10^3/uL Sodium Level 142 mmol/L Potassium Level 4.2 mmol/L Chloride Level 105 mmol/L Carbon Dioxide Level 28 mmol/L Anion Gap 9 Blood Urea Nitrogen 29 mg/dL Creatinine 0.9 mg/dL Estimated GFR (Cockcroft-Gault) 61.5 BUN/Creatinine Ratio 32 Glucose Level 103 mg/dL Calcium Level 9.3 mg/dL Total Bilirubin 0.3 mg/dL Aspartate Amino Transf (AST/SGOT) 16 U/L Alanine Aminotransferase (ALT/SGPT) 28 U/L Alkaline Phosphatase 70 U/L Total Protein 7.0 g/dL Albumin 3.1 g/dL Albumin/Globulin Ratio 0.8 Current Medications Medications (Trade) Dose Ordered Sig/Disha Route PRN Reason Start Time Stop Time Status Last Admin Dose Admin Acetaminophen (Tylenol) 650 mg PRN Q6HRS PRN PO MILD PAIN / TEMP > 100.3'F 12/17/21 14:15 Cancel Multi-Ingredient Ointment (Analgesic [place]) 1 paz PRN QID PRN TP MUSCLE PAIN 12/17/21 14:15 Al Hydroxide/Mg Hydroxide (Mylanta Plus Xs) 15 ml PRN AFTMEALHC PRN PO DYSPEPSIA 12/17/21 14:15 Cancel Magnesium Hydroxide (Milk Of Magnesia) 2,400 mg PRN QHS PRN PO CONSTIPATION 12/17/21 14:15 Cancel Acetaminophen (Tylenol) 650 mg PRN Q4HRS PRN PO MILD PAIN / TEMP > 100.3'F 12/17/21 16:30 12/23/21 01:03 Amlodipine Besylate (Norvasc) 10 mg DAILY PO 12/18/21 09:00 12/24/21 08:27 Aspirin (Aspirin Chewable) 81 mg DAILY PO 12/18/21 09:00 12/24/21 08:27 Bisacodyl (Dulcolax Tab) 10 mg PRN DAILY PRN PO 2ND CHOICE CONSTIPATION 12/17/21 16:30 Vitamin D (Vitamin D3) 50,000 unit QMONTH PO 12/21/21 09:00 12/21/21 08:42 Vitamin D (Vitamin D3) 50,000 unit QMONTH PO 01/16/22 09:00 UNV Clonazepam (KlonoPIN) 0.5 mg BID PO 12/17/21 21:00 12/24/21 20:13 Clonazepam (KlonoPIN) 0.5 mg PRN DAILY PRN PO SEIZURE 12/17/21 16:30 Donepezil HCl (Aricept) 10 mg HS PO 12/17/21 21:00 12/24/21 20:13 Ibuprofen (Motrin) 200 mg PRN DAILY PRN PO INFLAMMATION/MOD PAIN 12/17/21 17:00 12/22/21 00:11 Ibuprofen (Motrin) 400 mg DAILY PO 12/18/21 09:00 12/24/21 08:26 Levetiracetam (Keppra) 1,500 mg BID PO 12/17/21 21:00 12/24/21 20:13 Levothyroxine Sodium (Synthroid) 50 mcg DAILY06 PO 12/18/21 06:00 12/24/21 05:37 Losartan Potassium (Cozaar) 75 mg DAILY PO 12/18/21 09:00 12/24/21 08:27 Al Hydroxide/Mg Hydroxide (Mylanta Plus Xs) 30 ml PRN Q6HRS PRN PO DYSPEPSIA 12/17/21 16:30 Magnesium Hydroxide (Milk Of Magnesia) 2,400 mg PRN QHS PRN PO 1ST CHOICE CONSTIPATION 12/17/21 16:30 Mirtazapine (Remeron) 15 mg QHS PO 12/17/21 21:00 12/24/21 20:13 Quetiapine Fumarate (SEROquel) 100 mg DAILY PO 12/18/21 09:00 12/24/21 08:26 Quetiapine Fumarate (SEROquel) 150 mg QHS PO 12/17/21 21:00 12/24/21 20:13 Sertraline HCl (Zoloft) 125 mg DAILY PO 12/18/21 09:00 12/21/21 20:53 DC 12/21/21 08:43 Artificial Tears (Refresh Classic) 1 drop BID OU 12/17/21 21:00 12/24/21 20:13 Lacosamide (Vimpat) 200 mg BID PO 12/17/21 21:00 12/24/21 20:13 Lactobacillus Rhamnosus (Culturelle) 1 cap BID PO 12/17/21 21:00 12/24/21 20:13 Loperamide HCl (Imodium) 2 mg PRN Q6HRS PRN PO LOOSE STOOLS 12/17/21 17:00 Cetirizine HCl (ZyrTEC) 10 mg DAILY PO 12/18/21 09:00 12/24/21 08:25 Melatonin (Melatonin) 6 mg PRN QHS PRN PO INSOMNIA 12/17/21 17:00 Non-Formulary Medication (Methyl Salicylate/Menth/ Camph (Muscle Rub Ultra Str Cream)) 114 gm BID PRN TP MUSCLE PAIN 12/17/21 16:30 UNV Atorvastatin Calcium (Lipitor) 10 mg HS PO 12/17/21 21:00 12/24/21 20:13 Fish Oil (Fish Oil) 2,000 mg DAILY PO 12/18/21 09:00 12/24/21 08:26 Nystatin (Nystop) 1 paz BID TP 12/19/21 21:00 12/24/21 20:13 Sertraline HCl (Zoloft) 150 mg DAILY PO 12/22/21 09:00 12/24/21 08:26 I have reviewed the current psychotropics carefully including drug interactions. Risk benefit ratio favors no change other than as noted in my dictated progress note. Diagnosis: Problems: (1) Schizoaffective disorder, bipolar type (2) Bipolar disorder, current episode mixed, severe, with psychotic features (3) Anxiety disorder (4) Mild cognitive impairment (5) Impulse control disorder ELI RAMIREZ MD December 24, 2021 21:33
--- NOTE | 2021-12-25 00:12 | NUR ---
Pt sitting up in w/c in the hallway when approached. Pt A/O, calm, pleasant, and interactive/social with staff and peers. Pt cooperative with assessment and compliant with medications administered whole. No adverse or disruptive behaviors noted thus far this shift.
[2021-12-25] MEDS: LEVOTHYROXINE 50 MCG TABLET PO SCH (05:11)
[2021-12-25 06:02] VITALS: BP 126/76
--- NOTE | 2021-12-25 06:29 | PDOC ---
Exam Note: Danny Note: This note is a late entry for 12/24/2021 covers elements not covered in my initial note. Subjective: The patient was seen individually on 12/24/2021, discussed and reviewed the chart with Candace RIOS. The patient slept 7 hours previous night. I met with the patient in the dining room. She is irritable at times especially with showers at night. Today she has done better. Review of Systems: Ambulation impaired, in wheelchair. No CV, , pulmonary, eye, ENT system symptoms on review. Mental Status Exam: Patient is reasonably oriented. Speech is little pressured at times. Abstraction fair. Computation impaired. Language function intact. Attention span short. Mood and affect improved. No suicidal or homicidal ideation. Laboratory Data: Reviewed. Impression: Bipolar disorder, depressed with psychotic features. Schizoaffective disorder, bipolar type, mixed with psychotic features. Anxiety disorder unspecified. Impulse control disorder unspecified. Plan: Continue current psychotropics unchanged. Reviewed drug interactions, risk-benefit ratio. We may need to increase Zoloft further as clinically indicated. Assessment: Vital Signs/I&O: Vital Signs Date Time Temp Pulse Resp B/P (MAP) Pulse Ox O2 Delivery O2 Flow Rate FiO2 12/25/21 06:02 97.6 57 20 126/76 (93) 90 12/24/21 16:05 Room Air I & O 12/24/21 12/24/21 12/25/21 15:00 23:00 07:00 Intake Total 840 ml 480 ml Balance 840 ml 480 ml Current Medications: I have reviewed the current psychotropics carefully including drug interactions. Risk benefit ratio favors no change other than as noted in my dictated progress note. Diagnosis: Problems: (1) Schizoaffective disorder, bipolar type (2) Bipolar disorder, current episode mixed, severe, with psychotic features (3) Anxiety disorder (4) Mild cognitive impairment (5) Impulse control disorder ELI RAMIREZ MD December 25, 2021 06:29
[2021-12-25] MEDS: LACOSAMIDE 50 MG TABLET PO SCH ×2 (08:19→20:00)
[2021-12-25] MEDS: ASPIRIN CHEWABLE 81 MG TABLET. PO SCH (08:19)
[2021-12-25] MEDS: clonazePAM 0.5 MG TABLET PO SCH ×2 (08:19→19:59)
[2021-12-25] MEDS: QUEtiapine 100 MG TABLET. PO SCH ×2 (08:19→20:00)
[2021-12-25] MEDS: LOSARTAN 50 MG TABLET. PO SCH (08:20)
[2021-12-25] MEDS: amLODIPine BESYLATE 10 MG TABLET PO SCH (08:20)
[2021-12-25] MEDS: levETIRAcetam 500 MG TABLET PO SCH ×2 (08:20→20:00)
[2021-12-25] MEDS: IBUPROFEN 400 MG TABLET. PO SCH (08:21)
[2021-12-25] MEDS: CETIRIZINE HCL 10 MG TABLET PO SCH (08:21)
[2021-12-25] MEDS: OMEGA-3 FATTY ACIDS/FISH OIL 1,000 MG CAPSULE. PO SCH (08:21)
[2021-12-25] MEDS: LACTOBACILLUS RHAMNOSUS GG 1 CAPSULE. PO SCH ×2 (08:21→20:00)
[2021-12-25] MEDS: SERTRALINE 50 MG TABLET. PO SCH (08:21)
[2021-12-25] MEDS: POLYVINYL ALCOHOL/POVIDONE/PF OPHTH SOLUTION DROPERETTE. OU SCH ×2 (08:22→20:00)
[2021-12-25] MEDS: NYSTATIN TOPICAL POWDER 15GM BOTTLE. TP SCH ×2 (08:22→19:59)
--- NOTE | 2021-12-25 11:10 | NUR ---
Treatment team update: Pt is eating roughly 75% of meals and sleeping 7 hours. Pt is calm, compliant with medications and cooperative with all staff direction. Pt has had one period of irritability surrounding her not wanting to take a shower but eventually was compliant. Otherwise, pt is social, interactive and smiles quite often. Pt may return to [facility] and MICHELLE will plan to look into getting pt a therapist to work on mood and coping skills in hopes that it will help pt remain at the facility versus being sent out when she gets upset with staff or her peers. Pt has attended four groups with minimal to moderate participation; otherwise pt will use the Dimitrios to listen to music while in her room or in the hallway. MICHELLE will work with pt family and facility on discharge plans. CHARLY for Friday 12/29.
--- NOTE | 2021-12-25 11:14 | NUR ---
WEEKLY ACTIVITY THERAPY NOTE Date of Admission: 12/17/21 Date of AT Assessment: 12/18 Precipitating behaviors that initiated intake and admission:expresses she doesn't like "this Felicia", agitation, screaming, crying hysterically, labile, mood, expresses she hopes the staff "fucking ", depressed, anxious, name calling, threatening to punch peer Goal aimed: support socialization and engagement Initial Goal: Pt will participate in at least five Activity Therapy sessions per week Weekly progress towards goal: did not achieve, 11/25 Group participation level: 1 min,1 mod, 2 full Weekly highlights: chose movie to watch on Wednesday and watched the entire time Behaviors observed: increased participation as week has progressed, patient with peers, enjoys chatting with staff Plan: no change to goal Beneficial adaptations:
--- NOTE | 2021-12-25 14:48 | NUR ---
MICHELLE received a call from pt brother, Aristeo, who wanted to discuss his conversation had with [facility]. MICHELLE and Aristeo both understand that the facility is essentially done and has decided to move pt. It was unclear on if pt would discharge back to [facility] first or if she would transition to her new placement. MICHELLE and Aristeo discussed making sure pt knew versus keeping her out of the loop. Aristeo expressed upset as pt has lived there for a very long time and they are not willing to give her a chance after her stay on [facility]. MICHELLE will clarify with Mylene at [facility] on pt move, inform Aristeo and sit down with the pt letting her know the game plan. MICHELLE did let Aristeo know that discharge would take place on Wednesday.
[2021-12-25 16:20] VITALS: BP 107/61
--- NOTE | 2021-12-25 16:51 | NUR ---
Nsg Note; Felicia has been calm, pleasant and cooperative. She stays in the dayroom with others between meals, and likes to listen to the radio and watch TV
[2021-12-25] MEDS: DONEPEZIL HCL 10 MG TABLET PO SCH (19:59)
[2021-12-25] MEDS: ATORVASTATIN CALCIUM 10 MG TABLET. PO SCH (20:00)
[2021-12-25] MEDS: MIRTAZAPINE 15 MG TABLET PO SCH (20:00)
--- NOTE | 2021-12-25 21:43 | PDOC ---
Exam Note: Danny Note: Please also refer to the separate dictated note~for this date of service dictated separately.~Patient seen individually. Discussed the patient with Nursing staff reviewed the chart.~Reviewed interim history and current functioning. Reviewed vital signs,~Labs/ Radiology~and current medications noted below. Continue current treatment with the changes noted in the dictated addendum note Assessment: Vital Signs/I&O: Vital Signs Date Time Temp Pulse Resp B/P (MAP) Pulse Ox O2 Delivery O2 Flow Rate FiO2 12/25/21 16:20 98.3 64 18 107/61 (76) 93 Room Air I & O 12/24/21 12/24/21 12/25/21 15:00 23:00 07:00 Intake Total 840 ml 480 ml Balance 840 ml 480 ml Current Medications: Meds: Current Medications Medications (Trade) Dose Ordered Sig/Disha Route PRN Reason Start Time Stop Time Status Last Admin Dose Admin Acetaminophen (Tylenol) 650 mg PRN Q6HRS PRN PO MILD PAIN / TEMP > 100.3'F 12/17/21 14:15 Cancel Multi-Ingredient Ointment (Analgesic [place]) 1 paz PRN QID PRN TP MUSCLE PAIN 12/17/21 14:15 Al Hydroxide/Mg Hydroxide (Mylanta Plus Xs) 15 ml PRN AFTMEALHC PRN PO DYSPEPSIA 12/17/21 14:15 Cancel Magnesium Hydroxide (Milk Of Magnesia) 2,400 mg PRN QHS PRN PO CONSTIPATION 12/17/21 14:15 Cancel Acetaminophen (Tylenol) 650 mg PRN Q4HRS PRN PO MILD PAIN / TEMP > 100.3'F 12/17/21 16:30 12/23/21 01:03 Amlodipine Besylate (Norvasc) 10 mg DAILY PO 12/18/21 09:00 12/25/21 08:20 Aspirin (Aspirin Chewable) 81 mg DAILY PO 12/18/21 09:00 12/25/21 08:19 Bisacodyl (Dulcolax Tab) 10 mg PRN DAILY PRN PO 2ND CHOICE CONSTIPATION 12/17/21 16:30 Vitamin D (Vitamin D3) 50,000 unit QMONTH PO 12/21/21 09:00 12/21/21 08:42 Vitamin D (Vitamin D3) 50,000 unit QMONTH PO 01/16/22 09:00 UNV Clonazepam (KlonoPIN) 0.5 mg BID PO 12/17/21 21:00 12/25/21 19:59 Clonazepam (KlonoPIN) 0.5 mg PRN DAILY PRN PO SEIZURE 12/17/21 16:30 Donepezil HCl (Aricept) 10 mg HS PO 12/17/21 21:00 12/25/21 19:59 Ibuprofen (Motrin) 200 mg PRN DAILY PRN PO INFLAMMATION/MOD PAIN 12/17/21 17:00 12/22/21 00:11 Ibuprofen (Motrin) 400 mg DAILY PO 12/18/21 09:00 12/25/21 08:21 Levetiracetam (Keppra) 1,500 mg BID PO 12/17/21 21:00 12/25/21 20:00 Levothyroxine Sodium (Synthroid) 50 mcg DAILY06 PO 12/18/21 06:00 12/25/21 05:11 Losartan Potassium (Cozaar) 75 mg DAILY PO 12/18/21 09:00 12/25/21 08:20 Al Hydroxide/Mg Hydroxide (Mylanta Plus Xs) 30 ml PRN Q6HRS PRN PO DYSPEPSIA 12/17/21 16:30 Magnesium Hydroxide (Milk Of Magnesia) 2,400 mg PRN QHS PRN PO 1ST CHOICE CONSTIPATION 12/17/21 16:30 Mirtazapine (Remeron) 15 mg QHS PO 12/17/21 21:00 12/25/21 20:00 Quetiapine Fumarate (SEROquel) 100 mg DAILY PO 12/18/21 09:00 12/25/21 08:19 Quetiapine Fumarate (SEROquel) 150 mg QHS PO 12/17/21 21:00 12/25/21 20:00 Sertraline HCl (Zoloft) 125 mg DAILY PO 12/18/21 09:00 12/21/21 20:53 DC 12/21/21 08:43 Artificial Tears (Refresh Classic) 1 drop BID OU 12/17/21 21:00 12/25/21 20:00 Lacosamide (Vimpat) 200 mg BID PO 12/17/21 21:00 12/25/21 20:00 Lactobacillus Rhamnosus (Culturelle) 1 cap BID PO 12/17/21 21:00 12/25/21 20:00 Loperamide HCl (Imodium) 2 mg PRN Q6HRS PRN PO LOOSE STOOLS 12/17/21 17:00 12/25/21 08:26 Cetirizine HCl (ZyrTEC) 10 mg DAILY PO 12/18/21 09:00 12/25/21 08:21 Melatonin (Melatonin) 6 mg PRN QHS PRN PO INSOMNIA 12/17/21 17:00 Non-Formulary Medication (Methyl Salicylate/Menth/ Camph (Muscle Rub Ultra Str Cream)) 114 gm BID PRN TP MUSCLE PAIN 12/17/21 16:30 UNV Atorvastatin Calcium (Lipitor) 10 mg HS PO 12/17/21 21:00 12/25/21 20:00 Fish Oil (Fish Oil) 2,000 mg DAILY PO 12/18/21 09:00 12/25/21 08:21 Nystatin (Nystop) 1 paz BID TP 12/19/21 21:00 12/25/21 19:59 Sertraline HCl (Zoloft) 150 mg DAILY PO 12/22/21 09:00 12/25/21 08:21 I have reviewed the current psychotropics carefully including drug interactions. Risk benefit ratio favors no change other than as noted in my dictated progress note. Diagnosis: Problems: (1) Schizoaffective disorder, bipolar type (2) Bipolar disorder, current episode mixed, severe, with psychotic features (3) Anxiety disorder (4) Mild cognitive impairment (5) Impulse control disorder ELI RAMIREZ MD December 25, 2021 21:43
--- NOTE | 2021-12-25 22:44 | NUR ---
Pt sitting up in w/c in the day room when approached. Pt calm, pleasant, and interactive. Pt cooperative with assessment and compliant with medications administered whole. No adverse or disruptive behaviors noted thus far this shift.
[2021-12-26] MEDS: LEVOTHYROXINE 50 MCG TABLET PO SCH (05:07)
[2021-12-26 05:52] VITALS: BP 153/62
--- NOTE | 2021-12-26 07:56 | PDOC ---
Exam Note: Danny Note: This note is a late entry for 12/25/2021 covers elements not covered in my initial note. Subjective: The patient was reviewed at treatment team meeting individually in the morning on 12/25/2021 with Annmarie Chavez, Mariluz Koroma, and Melody Man (manager social media), Erna, activity therapy, and Zaria RIOS, discussed and reviewed the chart. The patient slept 6-3/4 hours previous night. Overall she has done better. She has attended 4 groups in the past one week. Social service staff discussed arranging a psychologist to see her when she returns back to the senior care. I met with her in the evening in the dayroom. Review of Systems: Ambulation impaired, in wheelchair. No CV, , pulmonary, eye, ENT system symptoms on review. Mental Status Exam: Patient is reasonably oriented. Speech pressured at times. Abstraction fair. Computation impaired. Language function intact. Attention span short. Mood and affect improved. No suicidal or homicidal ideation. Laboratory Data: Reviewed. Impression: Bipolar disorder, depressed with psychotic features. S chizoaffective disorder, bipolar type, mixed with psychotic features. Anxiety disorder unspecified. Impulse control disorder unspecified. Plan: Continue current psychotropics unchanged. Reviewed drug interactions, risk-benefit ratio. Assessment: Vital Signs/I&O: Vital Signs Date Time Temp Pulse Resp B/P (MAP) Pulse Ox O2 Delivery O2 Flow Rate FiO2 12/26/21 05:52 98.2 58 18 153/62 (92) 94 Room Air I & O 12/25/21 12/25/21 12/26/21 15:00 23:00 07:00 Intake Total 840 ml 600 ml Balance 840 ml 600 ml Current Medications: I have reviewed the current psychotropics carefully including drug interactions. Risk benefit ratio favors no change other than as noted in my dictated progress note. Diagnosis: Problems: (1) Schizoaffective disorder, bipolar type (2) Bipolar disorder, current episode mixed, severe, with psychotic features (3) Anxiety disorder (4) Mild cognitive impairment (5) Impulse control disorder ELI RAMIERZ MD December 26, 2021 07:56
[2021-12-26] MEDS: LACTOBACILLUS RHAMNOSUS GG 1 CAPSULE. PO SCH ×2 (08:15→20:01)
[2021-12-26] MEDS: CETIRIZINE HCL 10 MG TABLET PO SCH (08:15)
[2021-12-26] MEDS: amLODIPine BESYLATE 10 MG TABLET PO SCH (08:15)
[2021-12-26] MEDS: levETIRAcetam 500 MG TABLET PO SCH ×2 (08:15→20:01)
[2021-12-26] MEDS: IBUPROFEN 400 MG TABLET. PO SCH (08:16)
[2021-12-26] MEDS: clonazePAM 0.5 MG TABLET PO SCH ×2 (08:18→20:01)
[2021-12-26] MEDS: LACOSAMIDE 50 MG TABLET PO SCH ×2 (08:18→20:01)
[2021-12-26] MEDS: POLYVINYL ALCOHOL/POVIDONE/PF OPHTH SOLUTION DROPERETTE. OU SCH ×2 (08:18→20:02)
[2021-12-26] MEDS: ASPIRIN CHEWABLE 81 MG TABLET. PO SCH (08:18)
[2021-12-26] MEDS: LOSARTAN 50 MG TABLET. PO SCH (08:19)
[2021-12-26] MEDS: QUEtiapine 100 MG TABLET. PO SCH (08:19)
[2021-12-26] MEDS: OMEGA-3 FATTY ACIDS/FISH OIL 1,000 MG CAPSULE. PO SCH (08:19)
[2021-12-26] MEDS: NYSTATIN TOPICAL POWDER 15GM BOTTLE. TP SCH ×2 (08:20→20:01)
[2021-12-26] MEDS: SERTRALINE 50 MG TABLET. PO SCH (08:20)
--- NOTE | 2021-12-26 15:52 | NUR ---
Nsg Note; fay has been awake and alert today. She is A&O x3, is pleasant to converse with, enjoys spending time with and helping others, and participates in group. she has been med compliant, taking them whole.
[2021-12-26 15:57] VITALS: BP 109/70
[2021-12-26] MEDS: MIRTAZAPINE 15 MG TABLET PO SCH (20:00)
[2021-12-26] MEDS: ATORVASTATIN CALCIUM 10 MG TABLET. PO SCH (20:01)
[2021-12-26] MEDS: QUEtiapine 50 MG TABLET. PO SCH (20:01)
[2021-12-26] MEDS: DONEPEZIL HCL 10 MG TABLET PO SCH (20:01)
--- NOTE | 2021-12-26 21:28 | NUR ---
Patient in day room coloring at the table. She is interactive, calm and cooperative. Patient is oriented x4. Patient asked about a "lump" in her breast that the senior care told her she had. Nurse provided education that there are many kinds of lumps that can be found, follow up isn't done here but can be done when she discharges and then returns to her facility. There is a note on the report sheet regarding the need for follow up at discharge.
--- NOTE | 2021-12-26 21:38 | PDOC ---
Exam Note: Danny Note: Please also refer to the separate dictated note~for this date of service dictated separately.~Patient seen individually. Discussed the patient with Nursing staff reviewed the chart.~Reviewed interim history and current functioning. Reviewed vital signs,~Labs/ Radiology~and current medications noted below. Continue current treatment with the changes noted in the dictated addendum note Assessment: Vital Signs/I&O: Vital Signs Date Time Temp Pulse Resp B/P (MAP) Pulse Ox O2 Delivery O2 Flow Rate FiO2 12/26/21 15:57 97.6 60 16 109/70 (83) 95 12/26/21 05:52 Room Air I & O 12/25/21 12/25/21 12/26/21 15:00 23:00 07:00 Intake Total 840 ml 600 ml Balance 840 ml 600 ml Current Medications: Meds: Current Medications Medications (Trade) Dose Ordered Sig/Disha Route PRN Reason Start Time Stop Time Status Last Admin Dose Admin Acetaminophen (Tylenol) 650 mg PRN Q6HRS PRN PO MILD PAIN / TEMP > 100.3'F 12/17/21 14:15 Cancel Multi-Ingredient Ointment (Analgesic [place]) 1 paz PRN QID PRN TP MUSCLE PAIN 12/17/21 14:15 Al Hydroxide/Mg Hydroxide (Mylanta Plus Xs) 15 ml PRN AFTMEALHC PRN PO DYSPEPSIA 12/17/21 14:15 Cancel Magnesium Hydroxide (Milk Of Magnesia) 2,400 mg PRN QHS PRN PO CONSTIPATION 12/17/21 14:15 Cancel Acetaminophen (Tylenol) 650 mg PRN Q4HRS PRN PO MILD PAIN / TEMP > 100.3'F 12/17/21 16:30 12/23/21 01:03 Amlodipine Besylate (Norvasc) 10 mg DAILY PO 12/18/21 09:00 12/26/21 08:15 Aspirin (Aspirin Chewable) 81 mg DAILY PO 12/18/21 09:00 12/26/21 08:18 Bisacodyl (Dulcolax Tab) 10 mg PRN DAILY PRN PO 2ND CHOICE CONSTIPATION 12/17/21 16:30 Vitamin D (Vitamin D3) 50,000 unit QMONTH PO 12/21/21 09:00 12/21/21 08:42 Vitamin D (Vitamin D3) 50,000 unit QMONTH PO 01/16/22 09:00 UNV Clonazepam (KlonoPIN) 0.5 mg BID PO 12/17/21 21:00 12/26/21 20:01 Clonazepam (KlonoPIN) 0.5 mg PRN DAILY PRN PO SEIZURE 12/17/21 16:30 Donepezil HCl (Aricept) 10 mg HS PO 12/17/21 21:00 12/26/21 20:01 Ibuprofen (Motrin) 200 mg PRN DAILY PRN PO INFLAMMATION/MOD PAIN 12/17/21 17:00 12/22/21 00:11 Ibuprofen (Motrin) 400 mg DAILY PO 12/18/21 09:00 12/26/21 08:16 Levetiracetam (Keppra) 1,500 mg BID PO 12/17/21 21:00 12/26/21 20:01 Levothyroxine Sodium (Synthroid) 50 mcg DAILY06 PO 12/18/21 06:00 12/26/21 05:07 Losartan Potassium (Cozaar) 75 mg DAILY PO 12/18/21 09:00 12/26/21 08:19 Al Hydroxide/Mg Hydroxide (Mylanta Plus Xs) 30 ml PRN Q6HRS PRN PO DYSPEPSIA 12/17/21 16:30 Magnesium Hydroxide (Milk Of Magnesia) 2,400 mg PRN QHS PRN PO 1ST CHOICE CONSTIPATION 12/17/21 16:30 Mirtazapine (Remeron) 15 mg QHS PO 12/17/21 21:00 12/26/21 20:00 Quetiapine Fumarate (SEROquel) 100 mg DAILY PO 12/18/21 09:00 12/26/21 08:19 Quetiapine Fumarate (SEROquel) 150 mg QHS PO 12/17/21 21:00 12/26/21 17:05 DC 12/25/21 20:00 Sertraline HCl (Zoloft) 125 mg DAILY PO 12/18/21 09:00 12/21/21 20:53 DC 12/21/21 08:43 Artificial Tears (Refresh Classic) 1 drop BID OU 12/17/21 21:00 12/26/21 20:02 Lacosamide (Vimpat) 200 mg BID PO 12/17/21 21:00 12/26/21 20:01 Lactobacillus Rhamnosus (Culturelle) 1 cap BID PO 12/17/21 21:00 12/26/21 20:01 Loperamide HCl (Imodium) 2 mg PRN Q6HRS PRN PO LOOSE STOOLS 12/17/21 17:00 12/25/21 08:26 Cetirizine HCl (ZyrTEC) 10 mg DAILY PO 12/18/21 09:00 12/26/21 08:15 Melatonin (Melatonin) 6 mg PRN QHS PRN PO INSOMNIA 12/17/21 17:00 Non-Formulary Medication (Methyl Salicylate/Menth/ Camph (Muscle Rub Ultra Str Cream)) 114 gm BID PRN TP MUSCLE PAIN 12/17/21 16:30 UNV Atorvastatin Calcium (Lipitor) 10 mg HS PO 12/17/21 21:00 12/26/21 20:01 Fish Oil (Fish Oil) 2,000 mg DAILY PO 12/18/21 09:00 12/26/21 08:19 Nystatin (Nystop) 1 paz BID TP 12/19/21 21:00 12/26/21 20:01 Sertraline HCl (Zoloft) 150 mg DAILY PO 12/22/21 09:00 12/26/21 08:20 Quetiapine Fumarate (SEROquel) 175 mg QHS PO 12/26/21 21:00 12/26/21 20:01 Current Medications Medications (Trade) Dose Ordered Sig/Disha Route PRN Reason Start Time Stop Time Status Last Admin Dose Admin Quetiapine Fumarate (SEROquel) 175 mg QHS PO 12/26/21 21:00 12/26/21 20:01 I have reviewed the current psychotropics carefully including drug interactions. Risk benefit ratio favors no change other than as noted in my dictated progress note. Diagnosis: Problems: (1) Schizoaffective disorder, bipolar type (2) Bipolar disorder, current episode mixed, severe, with psychotic features (3) Anxiety disorder (4) Mild cognitive impairment (5) Impulse control disorder ELI RAMIREZ MD December 26, 2021 21:38
[2021-12-27] MEDS: LEVOTHYROXINE 50 MCG TABLET PO SCH (05:13)
[2021-12-27 05:58] VITALS: BP 137/64
[2021-12-27] MEDS: CETIRIZINE HCL 10 MG TABLET PO SCH (08:14)
[2021-12-27] MEDS: ASPIRIN CHEWABLE 81 MG TABLET. PO SCH (08:14)
[2021-12-27] MEDS: POLYVINYL ALCOHOL/POVIDONE/PF OPHTH SOLUTION DROPERETTE. OU SCH ×2 (08:14→19:58)
[2021-12-27] MEDS: LACOSAMIDE 50 MG TABLET PO SCH ×2 (08:14→20:00)
[2021-12-27] MEDS: LACTOBACILLUS RHAMNOSUS GG 1 CAPSULE. PO SCH ×2 (08:15→19:57)
[2021-12-27] MEDS: IBUPROFEN 400 MG TABLET. PO SCH (08:15)
[2021-12-27] MEDS: LOSARTAN 50 MG TABLET. PO SCH (08:15)
[2021-12-27] MEDS: amLODIPine BESYLATE 10 MG TABLET PO SCH (08:16)
[2021-12-27] MEDS: OMEGA-3 FATTY ACIDS/FISH OIL 1,000 MG CAPSULE. PO SCH (08:16)
[2021-12-27] MEDS: SERTRALINE 50 MG TABLET. PO SCH (08:16)
[2021-12-27] MEDS: levETIRAcetam 500 MG TABLET PO SCH ×2 (08:16→19:57)
[2021-12-27] MEDS: QUEtiapine 100 MG TABLET. PO SCH (08:16)
[2021-12-27] MEDS: clonazePAM 0.5 MG TABLET PO SCH ×2 (08:16→20:00)
[2021-12-27] MEDS: NYSTATIN TOPICAL POWDER 15GM BOTTLE. TP SCH ×2 (08:17→20:01)
[2021-12-27] MEDS: ACETAMINOPHEN 325 MG TABLET PO PRN (14:39)
[2021-12-27 15:00] VITALS: BP 108/70
--- NOTE | 2021-12-27 17:46 | NUR ---
Nsg Note; Felicia has been awake and alert through the day. She likes to be with others and stays in the dayroom between meals talking with peers and staff. She likes to tell stories about her past. She in A&O x3 and pleasant and cooperative. She needs a one person assist for transfers to and from her w/c but is able to self propel the w/c down the trim[place].
[2021-12-27] MEDS: ATORVASTATIN CALCIUM 10 MG TABLET. PO SCH (19:57)
[2021-12-27] MEDS: QUEtiapine 50 MG TABLET. PO SCH (19:57)
[2021-12-27] MEDS: DONEPEZIL HCL 10 MG TABLET PO SCH (19:58)
[2021-12-27] MEDS: MIRTAZAPINE 15 MG TABLET PO SCH (19:58)
--- NOTE | 2021-12-27 21:59 | PDOC ---
Exam Note: Danny Note: Please also refer to the separate dictated note~for this date of service dictated separately.~Patient seen individually. Discussed the patient with Nursing staff reviewed the chart.~Reviewed interim history and current functioning. Reviewed vital signs,~Labs/ Radiology~and current medications noted below. Continue current treatment with the changes noted in the dictated addendum note Assessment: Vital Signs/I&O: Vital Signs Date Time Temp Pulse Resp B/P (MAP) Pulse Ox O2 Delivery O2 Flow Rate FiO2 12/27/21 15:00 97.8 63 18 108/70 (83) 96 Room Air I & O 12/26/21 12/26/21 12/27/21 15:00 23:00 07:00 Intake Total 840 ml 660 ml Balance 840 ml 660 ml Current Medications: Meds: Current Medications Medications (Trade) Dose Ordered Sig/Disha Route PRN Reason Start Time Stop Time Status Last Admin Dose Admin Acetaminophen (Tylenol) 650 mg PRN Q6HRS PRN PO MILD PAIN / TEMP > 100.3'F 12/17/21 14:15 Cancel Multi-Ingredient Ointment (Analgesic [place]) 1 paz PRN QID PRN TP MUSCLE PAIN 12/17/21 14:15 Al Hydroxide/Mg Hydroxide (Mylanta Plus Xs) 15 ml PRN AFTMEALHC PRN PO DYSPEPSIA 12/17/21 14:15 Cancel Magnesium Hydroxide (Milk Of Magnesia) 2,400 mg PRN QHS PRN PO CONSTIPATION 12/17/21 14:15 Cancel Acetaminophen (Tylenol) 650 mg PRN Q4HRS PRN PO MILD PAIN / TEMP > 100.3'F 12/17/21 16:30 12/27/21 14:39 Amlodipine Besylate (Norvasc) 10 mg DAILY PO 12/18/21 09:00 12/27/21 08:16 Aspirin (Aspirin Chewable) 81 mg DAILY PO 12/18/21 09:00 12/27/21 08:14 Bisacodyl (Dulcolax Tab) 10 mg PRN DAILY PRN PO 2ND CHOICE CONSTIPATION 12/17/21 16:30 Vitamin D (Vitamin D3) 50,000 unit QMONTH PO 12/21/21 09:00 12/21/21 08:42 Vitamin D (Vitamin D3) 50,000 unit QMONTH PO 01/16/22 09:00 UNV Clonazepam (KlonoPIN) 0.5 mg BID PO 12/17/21 21:00 12/27/21 20:00 Clonazepam (KlonoPIN) 0.5 mg PRN DAILY PRN PO SEIZURE 12/17/21 16:30 Donepezil HCl (Aricept) 10 mg HS PO 12/17/21 21:00 12/27/21 19:58 Ibuprofen (Motrin) 200 mg PRN DAILY PRN PO INFLAMMATION/MOD PAIN 12/17/21 17:00 12/22/21 00:11 Ibuprofen (Motrin) 400 mg DAILY PO 12/18/21 09:00 12/27/21 08:15 Levetiracetam (Keppra) 1,500 mg BID PO 12/17/21 21:00 12/27/21 19:57 Levothyroxine Sodium (Synthroid) 50 mcg DAILY06 PO 12/18/21 06:00 12/27/21 05:13 Losartan Potassium (Cozaar) 75 mg DAILY PO 12/18/21 09:00 12/27/21 08:15 Al Hydroxide/Mg Hydroxide (Mylanta Plus Xs) 30 ml PRN Q6HRS PRN PO DYSPEPSIA 12/17/21 16:30 Magnesium Hydroxide (Milk Of Magnesia) 2,400 mg PRN QHS PRN PO 1ST CHOICE CONSTIPATION 12/17/21 16:30 Mirtazapine (Remeron) 15 mg QHS PO 12/17/21 21:00 12/27/21 19:58 Quetiapine Fumarate (SEROquel) 100 mg DAILY PO 12/18/21 09:00 12/27/21 08:16 Quetiapine Fumarate (SEROquel) 150 mg QHS PO 12/17/21 21:00 12/26/21 17:05 DC 12/25/21 20:00 Sertraline HCl (Zoloft) 125 mg DAILY PO 12/18/21 09:00 12/21/21 20:53 DC 12/21/21 08:43 Artificial Tears (Refresh Classic) 1 drop BID OU 12/17/21 21:00 12/27/21 19:58 Lacosamide (Vimpat) 200 mg BID PO 12/17/21 21:00 12/27/21 20:00 Lactobacillus Rhamnosus (Culturelle) 1 cap BID PO 12/17/21 21:00 12/27/21 19:57 Loperamide HCl (Imodium) 2 mg PRN Q6HRS PRN PO LOOSE STOOLS 12/17/21 17:00 12/25/21 08:26 Cetirizine HCl (ZyrTEC) 10 mg DAILY PO 12/18/21 09:00 12/27/21 08:14 Melatonin (Melatonin) 6 mg PRN QHS PRN PO INSOMNIA 12/17/21 17:00 Non-Formulary Medication (Methyl Salicylate/Menth/ Camph (Muscle Rub Ultra Str Cream)) 114 gm BID PRN TP MUSCLE PAIN 12/17/21 16:30 UNV Atorvastatin Calcium (Lipitor) 10 mg HS PO 12/17/21 21:00 12/27/21 19:57 Fish Oil (Fish Oil) 2,000 mg DAILY PO 12/18/21 09:00 12/27/21 08:16 Nystatin (Nystop) 1 paz BID TP 12/19/21 21:00 12/27/21 20:01 Sertraline HCl (Zoloft) 150 mg DAILY PO 12/22/21 09:00 12/27/21 08:16 Quetiapine Fumarate (SEROquel) 175 mg QHS PO 12/26/21 21:00 12/27/21 19:57 I have reviewed the current psychotropics carefully including drug interactions. Risk benefit ratio favors no change other than as noted in my dictated progress note. Diagnosis: Problems: (1) Schizoaffective disorder, bipolar type (2) Bipolar disorder, current episode mixed, severe, with psychotic features (3) Anxiety disorder (4) Mild cognitive impairment (5) Impulse control disorder ELI RAMIREZ MD December 27, 2021 21:59
--- NOTE | 2021-12-27 21:59 | PDOC ---
Exam Note: Danny Note: This note is a late entry for 12/26/2021 covers elements not covered in my initial note. Subjective: The patient was seen individually on 12/26/2021, discussed and reviewed the chart with Zaria RIOS. The patient slept 7 hours previous night. She did well in the morning. In the evening she was tearful, crying because one of the other demented patients told her that she was old. We processed this at length individually and she was able to show some insight into not reacting to others comments. We will increase Zoloft from 150 mg a day to 175 mg a day as well for her mood symptoms. Review of Systems: Ambulation impaired, in wheelchair. No CV, , pulmonary, eye, ENT system symptoms on review. Mental Status Exam: Patient is reasonably oriented. I met with her in the dayroom. She is quite verbal, animated, was working on a coloring project and quite animated discussing this. Speech pressured at times. Abstraction fair. Computation impaired. Language function intact. Attention span short. Mood and affect improved. No suicidal or homicidal ideation. Laboratory Data: Reviewed. Impression: Bipolar disorder, depressed with psychotic features. Schizoaffective disorder, bipolar type, mixed with psychotic features. Anxiety disorder unspecified. Impulse control disorder unspecified. Plan: Continue current psychotropics unchanged. Reviewed drug interactions, risk-benefit ratio. Assessment: Vital Signs/I&O: Vital Signs Date Time Temp Pulse Resp B/P (MAP) Pulse Ox O2 Delivery O2 Flow Rate FiO2 12/27/21 15:00 97.8 63 18 108/70 (83) 96 Room Air I & O 12/26/21 12/26/21 12/27/21 15:00 23:00 07:00 Intake Total 840 ml 660 ml Balance 840 ml 660 ml Current Medications: I have reviewed the current psychotropics carefully including drug interactions. Risk benefit ratio favors no change other than as noted in my dictated progress note. Diagnosis: Problems: (1) Schizoaffective disorder, bipolar type (2) Bipolar disorder, current episode mixed, severe, with psychotic features (3) Anxiety disorder (4) Mild cognitive impairment (5) Impulse control disorder ELI RAMIREZ MD December 27, 2021 21:58
--- NOTE | 2021-12-27 23:18 | NUR ---
Patient was sitting in the day room, interactive with peers and staff. She is alert and oriented x4, compliant with medication and cooperative with cares.
[2021-12-28] MEDS: LEVOTHYROXINE 50 MCG TABLET PO SCH (05:41)
[2021-12-28 06:04] VITALS: BP 138/78
[2021-12-28] MEDS: LOSARTAN 50 MG TABLET. PO SCH (08:38)
[2021-12-28] MEDS: LACOSAMIDE 50 MG TABLET PO SCH ×2 (08:38→20:18)
[2021-12-28] MEDS: LACTOBACILLUS RHAMNOSUS GG 1 CAPSULE. PO SCH ×2 (08:38→20:15)
[2021-12-28] MEDS: QUEtiapine 100 MG TABLET. PO SCH (08:39)
[2021-12-28] MEDS: POLYVINYL ALCOHOL/POVIDONE/PF OPHTH SOLUTION DROPERETTE. OU SCH ×2 (08:39→20:15)
[2021-12-28] MEDS: IBUPROFEN 400 MG TABLET. PO SCH (08:39)
[2021-12-28] MEDS: OMEGA-3 FATTY ACIDS/FISH OIL 1,000 MG CAPSULE. PO SCH (08:39)
[2021-12-28] MEDS: ASPIRIN CHEWABLE 81 MG TABLET. PO SCH (08:39)
[2021-12-28] MEDS: clonazePAM 0.5 MG TABLET PO SCH ×2 (08:39→20:18)
[2021-12-28] MEDS: CETIRIZINE HCL 10 MG TABLET PO SCH (08:39)
[2021-12-28] MEDS: SERTRALINE 50 MG TABLET. PO SCH (08:39)
[2021-12-28] MEDS: levETIRAcetam 500 MG TABLET PO SCH ×2 (08:39→20:15)
[2021-12-28] MEDS: amLODIPine BESYLATE 10 MG TABLET PO SCH (08:39)
[2021-12-28] MEDS: NYSTATIN TOPICAL POWDER 15GM BOTTLE. TP SCH ×2 (09:00→21:00)
--- NOTE | 2021-12-28 14:35 | NUR ---
Nursing note: Patient in dinning room for morning medications & assessment. She is compliant with medications taken whole. She c/o chronic right knee pain, pain medications given per order. She self propels in w/c & self transfers. Stand by assist is required when transferring on or off the toilet r/t knee sometimes giving out. She has been social, pleasant & cooperative. She is currently in the day room. Will continue to monitor.
[2021-12-28 15:52] VITALS: BP 116/73
[2021-12-28] MEDS: ACETAMINOPHEN 325 MG TABLET PO PRN (17:16)
[2021-12-28] MEDS: QUEtiapine 50 MG TABLET. PO SCH (20:15)
[2021-12-28] MEDS: MIRTAZAPINE 15 MG TABLET PO SCH (20:15)
[2021-12-28] MEDS: ATORVASTATIN CALCIUM 10 MG TABLET. PO SCH (20:15)
[2021-12-28] MEDS: DONEPEZIL HCL 10 MG TABLET PO SCH (20:15)
--- NOTE | 2021-12-28 21:48 | PDOC ---
Exam Note: Danny Note: Please also refer to the separate dictated note~for this date of service dictated separately.~Patient seen individually. Discussed the patient with Nursing staff reviewed the chart.~Reviewed interim history and current functioning. Reviewed vital signs,~Labs/ Radiology~and current medications noted below. Continue current treatment with the changes noted in the dictated addendum note Assessment: Vital Signs/I&O: Vital Signs Date Time Temp Pulse Resp B/P (MAP) Pulse Ox O2 Delivery O2 Flow Rate FiO2 12/28/21 15:52 97.6 60 20 116/73 (87) 98 Room Air I & O 12/27/21 12/27/21 12/28/21 15:00 23:00 07:00 Intake Total 480 ml 600 ml Balance 480 ml 600 ml Current Medications: Meds: Current Medications Medications (Trade) Dose Ordered Sig/Disha Route PRN Reason Start Time Stop Time Status Last Admin Dose Admin Acetaminophen (Tylenol) 650 mg PRN Q6HRS PRN PO MILD PAIN / TEMP > 100.3'F 12/17/21 14:15 Cancel Multi-Ingredient Ointment (Analgesic [place]) 1 paz PRN QID PRN TP MUSCLE PAIN 12/17/21 14:15 Al Hydroxide/Mg Hydroxide (Mylanta Plus Xs) 15 ml PRN AFTMEALHC PRN PO DYSPEPSIA 12/17/21 14:15 Cancel Magnesium Hydroxide (Milk Of Magnesia) 2,400 mg PRN QHS PRN PO CONSTIPATION 12/17/21 14:15 Cancel Acetaminophen (Tylenol) 650 mg PRN Q4HRS PRN PO MILD PAIN / TEMP > 100.3'F 12/17/21 16:30 12/28/21 17:16 Amlodipine Besylate (Norvasc) 10 mg DAILY PO 12/18/21 09:00 12/28/21 08:39 Aspirin (Aspirin Chewable) 81 mg DAILY PO 12/18/21 09:00 12/28/21 08:39 Bisacodyl (Dulcolax Tab) 10 mg PRN DAILY PRN PO 2ND CHOICE CONSTIPATION 12/17/21 16:30 Vitamin D (Vitamin D3) 50,000 unit QMONTH PO 12/21/21 09:00 12/21/21 08:42 Vitamin D (Vitamin D3) 50,000 unit QMONTH PO 01/16/22 09:00 UNV Clonazepam (KlonoPIN) 0.5 mg BID PO 12/17/21 21:00 12/28/21 20:18 Clonazepam (KlonoPIN) 0.5 mg PRN DAILY PRN PO SEIZURE 12/17/21 16:30 Donepezil HCl (Aricept) 10 mg HS PO 12/17/21 21:00 12/28/21 20:15 Ibuprofen (Motrin) 200 mg PRN DAILY PRN PO INFLAMMATION/MOD PAIN 12/17/21 17:00 12/22/21 00:11 Ibuprofen (Motrin) 400 mg DAILY PO 12/18/21 09:00 12/28/21 08:39 Levetiracetam (Keppra) 1,500 mg BID PO 12/17/21 21:00 12/28/21 20:15 Levothyroxine Sodium (Synthroid) 50 mcg DAILY06 PO 12/18/21 06:00 12/28/21 05:41 Losartan Potassium (Cozaar) 75 mg DAILY PO 12/18/21 09:00 12/28/21 08:38 Al Hydroxide/Mg Hydroxide (Mylanta Plus Xs) 30 ml PRN Q6HRS PRN PO DYSPEPSIA 12/17/21 16:30 Magnesium Hydroxide (Milk Of Magnesia) 2,400 mg PRN QHS PRN PO 1ST CHOICE CONSTIPATION 12/17/21 16:30 Mirtazapine (Remeron) 15 mg QHS PO 12/17/21 21:00 12/28/21 20:15 Quetiapine Fumarate (SEROquel) 100 mg DAILY PO 12/18/21 09:00 12/28/21 08:39 Quetiapine Fumarate (SEROquel) 150 mg QHS PO 12/17/21 21:00 12/26/21 17:05 DC 12/25/21 20:00 Sertraline HCl (Zoloft) 125 mg DAILY PO 12/18/21 09:00 12/21/21 20:53 DC 12/21/21 08:43 Artificial Tears (Refresh Classic) 1 drop BID OU 12/17/21 21:00 12/28/21 20:15 Lacosamide (Vimpat) 200 mg BID PO 12/17/21 21:00 12/28/21 20:18 Lactobacillus Rhamnosus (Culturelle) 1 cap BID PO 12/17/21 21:00 12/28/21 20:15 Loperamide HCl (Imodium) 2 mg PRN Q6HRS PRN PO LOOSE STOOLS 12/17/21 17:00 12/25/21 08:26 Cetirizine HCl (ZyrTEC) 10 mg DAILY PO 12/18/21 09:00 12/28/21 08:39 Melatonin (Melatonin) 6 mg PRN QHS PRN PO INSOMNIA 12/17/21 17:00 Non-Formulary Medication (Methyl Salicylate/Menth/ Camph (Muscle Rub Ultra Str Cream)) 114 gm BID PRN TP MUSCLE PAIN 12/17/21 16:30 UNV Atorvastatin Calcium (Lipitor) 10 mg HS PO 12/17/21 21:00 12/28/21 20:15 Fish Oil (Fish Oil) 2,000 mg DAILY PO 12/18/21 09:00 12/28/21 08:39 Nystatin (Nystop) 1 paz BID TP 12/19/21 21:00 12/28/21 09:00 Sertraline HCl (Zoloft) 150 mg DAILY PO 12/22/21 09:00 12/28/21 08:39 Quetiapine Fumarate (SEROquel) 175 mg QHS PO 12/26/21 21:00 12/28/21 20:15 I have reviewed the current psychotropics carefully including drug interactions. Risk benefit ratio favors no change other than as noted in my dictated progress note. Diagnosis: Problems: (1) Schizoaffective disorder, bipolar type (2) Bipolar disorder, current episode mixed, severe, with psychotic features (3) Anxiety disorder (4) Mild cognitive impairment (5) Impulse control disorder ELI RAMIREZ MD December 28, 2021 21:47
--- NOTE | 2021-12-29 00:18 | NUR ---
Nursing Note The patient was located in the day room for her assessment and medication pass. The patient was alert to self, date and location. The patient was interactive and appropriate with peers and staff. The patient took her medication whole. The patient is currently sleeping in her room.
[2021-12-29] MEDS: LEVOTHYROXINE 50 MCG TABLET PO SCH (05:44)
[2021-12-29 05:51] VITALS: BP 142/82
--- NOTE | 2021-12-29 08:24 | PDOC ---
Exam Note: Danny Note: This note is a late entry for 12/27/2021 covers elements not covered in my initial note. Subjective: The patient was seen individually on 12/27/2021, discussed and reviewed the chart with Zaria RIOS. The patient slept 6-1/4 hours previous night. Overall she has done better. No overt crying spells. I met with her in her room. Review of Systems: Ambulation impaired, in wheelchair. No CV, , pulmonary, eye, ENT system symptoms on review. Mental Status Exam: Patient is reasonably oriented. Speech pressured at times. Abstraction fair. Computation impaired. Language function intact. Attention span short. Mood and affect improved. No suicidal or homicidal ideation. Laboratory Data: Reviewed. Impression: Bipolar disorder, depressed with psychotic features. Schizoaffective disorder, bipolar type, mixed with psychotic features. Anxiety disorder unspecified. Impulse control disorder unspecified. Plan: Continue current psychotropics unchanged. Reviewed drug interactions, risk-benefit ratio. Tentative discharge on Wednesday. Assessment: Vital Signs/I&O: Vital Signs Date Time Temp Pulse Resp B/P (MAP) Pulse Ox O2 Delivery O2 Flow Rate FiO2 12/29/21 05:51 97.1 60 20 142/82 (102) 90 Room Air I & O 12/28/21 12/28/21 12/29/21 15:00 23:00 07:00 Intake Total 600 ml 720 ml Balance 600 ml 720 ml Current Medications: I have reviewed the current psychotropics carefully including drug interactions. Risk benefit ratio favors no change other than as noted in my dictated progress note. Diagnosis: Problems: (1) Schizoaffective disorder, bipolar type (2) Bipolar disorder, current episode mixed, severe, with psychotic features (3) Anxiety disorder (4) Mild cognitive impairment (5) Impulse control disorder ELI RAMIREZ MD December 29, 2021 08:24
[2021-12-29] MEDS: LACOSAMIDE 50 MG TABLET PO SCH (08:27)
[2021-12-29] MEDS: ASPIRIN CHEWABLE 81 MG TABLET. PO SCH (08:27)
[2021-12-29] MEDS: LACTOBACILLUS RHAMNOSUS GG 1 CAPSULE. PO SCH (08:27)
[2021-12-29] MEDS: OMEGA-3 FATTY ACIDS/FISH OIL 1,000 MG CAPSULE. PO SCH (08:28)
[2021-12-29] MEDS: QUEtiapine 100 MG TABLET. PO SCH (08:28)
[2021-12-29] MEDS: IBUPROFEN 400 MG TABLET. PO SCH (08:28)
[2021-12-29] MEDS: SERTRALINE 50 MG TABLET. PO SCH (08:28)
[2021-12-29] MEDS: levETIRAcetam 500 MG TABLET PO SCH (08:28)
[2021-12-29 08:30] VITALS: BP 142/82
[2021-12-29] MEDS: amLODIPine BESYLATE 10 MG TABLET PO SCH (08:30)
[2021-12-29] MEDS: LOSARTAN 50 MG TABLET. PO SCH (08:30)
[2021-12-29] MEDS: POLYVINYL ALCOHOL/POVIDONE/PF OPHTH SOLUTION DROPERETTE. OU SCH (08:30)
[2021-12-29] MEDS: CETIRIZINE HCL 10 MG TABLET PO SCH (08:30)
[2021-12-29] MEDS: clonazePAM 0.5 MG TABLET PO SCH (08:30)
--- NOTE | 2021-12-29 08:56 | PDOC ---
Exam Note: Danny Note: This note is a late entry for 12/28/2021 covers elements not covered in my initial note. Subjective: The patient was seen individually on 12/28/2021, discussed and reviewed the chart with Thaddeus RIOS. The patient slept 7-1/2 hours previous night. Overall she states she talked to her brother today who told her she is moving to a different [facility]. She has been anxious, compliant with medications, pleasant. Review of Systems: Positive for impaired ambulation, in wheelchair. No CV, , pulmonary, eye, ENT system symptoms on review. Mental Status Exam: Patient is reasonably oriented. Speech coherent, rapid at times. Abstraction fair. Computation impaired. Language function intact. Mood and affect somewhat anxious. No suicidal or homicidal ideation. Laboratory Data: Reviewed. Impression: Bipolar disorder, depressed with psychotic features. Schizoaffective disorder, bipolar type, mixed with psychotic features. Anxiety disorder unspecified. Impulse control disorder unspecified. Plan: Continue current psychotropics unchanged. Reviewed drug interactions, risk-benefit ratio. Assessment: Vital Signs/I&O: Vital Signs Date Time Temp Pulse Resp B/P (MAP) Pulse Ox O2 Delivery O2 Flow Rate FiO2 12/29/21 08:30 60 142/82 12/29/21 05:51 97.1 20 90 Room Air I & O 12/28/21 12/28/21 12/29/21 15:00 23:00 07:00 Intake Total 600 ml 720 ml Balance 600 ml 720 ml Current Medications: I have reviewed the current psychotropics carefully including drug interactions. Risk benefit ratio favors no change other than as noted in my dictated progress note. Diagnosis: Problems: (1) Schizoaffective disorder, bipolar type (2) Bipolar disorder, current episode mixed, severe, with psychotic features (3) Anxiety disorder (4) Mild cognitive impairment (5) Impulse control disorder ELI RAMIREZ MD December 29, 2021 08:56
[2021-12-29] MEDS: NYSTATIN TOPICAL POWDER 15GM BOTTLE. TP SCH (09:00)
--- NOTE | 2021-12-29 12:45 | NUR ---
[facility] Social Work Discharge Planning Form Patient Name KEE LAW Admit Date: 17 December 2021 DISCHARGE PLAN Discharge Destination: Pt to discharge to [facility] Care Assessment: N/A Level II Assessment: N/A Transportation: Facility to pick pt up between 1400 -- 1430 Special Instructions/Notes: Please fax discharge orders, discharge medications and discharge summary to the fax number listed below. DISCHARGE TO FACILITY Facility: [facility] Address: [address] [place] [id number] Contact Name: Brody Payan Director Of Staff Development: Contact Name: Please ask for nurse caring for pt upon admission. PCP: Ting Viera
[2021-12-29] MEDS ORDERED: CETI10TA16 PO (13:12)
[2021-12-29] MEDS ORDERED: ATOR10TA60 PO (13:15)
[2021-12-29] MEDS ORDERED: SERT100T PO (13:20)
[2021-12-29] MEDS ORDERED: CARB15DR3 EACHEYE (13:25)
[2021-12-29] MEDS ORDERED: POLY15DR25 EACHEYE (13:27)
[2021-12-29] MEDS ORDERED: NYST15PO9 TP (13:31)
--- NOTE | 2021-12-29 14:39 | NUR ---
Transition Record was faxed to follow-up provider with the following elements: Reason for admission, procedures, tests, principal diagnosis, pending studies, patient instructions, 15/03 contact information for unit, phone number to obtain pending test results, plan for follow-up care, physician follow-up, advanced directive information, and medication list with dose, duration and instructions. This information was included in the following documents: History and physical, lab results, study results, progress notes, social work planning form, DC instruction form, patient visit summary, and medication reconciliation form. Date & time record faxed: 12/29/21@7265 Record faxed to: [facility] [phone] Record discussed with/ report given to: BLANCA Sanchez 12/29/21@1405
[2021-12-29] MEDS ORDERED: LACO200T PO (14:40)
[2021-12-29] MEDS ORDERED: CLON0.5T4 PO (14:40)
--- NOTE | 2021-12-30 01:37 | DS ---
DATE OF DISCHARGE: 12/29/2021 DISCHARGE SUMMARY/PSYCHIATRIC PROGRESS VISIT This note covers elements not covered in my initial note, 12/29. REASON FOR ADMISSION: Please refer to the admission history for details. Briefly, the patient is a 71-year-old female referred to us from [facility] in [place], [place] on account of an acute exacerbation of her schizoaffective disorder, bipolar type, mixed, with psychotic features. She was agitated, screaming, crying hysterically, expressing that she does not like "this Felicia." She had marked mood lability, expressed hopes that the staff "fucking ." She was depressed, anxious, name calling, threatening to punch a peer. She had failed outpatient psychiatric interventions. Behaviors deemed unmanageable, dangerous at the facility resulting in this referral. SIGNIFICANT FINDINGS AND CLINICAL COURSE: Following admission, the patient was seen daily individually by myself from a psychiatric standpoint, medical followup, Dr. Stearns/Dr. Krishnan. The patient appeared to have some ongoing mood lability, anxiety. Adjustments were made in her psychotropic. She seemed to respond to a combination of Klonopin 0.5 mg b.i.d. and p.r.n., Aricept 10 mg at bedtime, Keppra 1500 mg b.i.d., Remeron 15 mg at bedtime, Seroquel 100 mg daily and 175 mg at bedtime, lacosamide 200 mg b.i.d. for his seizures, Zoloft 150 mg a day, melatonin 6 mg at bedtime p.r.n. Gradually mood appeared to improve. She appeared pleasant, calmer. No suicidal or homicidal ideation. Paranoia was improved. REVIEW OF SYSTEMS: Prior to discharge, ambulation impaired, wheelchair. No CV, , pulmonary, eye system symptoms on review. MENTAL STATUS EXAMINATION: Oriented to herself and situation. Speech coherent. Abstraction fair. Computation reasonable. Language function intact. Attention span fair. Mood and affect improved. No suicidal or homicidal ideation. LABORATORY DATA: Reviewed. FINAL DIAGNOSES: Schizoaffective disorder, bipolar type, mixed, with psychotic features, in partial remission; anxiety disorder, unspecified; impulse control disorder, unspecified. Rest unchanged from admission. DISCHARGE MEDICATIONS: Please refer to the [facility]AD. DISCHARGE INSTRUCTIONS: Outpatient psychiatric and medical followup at the care home. Time for discharge day management greater than [address]: Juliet TID: [id number]
--- NOTE | 2021-12-30 08:49 | PDOC ---
Exam Note: Danny Note: Late entry for 12/29/2021. Please also refer to the separate dictated note~for this date of service dictated separately.~Patient seen individually. Discussed the patient with Nursing staff reviewed the chart.~Reviewed interim history and current functioning. Reviewed vital signs,~Labs/ Radiology~and current medic ations noted below. Continue current treatment with the changes noted in the dictated addendum note Assessment: Vital Signs/I&O: Vital Signs Date Time Temp Pulse Resp B/P (MAP) Pulse Ox O2 Delivery O2 Flow Rate FiO2 12/29/21 08:30 60 142/82 12/29/21 05:51 97.1 20 90 Room Air I & O 12/29/21 12/29/21 12/30/21 15:00 23:00 07:00 Intake Total 720 ml Balance 720 ml Current Medications: I have reviewed the current psychotropics carefully including drug interactions. Risk benefit ratio favors no change other than as noted in my dictated progress note. Diagnosis: Problems: (1) Bipolar 1 disorder, mixed, partial remission (2) Schizoaffective disorder, bipolar type (3) Anxiety disorder (4) Impulse control disorder ELI RAMIREZ MD December 30, 2021 08:49
[2022-01-16] MEDS ORDERED: CHOLECALCIFEROL (VITAMIN D3) 50,000 UNIT CAPSULE PO SCH (09:00)
== END 2021-12-29 15:00 | DRG 885 ==
LOC: GEROPSY 13:47
PROVIDERS: ADMIT Psychiatry & Neurology Psychiatry; ATTEND Psychiatry & Neurology Psychiatry
DX: F25.0 Schizoaffective disorder, bipolar type (principal); F03.91 Unspecified dementia, unspecified severity, with behavioral disturbance; E03.9 Hypothyroidism, unspecified; E78.5 Hyperlipidemia, unspecified; F41.9 Anxiety disorder, unspecified; Z20.822 Contact with and (suspected) exposure to COVID-19; F63.9 Impulse disorder, unspecified; G40.909 Epilepsy, unspecified, not intractable, without status epilepticus; I10 Essential (primary) hypertension; K21.9 Gastro-esophageal reflux disease without esophagitis; M81.0 Age-related osteoporosis without current pathological fracture; Z79.899 Other long term (current) drug therapy; K59.09 Other constipation; Z88.8 Allergy status to other drugs, medicaments and biological substances; Z91.048 Other nonmedicinal substance allergy status
CPT/HCPCS: 36415; 80053; 80061; 81001; 82306; 83036; 83540; 83550; 83735; 84436; 84443; 84480; 85025; 85379; 86592; U0003; 97530